=== PATIENT | female | born 1965 | race Caucasian/White ===

== ENCOUNTER → 2022-06-15 08:17 | Outpatient (CLI) | payer OTHER, SELFPAY ==
[2022-06-15 08:27] LABS: Microscopic, Urine URINE MICROSCOPIC (MICROSCOPIC)
[2022-06-15 08:53] LABS: Appearance,Urine SL CLOUDY (Clear); Bilirubin,Urine Negative (Negative); Blood, Urine TRACE-L (Negative); Color,Urine YELLOW (Yellow); Glucose,Urine (UA) Negative (Negative); Ketones,Urine Negative (Negative); Leukocyte Esterase,Urine 3+ (Negative); Nitrate,Urine Negative (Negative); Protein,Urine Negative (Negative); Specific Gravity, Urine 1.015 (1.005-1.030); Urobilinogen,Urine 0.2 EU/dl (0.2)
[2022-06-15 08:57] LABS: Basophils % 0.2 % (0.1-2.0); Eosinophils # 0.1 K/mm3 (0.0-0.4); Eosinophils % 1.1 % (0.1-12.0); Lymphocytes # 2.4 K/mm3 (0.7-4.5); Lymphocytes % 21.6 % (10-50); Mean Corpuscular HGB Conc 31.7 g/dL (31.8-35.4); Mean Corpuscular Hemoglobin 33.6 pg (27.0-31.2); Mean Corpuscular Volume 106.1 fl (81-99); Mean Platelet Volume 9.2 fl (7.4-10.4); Monocytes # 0.7 K/mm3 (0.1-1.0); Monocytes % 6.2 % (1.7-9.3); Neutrophils # 7.9 K/mm3 (1.8-7.8); Neutrophils % 70.8 % (37.0-80.0); Platelet Count 225 K/mm3 (142-424); Red Blood Count 3.86 M/mm3 (4.20-5.40); Red Cell Distribution Width 13.6 % (11.5-17.5); White Blood Count 11.1 K/mm3 (4.8-10.8)
[2022-06-15 09:01] LABS: Hemoglobin A1C 7.1 % (4.0-6.0)
[2022-06-15 09:12] LABS: Bacteria,Urine 1+ /lpf
[2022-06-15 09:24] LABS: Alanine Aminotransferase 28 U/L (12-78); Albumin Level 3.9 g/dl (3.5-5.0); Albumin/Globulin Ratio 1.9 (1.1-1.8); Alkaline Phosphatase 68 U/L (38-126); Anion Gap 4.8 mEq/L (5-15); Aspartate Amino Transferase 34 U/L (14-36); Bilirubin,Total 0.5 mg/dl (0.2-1.3); Blood Urea Nitrogen 14 mg/dl (7-17); Carbon Dioxide 29 mmol/L (22.0-30.0); Chloride 105 mmol/L (98-107); Chol/HDL Ratio 2.1 (1-3.5); Cholesterol 146 mg/dl (140-200); Estimated Glomerular Filt Rate 127 ml/min (>60); GFR (African American) 154 ML/MIN (>60); Globulin 2.1 g/dL (1.3-3.2); Glucose 96 mg/dl (74-100); HDL Cholesterol 71 mg/dl (40-60); Potassium 3.8 mmoL/L (3.5-5.1); Sodium 135 mmol/L (136-145); Triglycerides 103 mg/dl (30-150); VLDL Cholesterol 21 mg/dL (0-40)
[2022-06-15 09:29] LABS: Erythrocyte Sedimentation Rate 19 mm/hr (0-30)
[2022-06-15 09:35] LABS: C-Reactive Protein 5.4 mg/L (0-4); Direct LDL Cholesterol 63.93 mg/dL (100-129)
== END ==
PROVIDERS: PCP Nurse Practitioner Family; Visit Provider Nurse Practitioner Family
DX: M54.50 Low back pain, unspecified (principal); I48.91 Unspecified atrial fibrillation; I10 Essential (primary) hypertension; E11.9 Type 2 diabetes mellitus without complications; Z13.1 Encounter for screening for diabetes mellitus; Z13.220 Encounter for screening for lipoid disorders; Z79.84 Long term (current) use of oral hypoglycemic drugs; Z79.899 Other long term (current) drug therapy
CPT/HCPCS: 36415; 80053; 80061; 81001; 83036; 84443; 85025; 85651; 86140; 87086

== ENCOUNTER → 2022-06-22 08:56 | Outpatient (CLI) | payer OTHER, SELFPAY ==
--- NOTE | 2022-06-22 08:56 | XR_ITS ---
FINAL REPORT TECHNIQUE: Bone densitometry calculations of the lumbar spine and left hip were obtained. CLINICAL HISTORY: . POST MENOPAUSAL SCREENING FINDINGS: DEXA BONE DENSITY AXIAL SKELETON Using L1-4, the bone mineral density of the spine is 1.312 g/cm2, corresponding to T-score of 2.4 Using the left hip, the bone mineral density of the femoral neck is 0.795 g/cm2, corresponding to a T-score of -0.5 NOTE: T-score: Standard deviation compared with peak bone mass of young adult mean. *Following the recommendations of the International Society of Bone densitometry, classification of hip BMD is based on the lower of two T-scores; total hip or femoral neck. IMPRESSION: Normal bone mineral density of the lumbar spine and left hip. Reviewed, Interpreted and Dictated by Will Villatoro III, MD Transcribed by Luly Benítez Authenticated and [facility]
== END ==
PROVIDERS: PCP Nurse Practitioner Family; Visit Provider Nurse Practitioner Family
DX: Z78.0 Asymptomatic menopausal state (principal); Z13.820 Encounter for screening for osteoporosis
CPT/HCPCS: 77080

== ENCOUNTER → 2022-07-01 15:12 | Outpatient (CLI) | payer OTHER, SELFPAY | PROVIDERS: PCP Nurse Practitioner Family; Visit Provider Nurse Practitioner Family | DX: I42.9 Cardiomyopathy, unspecified (principal) | CPT/HCPCS: 93306 ==

== ENCOUNTER → 2022-07-05 12:57 | Outpatient (POV) | payer OTHER, SELFPAY ==
--- NOTE | 2022-07-05 13:16 | EXP.PAIN.OV ---
HPI Data of Consult Patient: new to practice Consult date: 07/05/22 Requesting Physician: Merced Cox APRN Primary Care Provider: Lori Petersen APRN Consult Narrative Reason for consult: Low back pain, bilateral leg pain, bilateral hip pain History of present illness: Ms. Goodrich is a 56 year old female who presents today as a new patient. She is a referral from Lori Petersen's office. Today she rates her pain a 7 out of 10. Patient states her pain is all in her low back with radiating symptoms into her bilateral lower extremities. She does describe this as a constant aching sensation with occasional sharp pains with certain movements. She states this has been going on for years and progressively worsened over time. She does state she notices more stiffness in the mornings and harder to bend and then it gets better as the day goes on. Patient does state that she also has hip pain that is worse due to being a side sleeper. She describes this as a sharp throbbing sensation with certain movements. Patient states that she was previously in a pain management group there in [place] for approximately 4 years where she was given pain medication as well as injections such as an epidural. She states these were hit or miss and sometimes they would provide 6 to 7 months of relief with just 1 injection. Patient has tried [id number] Tylenol with no additional relief. She does states she has an allergy to ibuprofen. Patient has also tried heat and ice and topical such as Biofreeze and CBD creams with no additional relief. Patient was also tried on gabapentin in the past however it made her very sick and she discontinued this. patient does have a history of A-fib and is currently on Eliquis. Patient states she is currently prescribed [place] 10 mg 4 times a day. Patient denies any side effects from this medication. She states that they did just move in May. Patient has had recent physical therapy just last year however it worsened her pain symptoms. She is interested in any additional help we can provide to give better pain improvement. Her Angel is [phone]. Its been reviewed and appropriate. CC: Merced Cox APRN [facility] Disclaimer: The information contained in this section may have been updated after the patient was seen, as this information can be updated by other users. Medical History (Updated 07/05/22 @ 16:16 by Merced Cox APRN) Afib Asthma BMI 32.0-32.9,adult Echocardiogram abnormal Encounter for screening for diabetes mellitus Establishing care with new doctor, encounter for H/O cardiovascular stress test Heart failure with reduced ejection fraction Paroxysmal A-fib Surgical History H/O colonoscopy History of partial hysterectomy Hx of tonsillectomy S/P ORIF (open reduction internal fixation) fracture Family History Father Diabetes Cancer colon Hypertension Social History (Updated 07/05/22 @ 13:36 by Jes Carvalho, BETSY) Smoking Status: Never smoker alcohol intake: current substance use type: denies use current occupational status: retired Travel in the last 8 weeks: None household members: spouse housing: house marital status: number of children: 3 current occupation: retired Review of Systems Review of Systems Review of systems:: pertinent systems reviewed and negative unless documented below Review of systems (narrative): Review of Systems: General: No recent weight changes, no fever, no sleep disturbances Respiratory: No cough, no shortness of air, no recurring pulmonary infections Cardiovascular/peripheral vascular: No chest pain, no palpitations, no edema, no shortness of breath Gastrointestinal: No new onset incontinence, normal bowel movements reported Genitourinary: No new onset incontinence Musculoskeletal: Low back pain, bilateral leg pain, bilateral h
[2022-07-05 13:35] VITALS: BP 129/79; PULSE 66; RESP 18; O2SAT 98; BMI 30.8
== END | disposition home or self-care (01) ==
PROVIDERS: PCP Nurse Practitioner Family; Visit Provider Nurse Practitioner Family
DX: M54.16 Radiculopathy, lumbar region (principal); M54.50 Low back pain, unspecified; M25.551 Pain in right hip; M25.552 Pain in left hip
CPT/HCPCS: 99202; G0463

== ENCOUNTER → 2022-07-05 14:07 | Outpatient (CLI) | payer OTHER, SELFPAY ==
--- NOTE | 2022-07-05 14:15 | XR_ITS ---
FINAL REPORT CLINICAL HISTORY: PAIN, low back pain FINDINGS: Five views were obtained. There is no acute fracture. There is no malalignment. There is moderate disc space narrowing throughout the lumbar spine. There is endplate sclerosis and anterior osteophytes at L2-L3 through L5-S1. There is vacuum disc phenomenon at L3-L4, L4-L5 and L5-S1. IMPRESSION: Moderate degenerative disc disease. Reviewed, Interpreted and Dictated by eKndrick Dee MD Transcribed by Saad Chávez Authenticated and [facility]
== END ==
PROVIDERS: PCP Nurse Practitioner Family; Visit Provider Anesthesiology
DX: M54.50 Low back pain, unspecified (principal)
CPT/HCPCS: 72110

== ENCOUNTER 2022-07-13 10:38 | Day surgery (SDC) | payer OTHER, SELFPAY ==
[2022-07-13 10:52] VITALS: BP 123/79; PULSE 78; RESP 18; TEMP 36.5; O2SAT 97; BMI 30.8
[2022-07-13 11:01] VITALS: BP 133/73; PULSE 60; RESP 18; O2SAT 98
[2022-07-13 11:02] VITALS: BP 133/73; PULSE 60; RESP 18; O2SAT 98
[2022-07-13 11:15] VITALS: BP 127/79; PULSE 78; RESP 18; O2SAT 97
--- NOTE | 2022-07-13 11:33 | P.PCN_ITS ---
Procedure Date: 07/13/22 Time: 11:00 Anesthesiologist:: Hakeem Franco CRNA Complications:: None Pre-procedure Diagnosis:: Degenerative disc disease lumbar spine multilevels. Lumbar radiculopathy Post-procedure Diagnosis:: Same. Indications for Procedure:: Patient is a very pleasant 56-year-old female comes our clinic today for lumbar epidural steroid injection at the L4-5 level. Patient complains of low back pain as well as bilateral hip and leg radicular symptoms at times. Patient r ates her pain today 08/14 Procedure Details:: Procedure: Lumbar epidural steroid injection under fluoroscopy Informed consent was obtained and the risks and benefits of the procedure were explained to the patient. The patient was taken to the procedure room and noninvasive monitors placed, including noninvasive blood pressure cuff and pulse oximeter. The back was viewed using C-arm Fluoroscopy and prepped using Chloraprep as a cleansing solution and the L4-L5 interspace was palpated. Skin and subcutaneous tissues were anesthetized using lidocaine 1.5% and a 25-gauge needle. After this, an 18-gauge Touhy epidural needle was placed into the L4-L5 interspace and advanced using fluoroscopic guidance and loss of resistance to air until the epidural space was encountered. After confirmation of needle placement in the epidural space, with dye, a solution containing normal saline, 3 mL and Depo-Medrol 80 mg were incrementally injected into the lumbar epidural space. The patient tolerated the procedure well with no complications. The patient was observed in the Pain Clinic and then discharged home neurologically intact. Plan and Disposition:: Patient was discharged without incident.
== END 2022-07-13 11:15 | disposition home or self-care (01) ==
LOC: SC.PAINP 10:39
PROVIDERS: PCP Nurse Practitioner Family; Visit Provider Nurse Anesthetist, Certified Registered
DX: M51.16 Intervertebral disc disorders with radiculopathy, lumbar region (principal)
CPT/HCPCS: 62323; J1040

== ENCOUNTER → 2022-08-12 14:59 | Outpatient (POV) | payer OTHER, SELFPAY ==
--- NOTE | 2022-08-12 15:02 | EXP.PAIN.SOA ---
[facility] Pain Management SOAP Note Subjective:: Patient is a pleasant 56-year-old female who presents today for follow-up of lumbar epidural steroid injection of L4-L5 on 07/13/2022. We are currently treating the patient for degenerative disc disease of lumbar spine with lumbar radiculopathy symptoms, bilateral hip pain. Today she rates her pain a 7 out of 10.? She denies any new trauma or injury. She denies any change in location or type of pain she experiences. She states the injection did provide at least 50% improvements however only lasting a couple of days. Patient states she was able to increase her activity during that timeframe with decreased pain symptoms. Today she states she is back to her baseline and states the pain continues to be in her low back with radiating symptoms into her lower extremities. She does describe this as an aching sensation with occasional sharp pains with certain movements.? Patient states the pain does interfere with her ability to perform activities of daily living such as cooking and cleaning. This is a chronic pain that has been going on for years and progressively worsened over time.?At her last visit we did prescribe methocarbamol 500 mg at bedtime. Patient states that she did not notice any additional improvement with this medication or the compounding cream. she has an allergy to ibuprofen.?She does have a history of A-fib and is currently on Eliquis.? She is currently prescribed [place] 10 mg 4 times a day.? Patient denies any side effects from this medication.? She states that they did just move in May.? Patient has had recent physical therapy just last year however it worsened her pain symptoms.? She is interested in any additional help we can provide to give better pain improvement.? Her Angel is [phone].? Its been reviewed and appropriate. Review of Systems: General: No recent weight changes, no fever, no sleep disturbances Respiratory: No cough, no shortness of air, no recurring pulmonary infections Cardiovascular/peripheral vascular: No chest pain, no palpitations, no edema, no shortness of breath Gastrointestinal: No new onset incontinence, normal bowel movements reported Genitourinary: No new onset incontinence Musculoskeletal: Low back pain Psychiatric: [Normal mood/affect] Neurological: [Denies weakness in extremities], [denies balance issues] Objective:: Physical Exam: General: Alert and oriented x3, no acute distress, pleasant and cooperative Lungs: Respirations even and unlabored, symmetrical chest expansion Eyes: PERRL Musculoskeletal: Flexion and extension of lumbar [spine] somewhat guarded secondary to pain, [antalgic gait noted] Neurological: Speech clear, no gross sensory deficit Assessment:: Degenerative disc disease of lumbar spine with lumbar radiculopathy symptoms, low back pain, bilateral hip pain Plan:: Patient is experiencing significant pain in her low back with limited range of motion. I have discussed with patient that she may benefit from repeat lumbar epidural steroid injection. Risk and benefits were discussed with the patient and she would like to proceed forward with this plan of care. Patient did have at least 50% improvement with her last injection only lasting short-term. Patient is on blood thinners and will have to come off of this prior to her injection. We will contact her doctor and confirm that she can stop taking this medication. I will also order the patient tizanidine 4 mg at bedtime and provide a 2-week supply of this medication. I have counseled the patient to discontinue the methocarbamol. We will schedule the patient for an LESI L4-L5. Patient has been instructed to contact the clinic with any concerns before the next appointment. Dr. Jones has reviewed this note and agrees with this plan of care. This note was dictated using voice recognition software and make contain errors or omissions. [facility] Disclaimer: The information contained in this section may have
[2022-08-12 15:07] VITALS: BP 115/80; PULSE 73; RESP 18; O2SAT 98; BMI 29.7
== END | disposition home or self-care (01) ==
PROVIDERS: PCP Nurse Practitioner Family; Visit Provider Nurse Practitioner Family
DX: M51.16 Intervertebral disc disorders with radiculopathy, lumbar region (principal); M25.551 Pain in right hip; M25.552 Pain in left hip
CPT/HCPCS: 99212; G0463

== ENCOUNTER 2022-08-12 21:31 | Emergency (ER) | payer OTHER, SELFPAY ==
[2022-08-12 21:40] VITALS: BP 145/74; PULSE 102; RESP 18; TEMP 36.8; O2SAT 96; BMI 29.7
--- NOTE | 2022-08-12 21:47 | XR_ITS ---
PROCEDURE INFORMATION: Exam: XR Chest Exam date and time: 08/12/2022 10:31 PM Age: 56 years old Clinical indication: Fever TECHNIQUE: Imaging protocol: Radiologic exam of the chest. Views: 2 views. COMPARISON: No relevant prior studies available. FINDINGS: Lungs: Unremarkable. No consolidation. Pleural spaces: Unremarkable. No pleural effusion. No pneumothorax. Heart/Mediastinum: Unremarkable. No cardiomegaly. Bones/joints: Multilevel degenerative disc and joint space changes of thoracolumbar spine. Vertebral body heights grossly preserved. IMPRESSION: No acute findings. No infiltration identified.
--- NOTE | 2022-08-12 21:47 | CT_ITS ---
PROCEDURE INFORMATION: Exam: CT Abdomen And Pelvis With Contrast Exam date and time: 08/12/2022 10:44 PM Age: 56 years old Clinical indication: Abdominal pain; Additional info: Rlq pain TECHNIQUE: Imaging protocol: Computed tomography of the abdomen and pelvis with contrast. Radiation optimization: All CT scans at this facility use at least one of these dose optimization techniques: automated exposure control; mA and/or kV adjustment per patient size (includes targeted exams where dose is matched to clinical indication); or iterative reconstruction. Contrast material: ISOVUE; Contrast volume: 75 ml; Contrast route: IV; REPORTING DATA: Count of CT and Cardiac NM exams in prior 12 months: This patient has received 0 known CTs and 0 known cardiac nuclear medicine studies in the 12 months prior to the current study. COMPARISON: CR XR CHEST 2V 08/12/2022 10:31 PM FINDINGS: Liver: Fatty liver infiltration. Liver measures 20 cm. Gallbladder and bile ducts: Normal. No calcified stones. No ductal dilation. Pancreas: Normal. No ductal dilation. Spleen: Normal. No splenomegaly. Adrenal glands: Normal. No mass. Kidneys and ureters: Normal. No hydronephrosis. Stomach and bowel: Scattered colonic diverticula without pericolonic fat stranding. Appendix: No evidence of appendicitis. Intraperitoneal space: Unremarkable. No free air. No significant fluid collection. Vasculature: Unremarkable. No abdominal aortic aneurysm. Lymph nodes: Unremarkable. No enlarged lymph nodes. Urinary bladder: Unremarkable as visualized. Reproductive: Unremarkable as visualized. Bones/joints: Multilevel degenerative disc and joint space changes most pronounced at L4/5 and L5/S1. Vertebral body heights grossly preserved. Cortices intact. Soft tissues: Unremarkable. IMPRESSION: 1. Hepatomegaly with fatty liver infiltration. 2. Colonic diverticulosis.
[2022-08-12 21:57] LABS: Basophils % 0.2 % (0.1-2.0); Eosinophils # 0.4 K/mm3 (0.0-0.4); Eosinophils % 4.8 % (0.1-12.0); Hematocrit 43.2 % (37.0-47.0); Hemoglobin 13.3 g/dL (12.2-16.2); Lymphocytes # 0.5 K/mm3 (0.7-4.5); Lymphocytes % 5.9 % (10-50); Mean Corpuscular HGB Conc 30.8 g/dL (31.8-35.4); Mean Corpuscular Hemoglobin 31.9 pg (27.0-31.2); Mean Corpuscular Volume 103.7 fl (81-99); Mean Platelet Volume 8.4 fl (7.4-10.4); Monocytes # 0.2 K/mm3 (0.1-1.0); Monocytes % 2.4 % (1.7-9.3); Neutrophils # 6.8 K/mm3 (1.8-7.8); Neutrophils % 86.6 % (37.0-80.0); Platelet Count 277 K/mm3 (142-424); Red Blood Count 4.17 M/mm3 (4.20-5.40); Red Cell Distribution Width 12.6 % (11.5-17.5); White Blood Count 7.9 K/mm3 (4.8-10.8)
[2022-08-12 22:03] LABS: Alanine Aminotransferase 31 U/L (12-78); Albumin Level 4.3 g/dl (3.5-5.0); Albumin/Globulin Ratio 1.4 (1.1-1.8); Alkaline Phosphatase 96 U/L (38-126); Amylase 50 U/L (30-110); Anion Gap 13.4 mEq/L (5-15); Aspartate Amino Transferase 43 U/L (14-36); Bilirubin,Total 0.6 mg/dl (0.2-1.3); Blood Urea Nitrogen 9 mg/dl (7-17); Calcium 8.9 mg/dl (8.4-10.2); Carbon Dioxide 29 mmol/L (22.0-30.0); Chloride 98 mmol/L (98-107); Creatinine Clearance Estimated 153 mL/min (50-200); Estimated Glomerular Filt Rate 103 ml/min (>60); GFR (African American) 125 ML/MIN (>60); Globulin 3.1 g/dL (1.3-3.2); Glucose 93 mg/dl (74-100); Lipase 127 U/L (23-300); Potassium 4.4 mmoL/L (3.5-5.1); Sodium 136 mmol/L (136-145); Total Protein,Serum 7.4 g/dl (6.3-8.2)
[2022-08-12 22:08] LABS: C-Reactive Protein 12.1 mg/L (0-4)
--- NOTE | 2022-08-12 22:16 | HMH.EDABDPAI ---
Discharge Plan Disposition Patient Disposition: Home, Self-Care Chief Complaint: Abdominal Pain Prescriptions Prescriptions: No Action levalbuterol tartrate [Xopenex HFA] 45 mcg/actuation HFA aerosol inhaler 2 puff inhalation Q4-6H PRN (Reason: Breathing Problems) lisinopril 20 mg tablet 20 mg PO DAILY escitalopram oxalate [Lexapro] 20 mg tablet 20 mg PO DAILY Eliquis 5 mg tablet 5 mg PO BID conjugated estrogens 0.625 mg tablet 0.625 mg PO DAILY Rx Instructions: cyclically sotalol [Betapace] 120 mg tablet 120 mg PO BID montelukast [Singulair] 10 mg tablet 10 mg PO HS fluticasone furoate-vilanterol [Breo Ellipta] 200-25 mcg/dose blister with device 1 inh inhalation BID multivitamin Tablet 1 tab PO DAILY albuterol sulfate 90 mcg/actuation HFA aerosol inhaler 2 inh inhalation Q6H PRN (Reason: shortness of breath or wheezing) 90 Days Qty: 8.5 1RF (DME) FreeStyle Lite Strips Strip See Rx Instructions .ROUTE .MEDSUPPLY Rx Instructions: As directed (DME) blood-glucose meter [FreeStyle Lite Meter] Kit See Rx Instructions .ROUTE .MEDSUPPLY Rx Instructions: As directed alcohol swabs [Alcohol Pads] Pads, Medicated 1 pad topical QID Trulicity 0.75 mg/0.5 mL pen injector 0.75 mg SQ WEEKLY azelastine 137 mcg (0.1 %) aerosol,spray 2 spray intranasal HS Rx Instructions: administer into each nostril fluticasone propionate [Flonase Allergy Relief] 50 mcg/actuation spray,suspension 2 spray intranasal DAILY Rx Instructions: administer into each nostril aripiprazole 5 mg tablet 5 mg PO AM fluticasone furoate-vilanterol [Breo Ellipta] 200-25 mcg/dose blister with device 1 inh inhalation DAILY tizanidine [Zanaflex] 4 mg tablet 4 mg PO HS Qty: 14 0RF Referrals Follow up/Referrals: Lori Petersen APRN [Primary Care Provider] - See instructions Clinical Impressions Clinical Impression: Febrile illness, acute Instructions Patient Instructions: DI for Fever (Symptom) -- Adult Discharge ED Provider: Stefanie (ED)Jn Abdominal Pain HPI General Chief Complaint: Abdominal Pain Stated Complaint: fever,chills,stomach pain,body aches Time Seen by Provider: 08/12/22 21:50 Mode of Arrival: Ambulatory Source of Information: Patient, Spouse and Medical Record Limitations: No Limitations Description of Symptoms (Recalled from ER Triage Doc. by RN): pt c/o myalgia, chills, fever (103F), RLQ pain, and nausea. pt also c/o a rash to her RLE that she believes started from insect bites. pt states she started feeling bad around 1630. History of Present Illness HPI narrative: acute onset of chills and achey and reported fever at home - nausea and no diarrhea - no cough - limited rash to rt lower leg - no known tick bite Onset (ago): hour(s) Consistency: intermittent Severity: moderate Related Data Home Medications Medication Instructions Recorded Confirmed apixaban 5 mg tablet (Eliquis) 5 mg PO BID Blood thinner 06/14/22 08/12/22 conjugated estrogens 0.625 mg 0.625 mg PO DAILY HORMONE 06/14/22 08/12/22 tablet REPLACEMENT escitalopram oxalate 20 mg tablet 20 mg PO DAILY MOOD 06/14/22 08/12/22 (Lexapro) fluticasone furoate 200 1 inh inhalation BID Breathing 06/14/22 08/12/22 mcg-vilanterol 25 mcg/dose problems inhalation powder (Breo Ellipta) levalbuterol tartrate 45 2 puff inhalation Q4-6H PRN 06/14/22 08/12/22 mcg/actuation aerosol inhaler Breathing Problems (Xopenex HFA) lisinopril 20 mg tablet 20 mg PO DAILY BLOOD PRESSURE 06/14/22 08/12/22 montelukast 10 mg tablet 10 mg PO HS ALLERGIES 06/14/22 08/12/22 (Singulair) multivitamin 1 tab PO DAILY SUPPLIMENT 06/14/22 08/12/22 sotalol 120 mg tablet (Betapace) 120 mg PO BID BLOOD PRESSURE 06/14/22 08/12/22 alcohol swabs (Alcohol Pads) 1 pad topical QID Diabetes 07/05/22 08/12/22 blood sugar diagnostic (FreeStyle
[2022-08-12 22:21] LABS: MANUAL DIFFERENTIAL MANUAL DIFFERENTIAL (MANUAL DIFF)
[2022-08-12 22:39] LABS: Coronavirus 19, PCR Not Detected (NotDetected); Influenza A, PCR Not Detected (NotDetected); Influenza B, PCR Not Detected (NotDetected)
[2022-08-12 22:40] LABS: Eosinophils % 4 % (0-3); Lymphocytes % 8 % (10-50); Macrocytosis 1+; Monocytes % 2 % (2-9); Neutrophils % 85 % (42-76); Platelet Estimate Normal; Stomatocytes 1+; Total Cells Counted 100
[2022-08-12 22:43] LABS: Erythrocyte Sedimentation Rate 20 mm/hr (0-30)
[2022-08-12 22:47] LABS: Lactic Acid 1.4 mmol/L (0.7-2.1)
[2022-08-12 23:07] LABS: Microscopic, Urine URINE MICROSCOPIC (MICROSCOPIC)
[2022-08-12 23:10] LABS: Appearance,Urine CLEAR (Clear); Bilirubin,Urine Negative (Negative); Blood, Urine TRACE-I (Negative); Color,Urine YELLOW (Yellow); Glucose,Urine (UA) Negative (Negative); Ketones,Urine Negative (Negative); Leukocyte Esterase,Urine Negative (Negative); Nitrate,Urine Negative (Negative); PH,Urine 5.5 (5.0-8.5); Protein,Urine Negative (Negative); Urobilinogen,Urine 0.2 EU/dl (0.2)
[2022-08-13 05:46] VITALS: BP 137/78; PULSE 90; RESP 18; TEMP 36.8; O2SAT 96
[2022-08-13 06:29] LABS: RBC,Urine Occasional #/hpf (0-3)
[2022-08-13 06:30] LABS: Squamous Epithelial Cell,Urine Occasional #/hpf (0-5)
== END 2022-08-13 00:04 | disposition home or self-care (01) ==
PROVIDERS: Emergency Provider Emergency Medicine; PCP Nurse Practitioner Family
DX: R10.31 Right lower quadrant pain (principal); R11.0 Nausea; R50.9 Fever, unspecified; I50.20 Unspecified systolic (congestive) heart failure; I48.0 Paroxysmal atrial fibrillation; J45.909 Unspecified asthma, uncomplicated
CPT/HCPCS: 71046; 74177; 80053; 81001; 82150; 83605; 83690; 85007; 85025; 85651; 86140; 87040; 87635; 87636; 96361; 96374; 96375; 99284; 99285; C9803; J0131; J2405; Q9967; U0003; U0005

== ENCOUNTER 2022-08-31 12:44 | Day surgery (SDC) | payer OTHER, SELFPAY ==
[2022-08-31 13:04] VITALS: BP 116/84; PULSE 78; RESP 18; TEMP 36.4; O2SAT 94; BMI 28.8
[2022-08-31 13:17] VITALS: BP 128/79; PULSE 78; RESP 18; O2SAT 98
[2022-08-31 13:18] VITALS: BP 128/79; PULSE 78; RESP 18; O2SAT 98
--- NOTE | 2022-08-31 13:27 | EXP.PAIN.PRO ---
Procedure Date: 08/31/22 Time: 13:20 Anesthesiologist:: Hakeem Franco CRNA Complications:: None Pre-procedure Diagnosis:: Degenerative disc lumbar spine multilevels. Lumbar radiculopathy Post-procedure Diagnosis:: Same. Indications for Procedure:: Very pleasant 56-year-old female comes our clinic today for second lumbar epidural steroid injections L4-5 level. Patient complains of low back pain as well as bilateral hip and leg radicular pain. She rates her pain 7/10. Patient reports minimal relief after her first lumbar epidural steroid injection at the L4-5 level. I think it is reasonable to attempt a second injection for relief. Procedure Details:: Informed consent was obtained and the risks and benefits of the procedure were explained to the patient. The patient was taken to the procedure room and noninvasive monitors placed, including noninvasive blood pressure cuff and pulse oximeter. The back was viewed using C-arm Fluoroscopy and prepped using Chloraprep as a cleansing solution and the L4-L5 interspace was palpated. Skin and subcutaneous tissues were anesthetized using lidocaine 1.5% and a 25-gauge needle. After this, an 18-gauge Touhy epidural needle was placed into the L4-L5 interspace and advanced using fluoroscopic guidance and loss of resistance to air until the epidural space was encountered. After confirmation of needle placement in the epidural space, with dye, a solution containing normal saline, 3 mL and Depo-Medrol 80 mg were incrementally injected into the lumbar epidural space. The patient tolerated the procedure well with no complications. Plan and Disposition:: Patient was discharged without incident.
[2022-08-31 13:32] VITALS: BP 111/82; PULSE 78; RESP 18; O2SAT 94
== END 2022-08-31 13:32 | disposition home or self-care (01) ==
PROVIDERS: PCP Nurse Practitioner Family; Visit Provider Nurse Anesthetist, Certified Registered
DX: M51.16 Intervertebral disc disorders with radiculopathy, lumbar region (principal)
CPT/HCPCS: 62323; J1040

== ENCOUNTER → 2022-09-17 10:35 | Outpatient (POV) | payer OTHER, SELFPAY ==
[2022-09-17 10:56] VITALS: BP 121/79; PULSE 68; RESP 18; O2SAT 97; BMI 29.3
--- NOTE | 2022-09-17 11:05 | A.OFFVIS_ITS ---
[facility] Pain Management SOAP Note Subjective:: This patient is a very pleasant 56-year-old female that comes our clinic today for follow-up visit after receiving a second lumbar epidural steroid injection on 08/31/2022 the L4-5 level. Patient reporting significant improvement following the injection terms of her low back pain as well as bilateral hip and leg radicular symptoms. Patient rates her pain today 3/10. Patient states she is having some increase in the left hip and leg radicular symptoms. However, not anywhere near as bad as it was prior to the second lumbar epidural steroid injection. Patient requesting a third lumbar epidural steroid injection within the next 4 weeks. I think this would be reasonable. Her Angel #[phone] has been reviewed and appropriate. Patient does have a history of atrial fibrillation. She is on Eliquis. I discussed with her regarding discontinuing this for 48 hours prior to the injection. She voices understanding. Objective:: Patient is awake alert [place] x3. In no acute distress. Flexion-extension lumbar spine somewhat guarded secondary to pain. Deep tendon reflexes upper lower extremities normal. Motor strength upper and lower extremities normal. There is no gross sensory deficit. Gait is normal. Assessment:: Degenerative disc disease lumbar spine multilevels. Lumbar radiculopathy. Plan:: We will schedule the patient for a third lumbar epidural steroid injection at the L4-5 level. I discussed in detail with the patient regarding the injection. Answered her questions. She wishes to proceed. [facility] Disclaimer: The information contained in this section may have been updated after the patient was seen, as this information can be updated by other users. Medical History Afib Allergic rhinitis Asthma BMI 30.0-30.9,adult BMI 32.0-32.9,adult Dyspnea on exertion Echocardiogram abnormal Encounter for screening for diabetes mellitus Establishing care with new doctor, encounter for Febrile illness, acute H/O cardiovascular stress test Heart failure with reduced ejection fraction Paroxysmal A-fib Surgical History H/O colonoscopy History of partial hysterectomy Hx of tonsillectomy S/P ORIF (open reduction internal fixation) fracture Family History Father Diabetes Cancer colon Hypertension Social History Smoking Status: Never smoker alcohol intake: current substance use type: denies use current occupational status: retired Travel in the last 8 weeks: None household members: spouse housing: house marital status: number of children: 3 current occupation: retired
== END ==
PROVIDERS: PCP Nurse Practitioner Family; Visit Provider Nurse Practitioner Family
DX: M51.16 Intervertebral disc disorders with radiculopathy, lumbar region (principal)
CPT/HCPCS: 99212; G0463

== ENCOUNTER 2022-10-15 13:14 | Day surgery (SDC) | payer OTHER, SELFPAY ==
[2022-10-15 13:30] VITALS: BP 136/88; PULSE 79; RESP 18; TEMP 36.5; O2SAT 97; BMI 29.4
[2022-10-15 13:46] VITALS: BP 132/87; PULSE 76; RESP 18; O2SAT 95
[2022-10-15 13:47] VITALS: BP 132/87; PULSE 74; RESP 18; O2SAT 95
--- NOTE | 2022-10-15 13:58 | EXP.PAIN.PRO ---
Procedure Date: 10/15/22 Time: 13:55 Anesthesiologist:: Hakeem Franco CRNA Complications:: None
[2022-10-15 14:00] VITALS: BP 135/89; PULSE 76; RESP 18; O2SAT 97
--- NOTE | 2022-10-15 14:08 | P.PCN_ITS ---
Procedure Date: 10/15/22 Time: 14:00 Anesthesiologist:: Hakeem Franco CRNA Complications:: None Pre-procedure Diagnosis:: Degenerative disc lumbar spine multilevels. Lumbar radiculopathy. Lumbar spinal stenosis. Multilevel lumbar facet arthropathy. Lumbar spondylosis Post-procedure Diagnosis:: Same Indications for Procedure:: This patient is a very pleasant 57-year-old female that comes our clinic today for a third lumbar epidural steroid injection at L4-5 level. Patient has had so me moderate improvement terms of her overall low back pain as well as bilateral hip and leg radicular symptoms with previous injections. However, patient states the injections are not lasting. Patient has severe degenerative disc L4- 5 and L5-S1. Discussed spine surgery consultation with the patient. She wishes to proceed. Patient not really interested in having back surgery however, she would like to be informed as to what her options are. I will refer her to Dr. Stewart for consultation. Procedure Details:: Procedure: Lumbar epidural steroid injection under fluoroscopy Informed consent was obtained and the risks and benefits of the procedure were explained to the patient. The patient was taken to the procedure room and noninvasive monitors placed, including noninvasive blood pressure cuff and pulse oximeter. The back was viewed using C-arm Fluoroscopy and prepped using Chloraprep as a cleansing solution and the L4-L5 interspace was palpated. Skin and subcutaneous tissues were anesthetized using lidocaine 1.5% and a 25-gauge needle. After this, an 18-gauge Touhy epidural needle was placed into the L4-L5 interspace and advanced using fluoroscopic guidance and loss of resistance to air until the epidural space was encountered. After confirmation of needle placement in the epidural space, with dye, a solution containing normal saline, 3 mL and Depo-Medrol 80 mg were incrementally injected into the lumbar epidural space. The patient tolerated the procedure well with no complications. The patient was observed in the Pain Clinic and then discharged home neurologically intact. Plan and Disposition:: Patient was discharged without incident.
== END 2022-10-15 14:00 | disposition home or self-care (01) ==
LOC: SC.PAINP 13:14
PROVIDERS: PCP Nurse Practitioner Family; Visit Provider Nurse Anesthetist, Certified Registered
DX: M51.16 Intervertebral disc disorders with radiculopathy, lumbar region (principal); M47.26 Other spondylosis with radiculopathy, lumbar region
CPT/HCPCS: 62323

== ENCOUNTER → 2022-11-01 12:53 | Outpatient (CLI) | payer OTHER, SELFPAY ==
--- NOTE | 2022-11-01 13:51 | PC.NURSE ---
PFT and 6 Minute Walk Test completed without incident. Albuterol 0.083% given via HHN, per protocol, Pt tolerated tx well.
[2022-11-01 16:16] LABS: Basophils % 0.5 % (0.1-2.0); Eosinophils # 0.6 K/mm3 (0.0-0.4); Eosinophils % 7.4 % (0.1-12.0); Hemoglobin 13.9 g/dL (12.2-16.2); Lymphocytes # 2.6 K/mm3 (0.7-4.5); Lymphocytes % 32.4 % (10-50); Mean Corpuscular Hemoglobin 34.9 pg (27.0-31.2); Mean Corpuscular Volume 105.5 fl (81-99); Mean Platelet Volume 8.4 fl (7.4-10.4); Monocytes # 0.6 K/mm3 (0.1-1.0); Monocytes % 6.9 % (1.7-9.3); Neutrophils # 4.3 K/mm3 (1.8-7.8); Neutrophils % 52.7 % (37.0-80.0); Platelet Count 275 K/mm3 (142-424); Red Blood Count 3.98 M/mm3 (4.20-5.40); Red Cell Distribution Width 13.7 % (11.5-17.5); White Blood Count 8.1 K/mm3 (4.8-10.8)
[2022-11-05 00:09] LABS: D001-IgE D pteronyssinus <0.10 kU/L (Class 0); D002-IgE D farinae <0.10 kU/L (Class 0); E001-IgE Cat Dander <0.10 kU/L (Class 0); E005-IgE Dog Dander <0.10 kU/L (Class 0); E072-IgE Mouse Urine <0.10 kU/L (Class 0); G002-IgE Bermuda Grass <0.10 kU/L (Class 0); G006-IgE Timothy Grass <0.10 kU/L (Class 0); I006-IgE Cockroach, German <0.10 kU/L (Class 0); Immunoglobulin E, Total 212 IU/mL (6-495); M001-IgE Penicillium chrysogen <0.10 kU/L (Class 0); M002-IgE Cladosporium herbarum <0.10 kU/L (Class 0); M003-IgE Aspergillus fumigatus <0.10 kU/L (Class 0); M006-IgE Alternaria alternata <0.10 kU/L (Class 0); T001-IgE Maple/Box Elder <0.10 kU/L (Class 0); T003-IgE Common Silver Birch <0.10 kU/L (Class 0); T006-IgE Cedar, Mountain <0.10 kU/L (Class 0); T007-IgE Oak, White <0.10 kU/L (Class 0); T008-IgE Elm, American <0.10 kU/L (Class 0); T010-IgE Walnut <0.10 kU/L (Class 0); T011-IgE Maple Leaf Sycamore <0.10 kU/L (Class 0); T014-IgE Cottonwood <0.10 kU/L (Class 0); T015-IgE Ash, White <0.10 kU/L (Class 0); T022-IgE Pecan, Hickory <0.10 kU/L (Class 0); T070-IgE White Mulberry <0.10 kU/L (Class 0); W001-IgE Ragweed, Short <0.10 kU/L (Class 0); W011-IgE Thistle, Russian <0.10 kU/L (Class 0); W014-IgE Pigweed, Common <0.10 kU/L (Class 0); W018-IgE Sheep Sorrel <0.10 kU/L (Class 0)
== END ==
PROVIDERS: PCP Nurse Practitioner Family; Visit Provider Internal Medicine Pulmonary Disease
DX: R06.09 Other forms of dyspnea (principal); J45.909 Unspecified asthma, uncomplicated
CPT/HCPCS: 36415; 82785; 85025; 86003; 94060; 94618; 94726; 94729

== ENCOUNTER → 2022-12-28 09:51 | Outpatient (CLI) | payer OTHER, SELFPAY ==
--- NOTE | 2022-12-28 09:55 | XR_ITS ---
FINAL REPORT CLINICAL HISTORY: hip pain FINDINGS: 2 views of the right hip were obtained. There is no acute fracture or dislocation. There are mild degenerative changes of the right hip. There is degenerative change of the lower lumbar spine. Pelvic calcifications likely represent phleboliths. IMPRESSION: No acute process. Reviewed, Interpreted and Dictated by Will Villatoro III, MD Transcribed by Saad Chávez Authenticated and [facility]
--- NOTE | 2022-12-28 09:55 | XR_ITS ---
FINAL REPORT CLINICAL HISTORY: hip pain FINDINGS: Left hip Three views were obtained. There is no acute fracture or dislocation. There are degenerative changes of the lower lumbar spine. There are mild degenerative changes of the hip. Multiple presumed phleboliths are seen in the pelvis. There is chronic calcification adjacent to the greater trochanter. No soft tissue abnormality is identified. IMPRESSION: Degenerative changes without acute process. Reviewed, Interpreted and Dictated by Will Villatoro III, MD Transcribed by Jessica Cerda Authenticated and [facility]
== END ==
PROVIDERS: PCP Emergency Medicine; Visit Provider Emergency Medicine
DX: M25.551 Pain in right hip (principal); M25.552 Pain in left hip
CPT/HCPCS: 73502

== ENCOUNTER → 2023-01-20 09:41 | Outpatient (CLI) | payer OTHER, SELFPAY ==
--- NOTE | 2023-01-20 09:42 | MM_ITS ---
PROCEDURE INFORMATION: Exam: MG Bilateral Screening 3D Mammography Exam date and time: 01/20/2023 9:46 AM Age: 57 years old Clinical indication: Screening examination TECHNIQUE: Imaging protocol: Bilateral Screening tomosynthesis and 2D mammography including computer-aided detection (CAD) when performed. COMPARISON: 1. MG MA Mammogram Screening Digital with CAD-Bilateral 09/29/2021 8:07 AM 2. MG SCREENING MAMMOGRAPHY DIGITAL 01/02/2020 10:29 AM FINDINGS: MAMMOGRAPHY: Breast composition: There are scattered areas of fibroglandular density. Mass: None. Architectural distortion: None. Calcifications: No suspicious calcifications. Asymmetric density: None. Skin thickening: None. Axillary adenopathy: None. IMPRESSION: No mammographic evidence of malignancy. Annual screening is recommended unless otherwise clinically indicated. ASSESSMENT: BI-RADS Category 1: Negative
== END ==
PROVIDERS: PCP Emergency Medicine; Visit Provider Emergency Medicine
DX: Z12.31 Encounter for screening mammogram for malignant neoplasm of breast (principal)
CPT/HCPCS: 77063; 77067

== ENCOUNTER → 2023-02-18 23:48 | Outpatient (CLI) | payer OTHER, SELFPAY ==
[2023-02-18 18:37] LABS: Hemoglobin A1C 4.7 % (4.0-6.0)
[2023-02-18 18:48] LABS: Amphetamine/Metha Screen,Urine Negative ng/ml (<1000)
[2023-02-18 18:50] LABS: Cannabinoid Screen,Urine Negative ng/ml (<50)
[2023-02-18 18:51] LABS: Barbiturates Screen,Urine Negative ng/ml (<200)
[2023-02-18 18:52] LABS: Benzodiazepines Screen,Urine Negative ng/ml (<200); Opiate Screen,Urine Positive ng/ml (<300)
[2023-02-18 18:53] LABS: 25-OH Vitamin D, Total 42.4 ng/mL (30-100); Cocaine Screen,Urine Negative ng/ml (<300); Methadone Screen,Urine Negative ng/ml (<300)
[2023-02-18 18:54] LABS: Phencyclidine Screen,Urine Negative ng/ml (<25)
[2023-02-18 19:42] LABS: Vitamin B12 865 pg/mL (239-931)
[2023-02-18 19:50] LABS: Folate > 20.00 ng/mL
== END ==
PROVIDERS: PCP Internal Medicine; Visit Provider Internal Medicine
DX: F11.90 Opioid use, unspecified, uncomplicated (principal); D75.89 Other specified diseases of blood and blood-forming organs; Z13.1 Encounter for screening for diabetes mellitus; Z13.21 Encounter for screening for nutritional disorder; Z79.899 Other long term (current) drug therapy
CPT/HCPCS: 80305; 82306; 82607; 82746; 83036

== ENCOUNTER 2023-04-08 11:11 | Outpatient (CLI) | payer OTHER, SELFPAY ==
--- NOTE | 2023-04-08 11:26 | XR_ITS ---
FINAL REPORT CLINICAL HISTORY: Ovaries Rule out foreign body COMPARISON: 12/28/2022 FINDINGS: Pelvis A single view was obtained. No fracture is identified Numerous pelvic calcifications are likely phleboliths. No metallic foreign body is evident. If foreign body is nonmetallic, consider CT. IMPRESSION: No acute process. Reviewed, Interpreted and Dictated by Gloria Rogers MD Transcribed by Jessica Cerda Authenticated and [facility]
[2023-04-09 08:34] LABS: Progesterone <0.1 ng/mL (.); Testosterone,Total <3 ng/dL (4-50)
[2023-04-13 00:10] LABS: Estrogen 242 pg/mL (40-244)
== END 2023-04-08 23:59 ==
PROVIDERS: PCP Internal Medicine; Visit Provider Obstetrics & Gynecology
DX: Z01.419 Encounter for gynecological examination (general) (routine) without abnormal findings (principal)
CPT/HCPCS: 36415; 72170; 82672; 84144; 84403

== ENCOUNTER 2023-04-18 13:43 | Outpatient (CLI) | payer OTHER, SELFPAY ==
[2023-04-18 15:59] LABS: Creatinine,Urine Random 55 mg/dL (Not Estab.)
[2023-04-18 16:05] LABS: Microalbumin < 6.000 mg/L (0-16.7)
== END 2023-04-18 23:59 ==
LOC: LAB.DROPOF 13:43
PROVIDERS: PCP Internal Medicine; Visit Provider Internal Medicine
DX: E11.9 Type 2 diabetes mellitus without complications (principal)
CPT/HCPCS: 82043; 82570

== ENCOUNTER 2023-05-03 11:24 | Outpatient (CLI) | payer OTHER, SELFPAY ==
[2023-05-03 12:31] LABS: Basophils % 0.3 % (0.1-2.0); Eosinophils # 0.2 K/mm3 (0.0-0.4); Eosinophils % 1.8 % (0.1-12.0); Hemoglobin 13.4 g/dL (12.2-16.2); Lymphocytes # 2.6 K/mm3 (0.7-4.5); Lymphocytes % 30.5 % (10-50); Mean Corpuscular HGB Conc 32.6 g/dL (31.8-35.4); Mean Corpuscular Hemoglobin 35.3 pg (27.0-31.2); Mean Corpuscular Volume 108.2 fl (81-99); Mean Platelet Volume 8.3 fl (7.4-10.4); Monocytes # 0.6 K/mm3 (0.1-1.0); Monocytes % 6.4 % (1.7-9.3); Neutrophils # 5.3 K/mm3 (1.8-7.8); Platelet Count 325 K/mm3 (142-424); Red Blood Count 3.79 M/mm3 (4.20-5.40); Red Cell Distribution Width 13.2 % (11.5-17.5); White Blood Count 8.7 K/mm3 (4.8-10.8)
== END 2023-05-03 23:59 ==
LOC: LAB.DROPOF 11:24
PROVIDERS: PCP Internal Medicine; Visit Provider Internal Medicine
DX: E11.69 Type 2 diabetes mellitus with other specified complication (principal); E66.9 Obesity, unspecified; Z68.32 Body mass index [BMI] 32.0-32.9, adult
CPT/HCPCS: 83036; 85025

== ENCOUNTER 2023-05-23 12:53 | Outpatient (POV) | payer OTHER, SELFPAY ==
[2023-05-23 13:20] VITALS: BP 125/83; PULSE 76; RESP 18; O2SAT 98; BMI 31.5
--- NOTE | 2023-05-23 13:40 | A.OFFVIS_ITS ---
[facility] Pain Management SOAP Note Subjective:: Patient is a pleasant 57-year-old female who presents today for follow-up. We are currently treating the patient for degenerative disc disease of lumbar spine with lumbar radiculopathy symptoms, bilateral hip pain. Today she rates her pain a 10 out of 10.? She denies any new trauma or injury. She states she continues to have pain in her low back with radiating symptoms into her lower extremities. She does describe this as an aching sensation with occasional sharp pains with certain movements.? Patient states the pain does interfere with her ability to perform activities of daily living such as cooking and cleaning. Patient was sent to [facility] office and states that this she ended up getting injections for her hip bursitis which did help a little however she felt overall that she did get any additional improvement with her overall low back symptoms. She did previously have a lumbar epidural back last year and states that she is interested in repeating this injection as it did help her to day-to-day pain. She does have a history of A-fib and is currently on Eliquis.? She is currently prescribed [place] 10 mg 4 times a day from her primary care.? Patient denies any side effects from this medication.? Her Angel has been reviewed and is appropriate. Review of Systems: General: No recent weight changes, no fever, no sleep disturbances Respiratory: No cough, no shortness of air, no recurring pulmonary infections Cardiovascular/peripheral vascular: No chest pain, no palpitations, no edema, no shortness of breath Gastrointestinal: No new onset incontinence, normal bowel movements reported Genitourinary: No new onset incontinence Musculoskeletal: Low back pain bilateral leg pain Psychiatric: [Normal mood/affect] Neurological: [Denies weakness in extremities], [denies balance issues] Objective:: Physical Exam: General: Alert and oriented x3, no acute distress, pleasant and cooperative Lungs: Respirations even and unlabored, symmetrical chest expansion Eyes: PERRL Musculoskeletal: Flexion and extension of lumbar [spine] somewhat guarded secondary to pain, [antalgic gait noted] Neurological: Speech clear, no gross sensory deficit Assessment:: degenerative disc disease of lumbar spine with lumbar radiculopathy symptoms, bilateral hip pain Plan:: Patient is experiencing worsening pain in her low back and legs with limited range of motion. I have discussed with the patient that she may benefit from repeat lumbar epidural steroid injection. Risk and benefits were discussed with the patient and she would like to proceed forward with this plan of care. Patient did previously have a lumbar epidural that did provide more than 50% relief last year. We will schedule the patient for an LESI L4-L5. Patient is currently on blood thinners and we will contact Dr. Larry's office to confirm that she can stop this medication prior to this injection. I have also discussed with the patient in future she may benefit from a spinal cord stimulator trial or pain pump trial. We will follow-up with these options at later visits. Patient has been instructed to contact the clinic with any concerns before the n ext appointment. Dr. Jones has reviewed this note and agrees with this plan of care. This note was dictated using voice recognition software and make contain errors or omissions. [facility] Disclaimer: The information contained in this section may have been updated after the patient was seen, as this information can be updated by other users. Medical History Afib Allergic rhinitis Asthma Patient is currently on is also using leave albuterol MDI as well. Albuterol MDI, as well as fluticasone and the trilogy formulation. Patient does not smoke. 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 She is on long-term anticoagulation and being followed by cardiology. Dyspnea on exertion Echocardiogram abnormal 12/2019. LV size was mildly dilated, normal wall thickness, LVEF 30-35%, severe global hypokinesis, elevated LVEDP, mild RVE, mild LA/ERNIE, moderate MR, mild TR, dilated IVC, RVSP 47 mmHg Febrile illness, acute GERD (gastroesophageal reflux disease) H/O cardiovascular stress test 04/2020 LV perfusion normal. LVEF 62% Heart failure with reduced ejection fraction Paroxysmal A-fib Surgical History H/O colonoscopy 2019 WNL History of partial hysterectomy Hx of tonsillectomy age 4 S/P ORIF (open reduction internal fixation) fracture left knee Family History Father Diabetes Cancer colon Hypertension Social History Smoking Status: Never smoker alcohol intake: current substance use type: denies use current occupational status: retired Travel in the last 8 weeks: None household members: spouse housing: house marital status: number of children: 3 current occupation: retired
== END 2023-05-23 23:59 ==
LOC: SC.PAIN 12:54
PROVIDERS: PCP Internal Medicine; Visit Provider Nurse Practitioner Family
DX: M51.16 Intervertebral disc disorders with radiculopathy, lumbar region (principal); M25.551 Pain in right hip; M25.552 Pain in left hip
CPT/HCPCS: 99212; G0463

== ENCOUNTER 2023-06-14 09:24 | Day surgery (SDC) | payer OTHER, SELFPAY ==
[2023-06-14 09:52] VITALS: BP 103/71; PULSE 71; RESP 18; O2SAT 100; BMI 31.5
[2023-06-14 10:01] VITALS: BP 109/72; PULSE 72; RESP 18
[2023-06-14] MEDS: methylPREDNISolone ACETATE 80MG/ML VIAL 80 MG (10:01)
[2023-06-14 10:02] VITALS: BP 109/72; PULSE 72; RESP 18
[2023-06-14 10:05] VITALS: BP 117/81; PULSE 69; RESP 18; O2SAT 100
--- NOTE | 2023-06-14 10:05 | EXP.PAIN.PRO ---
Procedure Date: 06/14/23 Time: 10:00 Anesthesiologist:: Hakeem Franco CRNA Complications:: None Pre-procedure Diagnosis:: Degenerative disc lumbar spine multilevels. Lumbar radiculopathy Post-procedure Diagnosis:: Same. Indications for Procedure:: Patient is a pleasant 57-year-old female comes our clinic today for repeat lumbar epidural steroid injection at the L4-5 level. Patient reports low back pain as well as bilateral hip and leg radicular symptoms. She rates her pain 7/10. Patient had a recent consultation at [facility] with spine surgery. No surgery recommended. Will continue to treat her conservatively. Procedure Details:: Procedure: Lumbar epidural steroid injection under fluoroscopy Informed consent was obtained and the risks and benefits of the procedure were explained to the patient. The patient was taken to the procedure room and noninvasive monitors placed, including noninvasive blood pressure cuff and pulse oximeter. The back was viewed using C-arm Fluoroscopy and prepped using Chloraprep as a cleansing solution and the L4-L5 interspace was palpated. Skin and subcutaneous tissues were anesthetized using lidocaine 1.5% and a 25-gauge needle. After this, an 18-gauge Touhy epidural needle was placed into the L4-L5 interspace and advanced using fluoroscopic guidance and loss of resistance to air until the epidural space was encountered. After confirmation of needle placement in the epidural space, with dye, a solution containing normal saline, 3 mL and Depo-Medrol 80 mg were incrementally injected into the lumbar epidural space. The patient tolerated the procedure well with no complications. The patient was observed in the Pain Clinic and then discharged home neurologically intact. Plan and Disposition:: Patient was discharged without incident.
== END 2023-06-14 10:05 | disposition home or self-care (01) ==
PROVIDERS: PCP Internal Medicine; Visit Provider Nurse Anesthetist, Certified Registered
DX: M51.16 Intervertebral disc disorders with radiculopathy, lumbar region (principal)
CPT/HCPCS: 62323; J1010

== ENCOUNTER 2023-06-29 11:10 | Outpatient (POV) | payer OTHER, SELFPAY ==
[2023-06-29 11:15] VITALS: BP 111/91; PULSE 77; RESP 16; O2SAT 100; BMI 31.5
--- NOTE | 2023-06-29 11:29 | A.OFFVIS_ITS ---
[facility] Pain Management SOAP Note Subjective:: Patient is a pleasant 57-year-old female who presents today for follow-up of lumbar epidural steroid injection L4-L5 on 06/14/2023. Tonight she rates her pain a 3 out of 10. Patient denies any new trauma or injury. She does state that she has had at least 50% relief following this injection and feels like it still helping. Patient states that she has had much better pain improvement and feels like she is more functional and can do more. She does state that on occasion she will still have some symptoms into her legs however it is still very manageable. Patient does state that it did take about 2 to 3 days for the injection to kick in officially. Patient is currently managed with [facility] from her PCP. Her Angel has been reviewed and is appropriate. Review of Systems: General: No recent weight changes, no fever, no sleep disturbances Respiratory: No cough, no shortness of air, no recurring pulmonary infections Cardiovascular/peripheral vascular: No chest pain, no palpitations, no edema, no shortness of breath Gastrointestinal: No new onset incontinence, normal bowel movements reported Genitourinary: No new onset incontinence Musculoskeletal: Low back pain Psychiatric: [Normal mood/affect] Neurological: [Denies weakness in extremities], [denies balance issues] Objective:: Physical Exam: General: Alert and oriented x3, no acute distress, pleasant and cooperative Lungs: Respirations even and unlabored, symmetrical chest expansion Eyes: PERRL Musculoskeletal: Flexion and extension of lumbar [spine] somewhat guarded secondary to pain, [antalgic gait noted] Neurological: Speech clear, no gross sensory deficit Assessment:: Degenerative disc disease of lumbar spine with lumbar radiculopathy symptoms, bilateral hip pain Plan:: Patient has had significant improvement following her lumbar epidural steroid injection and does not require any additional injection therapy at this time. Patient will return to clinic in 1 month for reevaluation of symptoms and plan of care. Patient has been instructed to contact the clinic with any concerns before the next appointment. Dr. Jones has reviewed this note and agrees with this plan of care. This note was dictated using voice recognition software and make contain errors or omissions. [facility] Disclaimer: The information contained in this section may have been updated after the patient was seen, as this information can be updated by other users. Medical History Current use of nursing home anticoagulation Patient has a history of atrial fibrillation and is following with car diology. She is on long-term anticoagulation and being followed by cardiology. GERD (gastroesophageal reflux disease) Febrile illness, acute Dyspnea on exertion Allergic rhinitis Paroxysmal A-fib Heart failure with reduced ejection fraction Echocardiogram abnormal 12/2019. LV size was mildly dilated, normal wall thickness, LVEF 30-35%, severe global hypokinesis, elevated LVEDP, mild RVE, mild LA/ERNIE, moderate MR, mild TR, dilated IVC, RVSP 47 mmHg H/O cardiovascular stress test 04/2020 LV perfusion normal. LVEF 62% Afib Asthma Patient is currently on is also using leave albuterol MDI as well. Albuterol MDI, as well as fluticasone and the trilogy formulation. Patient does not smoke. Surgical History Hx of tonsillectomy age 4 H/O colonoscopy 2019 WNL S/P ORIF (open reduction internal fixation) fracture left knee History of partial hysterectomy Family History Father Diabetes Cancer colon Hypertension Social History Smoking Status: Never smoker alcohol intake: current alcohol intake frequency: holidays/special occasions only substance use type: denies use current occupational status: other Travel in the last 8 weeks: None household members: spouse housing: house marital status: number of children: 3 current occupation: retired
== END 2023-06-29 23:59 | disposition home or self-care (01) ==
LOC: SC.PAIN 11:10
PROVIDERS: PCP Internal Medicine; Visit Provider Nurse Practitioner Family
DX: M51.16 Intervertebral disc disorders with radiculopathy, lumbar region (principal); M25.551 Pain in right hip; M25.552 Pain in left hip
CPT/HCPCS: 99212; G0463

== ENCOUNTER 2023-07-28 10:57 | Outpatient (POV) | payer OTHER, SELFPAY ==
[2023-07-28 11:12] VITALS: BP 119/86; PULSE 76; RESP 16; O2SAT 97; BMI 31.5
--- NOTE | 2023-07-28 12:10 | A.OFFVIS_ITS ---
[facility] Pain Management SOAP Note Subjective:: Patient is a pleasant 57-year-old female who presents today for 1 month follow- up. Today she rates her pain a 9 out of 10. Patient does state that she is back to her baseline with worsening pain in her low back and legs. Patient did previously have a lumbar epidural steroid injection L4-L5 back at the beginning of June that did provide more than 50% relief and lasted up until about last week. She does state that she went to the zoo and had a lot of walking and her legs just felt like giving out. Patient does state that the pain is a constant aching, throbbing sensation with numbness and tingling into her legs. The pain does interfere with her ability to perform activities of daily living such as cooking and cleaning. Patient is interested in repeat injections. Patient does state that Dr. Larry is doing bursa injections for her next week. Patient is prescribed [place] from Dr. Larry's office. Her Angel has been reviewed and is appropriate. Review of Systems: General: No recent weight changes, no fever, no sleep disturbances Respiratory: No cough, no shortness of air, no recurring pulmonary infections Cardiovascular/peripheral vascular: No chest pain, no palpitations, no edema, no shortness of breath Gastrointestinal: No new onset incontinence, normal bowel movements reported Genitourinary: No new onset incontinence Musculoskeletal: Low back pain, bilateral leg pain Psychiatric: [Normal mood/affect] Neurological: [Denies weakness in extremities], [denies balance issues] Objective:: Physical Exam: General: Alert and oriented x3, no acute distress, pleasant and cooperative Lungs: Respirations even and unlabored, symmetrical chest expansion Eyes: PERRL Musculoskeletal: Flexion and extension of lumbar [spine] somewhat guarded secondary to pain, [antalgic gait noted] point tenderness along bilateral greater trochanteric bursa's Neurological: Speech clear, no gross sensory deficit Assessment:: Degenerative disc disease of lumbar spine with lumbar radiculopathy symptoms, bilateral hip pain, greater trochanteric bursitis Plan:: Patient is experiencing worsening pain in her low back and legs with limited range of motion. Patient did previously have a lumbar epidural at the beginning of June that did provide more than 50% improvement lasting up until the last week or so. I have discussed with the patient that she may benefit from repeat lumbar epidural steroid injection. Risk and benefits were discussed with patient and she would like to proceed forward with this plan of care. Patient has tried and failed conservative therapies including continued at home exercising and stretching between injections. I will also order the patient some Salonpas patches. Patient will be scheduled for an LESI L4-L5 under fluoroscopy. Patient has been instructed to contact the clinic with any concerns before the next appointment. Dr. Jones has reviewed this note and agrees with this plan of care. This note was dictated using voice recognition software and make contain errors or omissions. [facility] Disclaimer: The information contained in this section may have been updated after the patient was seen, as this information can be updated by other users. Medical History Current use of prison anticoagulation Patient has a history of atrial fibrillation and is following with cardiology. She is on long-term anticoagulation and being followed by cardiology. GERD (gastroesophageal reflux disease) Febrile illness, acute Dyspnea on exertion Allergic rhinitis Paroxysmal A-fib Heart failure with reduced ejection fraction Echocardiogram abnormal 12/2019. LV size was mildly dilated, normal wall thickness, LVEF 30-35%, severe global hypokinesis, elevated LVEDP, mild RVE, mild LA/ERNIE, moderate MR , mild TR, dilated IVC, RVSP 47 mmHg H/O cardiovascular stress test 04/2020 LV perfusion normal. LVEF 62% Afib Asthma Patient is currently on is also using leave albuterol MDI as well. Albuterol MDI, as well as fluticasone and the trilogy formulation. Patient does not smoke. Surgical History Hx of tonsillectomy age 4 H/O colonoscopy 2019 WNL S/P ORIF (open reduction internal fixation) fracture left knee History of partial hysterectomy Family History Father Diabetes Cancer colon Hypertension Social History Smoking Status: Never smoker alcohol intake: current alcohol intake frequency: holidays/special occasions only substance use type: denies use current occupational status: other Travel in the last 8 weeks: None household members: spouse housing: house marital status: number of children: 3 current occupation: retired
== END 2023-07-28 23:59 | disposition home or self-care (01) ==
PROVIDERS: PCP Internal Medicine; Visit Provider Nurse Practitioner Family
DX: M51.16 Intervertebral disc disorders with radiculopathy, lumbar region (principal); M25.551 Pain in right hip; M25.552 Pain in left hip; M70.60 Trochanteric bursitis, unspecified hip
CPT/HCPCS: 99212; G0463

== ENCOUNTER 2023-08-04 20:08 | Outpatient (CLI) | payer OTHER, SELFPAY ==
[2023-08-04 20:50] LABS: Alanine Aminotransferase 20 U/L (12-78); Albumin Level 3.6 g/dl (3.5-5.0); Albumin/Globulin Ratio 1.4 (1.1-1.8); Alkaline Phosphatase 75 U/L (38-126); Aspartate Amino Transferase 36 U/L (14-36); Bilirubin,Total 0.4 mg/dl (0.2-1.3); Blood Urea Nitrogen 10 mg/dl (7-17); Calcium 9.3 mg/dl (8.4-10.2); Carbon Dioxide 27 mmol/L (22.0-30.0); Chloride 105 mmol/L (98-107); Chol/HDL Ratio 2.4 (1-3.5); Cholesterol 154 mg/dl (140-200); Estimated Glomerular Filt Rate 103 ml/min (>60); GFR (African American) 124 ML/MIN (>60); Globulin 2.5 g/dL (1.3-3.2); Glucose 96 mg/dl (74-100); HDL Cholesterol 63 mg/dl (40-60); Sodium 140 mmol/L (136-145); Total Protein,Serum 6.1 g/dl (6.3-8.2); Triglycerides 135 mg/dl (30-150); VLDL Cholesterol 27 mg/dL (0-40)
[2023-08-04 21:01] LABS: C-Reactive Protein 6.1 mg/L (0-4); Direct LDL Cholesterol 80.75 mg/dL (100-129)
== END 2023-08-04 23:59 | disposition home or self-care (01) ==
LOC: LAB.DROPOF 20:13
PROVIDERS: PCP Internal Medicine; Visit Provider Internal Medicine
DX: I10 Essential (primary) hypertension (principal); Z79.899 Other long term (current) drug therapy
CPT/HCPCS: 80053; 80061; 86140

== ENCOUNTER 2023-09-13 08:53 | Day surgery (SDC) | payer OTHER, SELFPAY ==
[2023-09-13 09:01] VITALS: BP 108/72; PULSE 74; RESP 18; TEMP 36.4; O2SAT 95; BMI 31.5
[2023-09-13 09:11] VITALS: BP 106/70; PULSE 72; RESP 18; O2SAT 97
[2023-09-13] MEDS: methylPREDNISolone ACETATE 80MG/ML VIAL 80 MG (09:11)
--- NOTE | 2023-09-13 09:12 | EXP.PAIN.PRO ---
Procedure Date: 09/13/23 Time: 09:00 Anesthesiologist:: Hakeem Franco CRNA Complications:: None Pre-procedure Diagnosis:: Degenerative disc lumbar spine multilevels. Lumbar radiculopathy. Lumbar spondylosis. Post-procedure Diagnosis:: Same. Indications for Procedure:: Patient is a very pleasant 57-year-old female comes our clinic today for repeat lumbar epidural steroid injections L4-5 level. Patient reports significant improvement terms of her overall low back pain as well as bilateral hip and leg radicular symptoms with previous injections at the same level. She reports pain is in the low lumbar back area as well as bilateral hip and leg radicular symptoms at times. She rates her pain 7/10. Procedure Details:: Procedure: Lumbar epidural steroid injection under fluoroscopy Informed consent was obtained and the risks and benefits of the procedure were explained to the patient. The patient was taken to the procedure room and noninvasive monitors placed, including noninvasive blood pressure cuff and pulse oximeter. The back was viewed using C-arm Fluoroscopy and prepped using Chloraprep as a cleansing solution and the L4-L5 interspace was palpated. Skin and subcutaneous tissues were anesthetized using lidocaine 1.5% and a 25-gauge needle. After this, an 18-gauge Touhy epidural needle was placed into the L4-L5 interspace and advanced using fluoroscopic guidance and loss of resistance to air until the epidural space was encountered. After confirmation of needle placement in the epidural space, with dye, a solution containing normal saline, 3 mL and Depo-Medrol 80 mg were incrementally injected into the lumbar epidural space. The patient tolerated the procedure well with no complications. The patient was observed in the Pain Clinic and then discharged home neurologically intact. Plan and Disposition:: Patient was discharged without incident.
[2023-09-13 09:18] VITALS: BP 106/70; PULSE 72; RESP 18; O2SAT 97
[2023-09-13 09:19] VITALS: BP 118/68; PULSE 78; RESP 18; O2SAT 96
== END 2023-09-13 09:19 | disposition home or self-care (01) ==
PROVIDERS: PCP Internal Medicine; Visit Provider Nurse Anesthetist, Certified Registered
DX: M54.16 Radiculopathy, lumbar region (principal)
CPT/HCPCS: 62323; J1010

== ENCOUNTER 2023-09-29 15:59 | Emergency (ER) | payer OTHER, SELFPAY ==
[2023-09-29 16:00] VITALS: BP 126/86; PULSE 89; RESP 20; TEMP 36.8; O2SAT 95; BMI 31.2
[2023-09-29 16:03] VITALS: BP 126/86; PULSE 85; O2SAT 95
--- NOTE | 2023-09-29 16:05 | ED_ITS ---
<Statement entered by Merced Bose DO - 09/29/23 17:29> I was consulted by the BROOKE, and we discussed the complexity of the problems being addressed. I approved the treatment and management plan for this patient's care in the emergency department, thus performing a substantive portion of the medical decision making. Merced Bose DO Discharge Plan Disposition Patient Disposition: Home, Self-Care Condition: Good Prescriptions Prescriptions: New doxycycline hyclate 100 mg capsule 100 mg PO BID 10 Days Qty: 20 0RF prednisone 50 mg tablet 50 mg PO DAILY 5 Days Qty: 5 0RF No Action levalbuterol tartrate [Xopenex HFA] 45 mcg/actuation HFA aerosol inhaler 45 mcg inhalation DIRECTED hydrocodone-acetaminophen 10-325 mg tablet 1 tab PO Q6H PRN (Reason: pain) Qty: 120 0RF hydrocodone-acetaminophen 10-325 mg tablet 1 tab PO Q6H PRN (Reason: pain) Qty: 120 0RF semaglutide 0.25 mg or 0.5 mg (2 mg/3 mL) pen injector 0.5 mg SQ WEEKLY Qty: 3 8RF Rx Instructions: 0.25 for 4 weeks and then switch to 0.5 mg for the next 4 weeks multivitamin Tablet 1 tab PO DAILY albuterol sulfate 90 mcg/actuation HFA aerosol inhaler 2 inh inhalation Q6H PRN (Reason: shortness of breath or wheezing) 90 Days Qty: 8.5 1RF Trelegy Ellipta 200-62.5-25 mcg blister with device 1 inh inhalation DAILY 90 Days Qty: 90 3RF Eliquis 5 mg tablet 5 mg PO BID 90 Days Qty: 180 3RF aripiprazole 5 mg tablet 5 mg PO AM Qty: 90 3RF escitalopram oxalate [Lexapro] 20 mg tablet 20 mg PO DAILY Qty: 90 3RF montelukast [Singulair] 10 mg tablet 10 mg PO HS Qty: 90 3RF sotalol [Betapace] 120 mg tablet 120 mg PO BID Qty: 180 3RF lisinopril 20 mg tablet 20 mg PO DAILY Qty: 90 3RF Premarin 0.625 mg tablet See Rx Instructions .ROUTE .COMPLEX Qty: 90 3RF Dose Instruction: TAKE 1 TABLET DAILY FOR HORMONE REPLACEMENT Rx Instructions: TAKE 1 TABLET DAILY FOR HORMONE REPLACEMENT zolpidem 10 mg tablet 10 mg PO HS PRN (Reason: insomnia) Qty: 30 2RF hydrocodone-acetaminophen 10-325 mg tablet 1 tab PO Q6H PRN (Reason: pain) Qty: 120 0RF (DME) FreeStyle Lite Strips Strip See Rx Instructions .ROUTE .MEDSUPPLY Rx Instructions: As directed (DME) blood-glucose meter [FreeStyle Lite Meter] Kit See Rx Instructions .ROUTE .MEDSUPPLY Rx Instructions: As directed Salonpas (capsaicin-menthol) 0.025-1.25 % adhesive patch,medicated 1 patch topical TID 5 Days Qty: 6 0RF Rx Instructions: may leave on area for up to 8 hrs Referrals Follow up/Referrals: Pedro Angeles DO [Primary Care Provider] - See instructions Activity Restrictions/Add. Instructions Additional Instructions/Restrictions: Please take medication till course is complete. Follow-up with your PCP within 48 hours for recheck. Return to ER for any worsening signs or symptoms as needed. Clinical Impressions Clinical Impression: Asthma exacerbation Qualifiers: Asthma severity: mild Asthma persistence: intermittent Qualified Code(s): J 45.21 - Mild intermittent asthma with (acute) exacerbation Instructions Patient Instructions: DI for Asthma -- Adult Print Language Print Language: Yoruba Discharge ED Provider: Merced Bose HPI General Chief Complaint: Upper Respiratory Infection Stated Complaint: cough Time Seen by Provider: 09/29/23 16:02 History of Present Illness HPI narrative: Patient presents for evaluation of a lower respiratory tract infection. Patient has a history of asthma and reports that she has had a cough for 2 to 3 days no subjective fever. However in the last 24 hours she has had wheezing and has attempted all of her home remedies without success and she presented emerged part for evaluation. Patient denies chest pain subjective fever chills hemoptysis hematochezia melena hematemesis nausea vomiting diarrhea. Related Data Home Medications ?Medication ?Instructions ?Recorded ?Confirmed multivitamin 1 tab PO DAILY SUPPLIMENT 06/14/22 09/13/23 blood sugar diagnostic (FreeStyle 07/05/22 09/13/23 Lite Strips) blood-glucose meter (FreeStyle 07/05/22 09/13/23 Lite Meter kit) levalbuterol tartrate 45 45 mcg inhalation DIRECTED 03/24/23 09/13/23 mcg/actuation aerosol inhaler Breathing Problems (Xopenex HFA) Previous Rx's ?Medication ?Instructions ?Recorded albuterol sulfate 90 mcg/actuation 2 inh inhalation Q6H PRN shortness 08/04/22 aerosol inhaler of breath or wheezing 90 days #8.5 grams fluticasone fur. 200 mcg-umeclid 1 inh inhalation DAILY 90 days #90 11/09/22 62.5 mcg-vilant 25 mcg ea inhalat.powder (Trelegy Ellipta) apixaban 5 mg tablet (Eliquis) 5 mg PO BID Blood thinner 90 days 06/09/23 #180 tabs aripiprazole 5 mg tablet 5 mg PO AM MOOD #90 tabs 06/09/23 escitalopram oxalate 20 mg tablet 20 mg PO DAILY MOOD #90 tabs 06/09/23 (Lexapro) lisinopril 20 mg tablet 20 mg PO DAILY BLOOD PRESSURE #90 06/09/23 tabs montelukast 10 mg tablet 10 mg PO HS ALLERGIES #90 tabs 06/09/23 (Singulair) sotalol 120 mg tablet (Betapace) 120 mg PO BID BLOOD PRESSURE #180 06/09/23 tabs capsaicin-menthol 0.025 %-1.25 % 1 patch topical TID 5 days #6 ea 07/28/23 topical patch (Salonpas (capsaicin-menthol)) hydrocodone 10 mg-acetaminophen 1 tab PO Q6H PRN pain #120 tabs 07/28/23 325 mg tablet hydrocodone 10 mg-acetaminophen 1 tab PO Q6H PRN pain #120 tabs 07/28/23 325 mg tablet semaglutide 0.25 mg or 0.5 mg (2 0.5 mg (0.736 mL) SQ WEEKLY #3 mL 07/28/23 mg/3 mL) subcutaneous pen injector conjugated estrogens 0.625 mg See Rx Instructions .Route 08/31/23 tablet (Premarin) .COMPLEX #90 tabs zolpidem 10 mg tablet 10 mg PO HS PRN insomnia #30 tabs 09/16/23 hydrocodone 10 mg-acetaminophen 1 tab PO Q6H PRN pain #120 tabs 09/22/23 325 mg tablet doxycycline hyclate 100 mg capsule 100 mg PO BID 10 days #20 caps 09/29/23 prednisone 50 mg tablet 50 mg PO DAILY 5 days #5 tabs 09/29/23 Allergies Allergy/AdvReac Type Severity Reaction Status Date / Time ibuprofen Allergy Severe Anaphylaxis Verified 09/13/23 09:02 sulfamethoxazole Allergy Severe Swelling Verified 09/13/23 09:02 [From Bactrim] of Lip/Tongue/Throat trimethoprim [From Bactrim] Allergy Severe Swelling Verified 09/13/23 09:02 of Lip/Tongue/Throat bacitracin Allergy Intermediate Rash Verified 09/13/23 09:02 [From Neosporin ([id number])] metformin Allergy Intermediate Diarrhea Verified 09/13/23 09:02 neomycin Allergy Intermediate Rash Verified 09/13/23 09:02 [From Neosporin ([id number])] polymyxin B Allergy Intermediate Rash Verified 09/13/23 09:02 [From Neosporin ([id number])] [facility] Disclaimer: The information contained in this section may have been updated after the patient was seen, as this information can be updated by other users. Medical History Current use of jail anticoagulation Patient has a history of atrial fibrillation and is following with cardiology. She is on long-term anticoagulation and being followed by cardiology. GERD (gastroesophageal reflux disease) Febrile illness, acute Dyspnea on exertion Allergic rhinitis Paroxysmal A-fib Heart failure with reduced ejection fraction Echocardiogram abnormal 12/2019. LV size was mildly dilated, normal wall thickness, LVEF 30-35%, severe global hypokinesis, elevated LVEDP, mild RVE, mild LA/ERNIE, moderate MR, mild TR, dilated IVC, RVSP 47 mmHg H/O cardiovascular stress test 04/2020 LV perfusion normal. LVEF 62% Afib Asthma Patient is currently on is also using leave albuterol MDI as well. Albuterol MDI, as well as fluticasone and the trilogy formulation. Patient does not smoke. Surgical History Hx of tonsillectomy age 4 H/O colonoscopy 2019 WNL S/P ORIF (open reduction internal fixation) fracture left knee History of partial hysterectomy Family History Father Diabetes Cancer colon Hypertension Social History Smoking Status: Never smoker alcohol intake: current alcohol intake frequency: holidays/special occasions only substance use type: denies use current occupational status: other Travel in the last 8 weeks: None household members: spouse housing: house marital status: number of children: 3 current occupation: retired ROS Obtained: Yes Systems reviewed as appropriate & no additional complaints except as documented Physical Exam General General appearance: alert and in no apparent distress Chest Chest inspection: Present normal inspection and symmetric chest wall rise; Absent tenderness Respiratory Respiratory exam: Present wheezes (And rhonchi right greater than left); Absent respiratory distress or accessory muscle use Cardiovascular Cardiovascular exam: Present regular rate and normal rhythm Neurological Exam Neurological exam: Present alert and oriented X3 HEART Score HEART Score HEART Score assessment performed?: No Critical Care Critical Care Time Critical Care Time: No Medical Decision Making Medical Records Medical records reviewed: Yes I reviewed the patient's medical records. Angel Inquiry Pt receiving controlled substance: No Vital Signs Vital Signs: 09/29/23 16:00 09/29/23 16:03 09/29/23 17:00 Temperature 98.3 F Temperature Source Oral Pulse Rate 85 74 Pulse Rate [Right] 89 Respiratory Rate 20 Blood Pressure 126/86 127/74 Blood Pressure [Right Arm] 126/86 Blood Pressure Mean 97 Blood Pressure Mean [Right Arm] 99 Blood Pressure Source Blood Pressure Position 02 Sat by Pulse Oximetry 95 95 100 Oxygen Delivery Method Room Air Room Air Room Air 09/29/23 17:18 Temperature 98.2 F Temperature Source Oral Pulse Rate 78 Pulse Rate [Right] Respiratory Rate 18 Blood Pressure 127/74 Blood Pressure [Right Arm] Blood Pressure Mean Blood Pressure Mean [Right Arm] Blood Pressure Source Automatic Cuff Blood Pressure Position Sitting 02 Sat by Pulse Oximetry Oxygen Delivery Method Room Air Lab Data Lab results reviewed: Yes I reviewed the patient's lab results. Labs: Lab Results 09/29/23 16:05: SARS-CoV-2 (PCR) Not detected, Influenza A Untype (PCR) Not detected, Influenza Type B (PCR) Not detected 09/29/23 16:27: WBC 9.2, RBC 4.09 L, Hgb 13.8, Hct 41.8, MCV 102.0 H, MCH 33.8 H , MCHC 33.1, RDW 13.6, Plt Count 323, MPV 8.8, Neut % (Auto) 56.7, Lymph % (Auto) 30.1, King % (Auto) 6.0, Eos % (Auto) 6.0, Baso % (Auto) 1.2, Neut # (Auto) 5.2, Lymph # (Auto) 2.8, King # (Auto) 0.6, Eos # (Auto) 0.6 H, Baso # (Auto) 0.1, Sodium 137, Potassium 3.9, Chloride 107, Carbon Dioxide 23, Anion Gap 10.9, BUN 12, Creatinine 0.90, Estimated Creat Clear 105, Estimated GFR 64, Est GFR ( Amer) 78, Glucose 101 H, Calcium 9.3, Magnesium 1.5 L, Total Bilirubin 0.5, AST 44 H, ALT 26, Alkaline Phosphatase 67, NT-Pro-B Natriuret Pep 172 H, Total Protein 7.2, Albumin 4.1, Globulin 3.1, Albumin/Globulin Ratio 1.3, Procalcitonin 0.045 09/29/23 16:29: VBG pH 7.46 H, VBG pCO2 34.0 L, VBG pO2 56.6 H, VBG HCO3 23.8, VBG Total CO2 24.8, VBG O2 Saturation 90.7 H, VBG Base Excess 0.0, VBG Lactic Acid 2.1 H 09/29/23 16:27 09/29/23 16:27 Response Orders (Tests/Meds): ED MEDICATIONS Discontinued Medications Generic Name Dose Route Start Last Admin Trade Name Gera PRN Reason Stop Dose Admin Acetaminophen 1,000 mg 09/29/23 16:07 09/29/23 16:35 Acetaminophen 1,000mg/100ml Vial IV 09/29/23 16:08 1,000 mg ONCE ONE Administration Albuterol/Ipratropium 9 ml 09/29/23 16:07 09/29/23 16:35 Ipratropium/Albuterol 3 Ml Neb IH 09/29/23 16:08 9 ml ONCE ONE Administration Doxycycline Hyclate 100 mg 09/29/23 17:04 09/29/23 17:16 Doxycycline Hycl 100 Mg Tablet PO 09/29/23 17:05 100 mg ONCE ONE Administration Magnesium Sulfate 2 gm in 50 mls @ 50 mls/hr 09/29/23 16:09 09/29/23 16:35 Magnesium Sulfate 2gm/50ml Premix IV 09/29/23 17:08 50 mls/hr ONCE ONE Administration Methylprednisolone Sodium Succinate 125 mg 09/29/23 16:07 09/29/23 16:34 Methylprednisolone Sod Succ 125mg Vial IV 09/29/23 16:08 125 mg ONCE ONE Administration ORDERS Category Date Time Status Chest XR 2 view (NOT portable) [XR chest 2V] Stat Exams 09/29/23 16:08 Completed BNP [NT Pro Brain Natriuretic Pep.] Stat Lab 09/29/23 16:27 Completed CBC w/Auto Diff [Complete Blood Count Auto Diff] Stat Lab 09/29/23 16:27 Completed CMP [Comprehensive Metabolic Panel] Stat Lab 09/29/23 16:27 Completed Magnesium Stat Lab 09/29/23 16:27 Completed Procalcitonin Stat Lab 09/29/23 16:27 Completed Rapid PCR Covid and Flu A/B Stat Lab 09/29/23 16:05 Completed VBG [Venous Blood Gas] Stat RT 09/29/23 16:29 Completed MDM Narrative Medical Decision Narrative: In summary patient is a 58-year-old female who presents to the emergency department for evaluation of cough wheezing shortness of breath. Patient is hemodynamically stable upon arrival, afebrile. Physical exam is remarkable for coarse bronchial cough, breath sounds reveal bilateral end expiratory wheeze and rhonchi right greater than left.. Differential diagnosis includes asthma exacerbation versus viral bacterial upper respiratory tract infection etc. Initial workup will be conducted with hematologic labs plain film chest x-ray respiratory swab. Initial interventions include Solu-Medrol, DuoNeb Tylenol Toradol. Initial workup reviewed by me and her hematologic labs are nonactionable respiratory swabs for COVID and flu are negative and my informal interpretation of her plain film chest x-ray shows no acute processes.. Upon repeat evaluation had significant improvement after initial intervention of magnesium DuoNeb and Solu-Medrol. Given this patient is appropriate for discharge with a prescription for doxycycline and steroids with close follow-up with her PCP.
--- NOTE | 2023-09-29 16:08 | XR_ITS ---
FINAL REPORT TECHNIQUE: Two views CLINICAL HISTORY: Asthma exacerbation COMPARISON: 08/12/2022 FINDINGS: No acute pulmonary density is present. Mediastinal contour is normal. Heart size is stable. IMPRESSION: Stable chest exam without acute disease Reviewed, Interpreted and Dictated by Gloria Rogers MD Transcribed by Jessica Cerda Authenticated and [facility]
[2023-09-29 16:12] LABS: Coronavirus 19, PCR Not Detected (NotDetected); Influenza A, PCR Not Detected (NotDetected); Influenza B, PCR Not Detected (NotDetected)
--- NOTE | 2023-09-29 16:27 | PC.NURSE ---
PT TO XR
--- NOTE | 2023-09-29 16:33 | PC.NURSE ---
PT RETURNED FROM XR
[2023-09-29] MEDS: METHYLPREDNISOLONE SOD SUCC 125MG VIAL 125 MG IV (16:34)
[2023-09-29] MEDS: ACETAMINOPHEN 1,000MG/100ML VIAL 1000 MG IV (16:35)
[2023-09-29] MEDS: MAGNESIUM SULFATE IN WATER 2 GM/50 ML PIGGYBACK IV (16:35)
[2023-09-29] MEDS: IPRATROPIUM/ALBUTEROL 3 ML NEB 9 ML IH (16:35)
[2023-09-29 16:38] LABS: VBG HCO3 23.8 mmol/L (23-30); VBG Oxygen Saturation 90.7 % (50-70); VBG PH 7.46 mmol/L (7.31-7.41); VBG PO2 56.6 mmol/L (28-40); VBG Total CO2 24.8 mmol/L (23-27)
[2023-09-29 16:39] LABS: Lactate Venous 2.1 mmol/L (0.4-2.0)
[2023-09-29 16:42] LABS: Basophils # 0.1 K/mm3 (0-0.2); Basophils % 1.2 % (0.1-2.0); Eosinophils # 0.6 K/mm3 (0.0-0.4); Hematocrit 41.8 % (37.0-47.0); Hemoglobin 13.8 g/dL (12.2-16.2); Lymphocytes # 2.8 K/mm3 (0.7-4.5); Lymphocytes % 30.1 % (10-50); Mean Corpuscular HGB Conc 33.1 g/dL (31.8-35.4); Mean Corpuscular Hemoglobin 33.8 pg (27.0-31.2); Mean Platelet Volume 8.8 fl (7.4-10.4); Monocytes # 0.6 K/mm3 (0.1-1.0); Neutrophils # 5.2 K/mm3 (1.8-7.8); Neutrophils % 56.7 % (37.0-80.0); Platelet Count 323 K/mm3 (142-424); Red Blood Count 4.09 M/mm3 (4.20-5.40); Red Cell Distribution Width 13.6 % (11.5-17.5); White Blood Count 9.2 K/mm3 (4.8-10.8)
[2023-09-29 16:48] LABS: Alanine Aminotransferase 26 U/L (12-78); Albumin Level 4.1 g/dl (3.5-5.0); Albumin/Globulin Ratio 1.3 (1.1-1.8); Alkaline Phosphatase 67 U/L (38-126); Anion Gap 10.9 mEq/L (5-15); Aspartate Amino Transferase 44 U/L (14-36); Bilirubin,Total 0.5 mg/dl (0.2-1.3); Blood Urea Nitrogen 12 mg/dl (7-17); Calcium 9.3 mg/dl (8.4-10.2); Carbon Dioxide 23 mmol/L (22.0-30.0); Chloride 107 mmol/L (98-107); Creatinine Clearance Estimated 105 mL/min (50-200); Estimated Glomerular Filt Rate 64 ml/min (>60); GFR (African American) 78 ML/MIN (>60); Globulin 3.1 g/dL (1.3-3.2); Glucose 101 mg/dl (74-100); Magnesium 1.5 mg/dl (1.6-2.3); Potassium 3.9 mmoL/L (3.5-5.1); Sodium 137 mmol/L (136-145); Total Protein,Serum 7.2 g/dl (6.3-8.2)
[2023-09-29 16:58] LABS: NT Pro Brain Natriuretic Pep. 172 pg/mL (0-125)
[2023-09-29 17:00] VITALS: BP 127/74; PULSE 74; O2SAT 100
[2023-09-29 17:04] LABS: Procalcitonin 0.045 ng/mL (0.0-2.0)
[2023-09-29] MEDS: DOXYCYCLINE HYCL 100 MG TABLET PO (17:16)
[2023-09-29 17:18] VITALS: BP 127/74; PULSE 78; RESP 18; TEMP 36.8
[2023-09-29 20:39] LABS: Reflex Lactic Add Lactic Reflex
== END 2023-09-29 17:20 | disposition home or self-care (01) ==
PROVIDERS: Physician Assistant; Emergency Provider Emergency Medicine; PCP Internal Medicine
DX: J45.21 Mild intermittent asthma with (acute) exacerbation (principal); R05.9 Cough, unspecified; I48.0 Paroxysmal atrial fibrillation; K21.9 Gastro-esophageal reflux disease without esophagitis; Z79.01 Long term (current) use of anticoagulants; E83.42 Hypomagnesemia
CPT/HCPCS: 71046; 80053; 82803; 83735; 83880; 84145; 85025; 87636; 96365; 96375; 99284; J0131; J2919; J3475; J7620

== ENCOUNTER 2023-10-11 14:27 | Outpatient (CLI) | payer OTHER, SELFPAY ==
--- NOTE | 2023-10-11 14:29 | XR_ITS ---
FINAL REPORT CLINICAL HISTORY: SOB COMPARISON: 09/29/2023 FINDINGS: TWO-VIEW CHEST The heart size is normal. The mediastinum is normal. There are worsening bibasilar opacities, may represent atelectasis or pneumonia. There is no pneumothorax. IMPRESSION: Worsening atelectasis versus pneumonia. Reviewed, Interpreted and Dictated by Will Villatoro III, MD Transcribed by Jessica Cerda Authenticated and [facility]
== END 2023-10-11 23:59 | disposition home or self-care (01) ==
LOC: RAD 14:27
PROVIDERS: PCP Internal Medicine; Visit Provider Internal Medicine Pulmonary Disease
DX: R06.02 Shortness of breath (principal)
CPT/HCPCS: 71046

== ENCOUNTER 2023-10-19 12:58 | Outpatient (POV) | payer OTHER, SELFPAY ==
[2023-10-19 13:04] VITALS: BP 106/71; PULSE 73; RESP 16; O2SAT 94; BMI 31.1
--- NOTE | 2023-10-19 13:22 | EXP.PAIN.SOA ---
[facility] Disclaimer: The information contained in this section may have been updated after the patient was seen, as this information can be updated by other users. Medical History (Updated 10/19/23 @ 13:24 by Merced Cox APRN) Uncontrolled asthma Current use of [facility] anticoagulation GERD (gastroesophageal reflux disease) Febrile illness, acute Dyspnea on exertion Allergic rhinitis Paroxysmal A-fib Heart failure with reduced ejection fraction Echocardiogram abnormal H/O cardiovascular stress test Afib Asthma Surgical History Hx of tonsillectomy H/O colonoscopy S/P ORIF (open reduction internal fixation) fracture History of partial hysterectomy Family History Father Diabetes Cancer colon Hypertension Social History Smoking Status: Never smoker alcohol intake: current alcohol intake frequency: holidays/special occasions only substance use type: denies use current occupational status: unemployed Travel in the last 8 weeks: None household members: spouse housing: house marital status: number of children: 3 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 Today she rates her pain a 7 out of 10. Patient does states she had at least 60% improvement following this injection. She states that she was able to move around easier with overall decreased pain. Patient states that she had actually been down with asthma for the entire months and that during that time she really did not notice significant issues with her overall low back. Patient does state that she is starting to go back towards her baseline. Patient states that she is definitely interested in additional injections since this did work so well. Patient is prescribed [place] from her PCP. Her Angel has been reviewed and is appropriate. Review of Systems: General: No recent weight changes, no fever, no sleep disturbances Respiratory: No cough, no shortness of air, no recurring pulmonary infections Cardiovascular/peripheral vascular: No chest pain, no palpitations, no edema, no shortness of breath Gastrointestinal: No new onset incontinence, normal bowel movements reported Genitourinary: No new onset incontinence Musculoskeletal: Low back pain Psychiatric: [Normal mood/affect] Neurological: [Denies weakness in extremities], [denies balance issues] Pain at rest (0-10 scale): 7 Objective Objective:: Physical Exam: General: Alert and oriented x3, no acute distress, pleasant and cooperative Lungs: Respirations even and unlabored, symmetrical chest expansion Eyes: PERRL Musculoskeletal: Flexion and extension of lumbar [spine] somewhat guarded secondary to pain, [antalgic gait noted] Neurological: Speech clear, no gross sensory deficit Has patient had previous pain injection?: Yes Percent improvement in pain since last injection: 60% Conservative treatment options previously tried: Home exercise plan Length of treatment: Longer than 6 weeks Meds Home Medications and Allergies Home Medications ?Medication ?Instructions ?Recorded ?Confirmed ?Type multivitamin 1 tab PO DAILY SUPPLIMENT 06/14/22 10/19/23 [facility]23 History Lite Strips) [facility] 10/19/23 History Lite Meter kit) albuterol sulfate 90 mcg/actuation 2 inh inhalation Q6H PRN shortness 08/04/22 10/19/23 Rx aerosol inhaler of breath or wheezing 90 days #8.5 grams fluticasone fur. 200 mcg-umeclid 1 inh inhalation DAILY 90 days #90 11/09/22 10/19/23 Rx 62.5 mcg-vilant 25 mcg ea inhalat.powder (Trelegy Ellipta) levalbuterol tartrate 45 45 mcg inhalation DIRECTED 03/24/23 10/19/23 History mcg/actuation aerosol inhaler Breathing Problems (Xopenex HFA) apixaban 5 mg tablet (Eliquis) 5 mg PO BID Blood thinner 90 days 06/09/23 10/19/23 Rx #180 tabs aripiprazole 5 mg tablet 5 mg PO AM MOOD #90 tabs 06/09/23 10/19/23 Rx escitalopram oxalate 20 mg tablet 20 mg PO DAILY MOOD #90 tabs 06/09/23 10/19/23 Rx (Lexapro) lisinopril 20 mg tablet 20 mg PO DAILY BLOOD PRESSURE #90 06/09/23 10/19/23 Rx tabs montelukast 10 mg tablet 10 mg PO HS ALLERGIES #90 tabs 06/09/23 10/19/23 Rx (Singulair) sotalol 120 mg tablet (Betapace) 120 mg PO BID BLOOD PRESSURE #180 06/09/23 10/19/23 Rx tabs capsaicin-menthol 0.025 %-1.25 % 1 patch topical TID 5 days #6 ea 07/28/23 10/19/23 Rx topical patch (Salonpas (capsaicin-menthol)) hydrocodone 10 mg-acetaminophen 1 tab PO Q6H PRN pain #120 tabs 07/28/23 10/19/23 Rx 325 mg tablet hydrocodone 10 mg-acetaminophen 1 tab PO Q6H PRN pain #120 tabs 07/28/23 10/19/23 Rx 325 mg tablet semaglutide 0.25 mg or 0.5 mg (2 0.5 mg (0.736 mL) SQ WEEKLY #3 mL 07/28/23 10/19/23 Rx mg/3 mL) subcutaneous pen injector conjugated estrogens 0.625 mg See Rx Instructions .Route 08/31/23 10/19/23 Rx tablet (Premarin) .COMPLEX #90 tabs zolpidem 10 mg tablet 10 mg PO HS PRN insomnia #30 tabs 09/16/23 10/19/23 Rx hydrocodone 10 mg-acetaminophen 1 tab PO Q6H PRN pain #120 tabs 09/22/23 10/19/23 Rx 325 mg tablet doxycycline hyclate 100 mg capsule 100 mg PO BID 10 days #20 caps 09/29/23 10/19/23 Rx prednisone 50 mg tablet 50 mg PO DAILY 5 days #5 tabs 09/29/23 10/19/23 Rx cefdinir 300 mg capsule 300 mg PO BID 5 days #10 caps 10/03/23 10/19/23 Rx prednisone 20 mg tablet 40 mg (2 x 20 mg) PO DAILY 5 days 10/03/23 10/19/23 Rx #13 tabs prednisone 20 mg tablet See Rx Instructions .Route 10/11/23 10/19/23 Rx .COMPLEX #50 tabs ipratropium 0.5 mg-albuterol 3 mg 3 ml inhalation Q6H PRN shortness 10/13/23 10/19/23 Rx (2.5 mg base)/3 mL nebulization of breath or wheezing #90 mL soln New Prescriptions to Start Prescriptions: Allergies Allergy/AdvReac Type Severity Reaction Status Date / Time ibuprofen Allergy Severe Anaphylaxis Verified 10/11/23 13:59 sulfamethoxazole Allergy Severe Swelling Verified 10/11/23 13:59 [From Bactrim] of Lip/Tongue/Throat trimethoprim [From Bactrim] Allergy Severe Swelling Verified 10/11/23 13:59 of Lip/Tongue/Throat bacitracin Allergy Intermediate Rash Verified 10/11/23 13:59 [From Neosporin ([id number])] metformin Allergy Intermediate Diarrhea Verified 10/11/23 13:59 neomycin Allergy Intermediate Rash Verified 10/11/23 13:59 [From Neosporin ([id number])] polymyxin B Allergy Intermediate Rash Verified 10/11/23 13:59 [From Neosporin ([id number])] Assessment and Plan *Assessment and plan (1) Lumbar radiculopathy: Problem Comment: Patient is following with Dr. Jones and will have an epidural steroid injection today. The first 1 did help for about a month. Status: Acute Category: Medical Code(s): M54.16 - Radiculopathy, lumbar region (2) DDD (degenerative disc disease): Status: Acute Qualifiers: Spinal region: lumbar Qualified Code(s): M51.36 - Other intervertebral disc degeneration, lumbar region Category: Medical Plan Patient did have significant relief following her lumbar epidural. We will see how she does over the next several weeks. Patient will return to clinic in 1 month for reevaluation of symptoms and plan of care. Patient has been instructed to contact the clinic with any concerns before the next appointment. Dr. Jones has reviewed this note and agrees with this plan of care. This note was dictated using voice recognition software and make contain errors or omissions. All injections are used with Lidocaine or Bupivacaine and Depo Medrol.
== END 2023-10-19 23:59 | disposition home or self-care (01) ==
LOC: SC.PAIN 12:58
PROVIDERS: Visit Provider Nurse Practitioner Family
DX: M51.16 Intervertebral disc disorders with radiculopathy, lumbar region (principal); Z79.899 Other long term (current) drug therapy
CPT/HCPCS: 99212; G0463

== ENCOUNTER 2023-10-20 10:12 | Outpatient (CLI) | payer OTHER, SELFPAY ==
[2023-10-20 19:24] LABS: Magnesium 2.1 mg/dl (1.6-2.3)
== END 2023-10-20 23:59 | disposition home or self-care (01) ==
LOC: LAB.DROPOF 10-22 18:51
PROVIDERS: PCP Internal Medicine; Visit Provider Internal Medicine
DX: E61.2 Magnesium deficiency (principal)
CPT/HCPCS: 83735

== ENCOUNTER 2023-12-26 11:29 | Outpatient (POV) | payer OTHER, SELFPAY ==
--- NOTE | 2023-12-26 11:41 | EXP.PAIN.SOA ---
[facility] Disclaimer: The information contained in this section may have been updated after the patient was seen, as this information can be updated by other users. Medical History Eosinophilic asthma Uncontrolled asthma Current use of [facility] anticoagulation GERD (gastroesophageal reflux disease) Febrile illness, acute Dyspnea on exertion Allergic rhinitis Paroxysmal A-fib Heart failure with reduced ejection fraction Echocardiogram abnormal 12/2019. LV size was mildly dilated, normal wall thickness, LVEF 30-35%, severe global hypokinesis, elevated LVEDP, mild RVE, mild LA/ERNIE, moderate MR, mild TR, dilated IVC, RVSP 47 mmHg H/O cardiovascular stress test 04/2020 LV perfusion normal. 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 She rates her pain today a 10 out of 10. Patient denies any new trauma or injury. She does state that her pain has came back full force and describes it as an aching, throbbing sensation that radiates from her low back down into her bilateral lower extremities. Patient does states she has numbness and tingling into her legs and it does interfere with her ability perform activities of daily living such as cooking and cleaning. Patient did previously have a lumbar epidural steroid injection L4-L5 on September 13, 2023 that did provide 60% improvement in last for a couple of months. She does states she would like to see about repeating this injection since she did have such significant improved function. Patient is prescribed [place] from her PCP. Her Angel has been reviewed and is appropriate. Review of Systems: General: No recent weight changes, no fever, no sleep disturbances Respiratory: No cough, no shortness of air, no recurring pulmonary infections Cardiovascular/peripheral vascular: No chest pain, no palpitations, no edema, no shortness of breath Gastrointestinal: No new onset incontinence, normal bowel movements reported Genitourinary: No new onset incontinence Musculoskeletal: Low back pain, bilateral leg pain Psychiatric: [Normal mood/affect] Neurological: [Denies weakness in extremities], [denies balance issues] Pain at rest (0-10 scale): 10 Objective Objective:: Physical Exam: General: Alert and oriented x3, no acute distress, pleasant and cooperative Lungs: Respirations even and unlabored, symmetrical chest expansion Eyes: PERRL Musculoskeletal: Flexion and extension of lumbar [spine] somewhat guarded secondary to pain, [antalgic gait noted] positive leg raise Neurological: Speech clear, no gross sensory deficit Has patient had previous pain injection?: No Conservative treatment options previously tried: Home exercise plan Length of treatment: Longer than 12 weeks Meds Home Medications and Allergies Home Medications ?Medication ?Instructions ?Recorded ?Confirmed ?Type multivitamin 1 tab PO DAILY SUPPLIMENT 06/14/22 11/28/23 [facility]/28/23 History Lite Strips) [facility] 11/28/23 History Lite Meter kit) albuterol sulfate 90 mcg/actuation 2 inh inhalation Q6H PRN shortness 08/04/22 11/28/23 Rx aerosol inhaler of breath or wheezing 90 days #8.5 grams fluticasone fur. 200 mcg-umeclid 1 inh inhalation DAILY 90 days #90 11/09/22 11/28/23 Rx 62.5 mcg-vilant 25 mcg ea inhalat.powder (Trelegy Ellipta) levalbuterol tartrate 45 45 mcg inhalation DIRECTED 03/24/23 11/28/23 History mcg/actuation aerosol inhaler Breathing Problems (Xopenex HFA) apixaban 5 mg tablet (Eliquis) 5 mg PO BID Blood thinner 90 days 06/09/23 11/28/23 Rx #180 tabs aripiprazole 5 mg tablet 5 mg PO AM MOOD #90 tabs 06/09/23 11/28/23 Rx escitalopram oxalate 20 mg tablet 20 mg PO DAILY MOOD #90 tabs 06/09/23 11/28/23 Rx (Lexapro) lisinopril 20 mg tablet 20 mg PO DAILY BLOOD PRESSURE #90 06/09/23 11/28/23 Rx tabs montelukast 10 mg tablet 10 mg PO HS ALLERGIES #90 tabs 06/09/23 11/28/23 Rx (Singulair) sotalol 120 mg tablet (Betapace) 120 mg PO BID BLOOD PRESSURE #180 06/09/23 11/28/23 Rx tabs capsaicin-menthol 0.025 %-1.25 % 1 patch topical TID 5 days #6 ea 07/28/23 11/28/23 Rx topical patch (Salonpas (capsaicin-menthol)) semaglutide 0.25 mg or 0.5 mg (2 0.5 mg (0.736 mL) SQ WEEKLY #3 mL 07/28/23 11/28/23 Rx mg/3 mL) subcutaneous pen injector conjugated estrogens 0.625 mg See Rx Instructions .Route 08/31/23 11/28/23 Rx tablet (Premarin) .COMPLEX #90 tabs hydrocodone 10 mg-acetaminophen 1 tab PO Q6H PRN pain #120 tabs 09/22/23 11/28/23 Rx 325 mg tablet ipratropium 0.5 mg-albuterol 3 mg 3 ml inhalation Q6H PRN shortness 10/13/23 11/28/23 Rx (2.5 mg base)/3 mL nebulization of breath or wheezing #90 mL soln hydrocodone 10 mg-acetaminophen 1 tab PO Q6H PRN pain #120 tabs 10/20/23 11/28/23 Rx 325 mg tablet semaglutide 1 mg/dose (4 mg/3 mL) 1 mg (0.75 mL) SQ WEEKLY #3 mL 10/20/23 11/28/23 Rx subcutaneous pen injector benralizumab 30 mg/mL subcutaneous 30 mg SQ Q4W #1 mL 11/01/23 11/28/23 Rx auto-injector (Fasenra Pen) hydrocodone 10 mg-acetaminophen 1 tab PO Q6H PRN pain #120 tabs 12/14/23 Rx 325 mg tablet zolpidem 10 mg tablet 10 mg PO HS PRN insomnia #30 tabs 12/14/23 Rx New Prescriptions to Start Prescriptions: Allergies Allergy/AdvReac Type Severity Reaction Status Date / Time ibuprofen Allergy Severe Anaphylaxis Verified 11/28/23 13:08 sulfamethoxazole Allergy Severe Swelling Verified 11/28/23 13:08 [From Bactrim] of Lip/Tongue/Throat trimethoprim [From Bactrim] Allergy Severe Swelling Verified 11/28/23 13:08 of Lip/Tongue/Throat bacitracin Allergy Intermediate Rash Verified 11/28/23 13:08 [From Neosporin ([id number])] metformin Allergy Intermediate Diarrhea Verified 11/28/23 13:08 neomycin Allergy Intermediate Rash Verified 11/28/23 13:08 [From Neosporin ([id number])] polymyxin B Allergy Intermediate Rash Verified 11/28/23 13:08 [From Neosporin ([id number])] Assessment and Plan *Assessment and plan (1) Lumbar radiculopathy: Problem Comment: Patient is following with Dr. Jones and will have an epidural steroid injection today. The first 1 did help for about a month. Status: Acute Category: Medical Code(s): M54.16 - Radiculopathy, lumbar region Plan Patient is experiencing worsening pain throughout her low back with radiating numbness and tingling into her lower extremities. Patient did have limited range of motion of her lumbar spine with a positive leg raise. I did discuss the risk and benefits of repeat lumbar epidural steroid injection. Patient does states she would like to proceed forward with this plan of care. Patient is on blood thinner that is written by Dr. Larry's office for A-fib. We will contact this office and confirm she can stop this medication prior to her injection. Patient has tried and failed conservative therapy including continued at home stretching exercises for longer than 12 weeks. Patient will be scheduled for an LESI L4-L5 under fluoroscopy. Patient has been instructed to contact the clinic with any concerns before the next appointment. Dr. Jones has reviewed this note and agrees with this plan of care. This note was dictated using voice recognition software and make contain errors or omissions. All injections are used with Lidocaine or Bupivacaine and Depo Medrol.
[2023-12-26 11:52] VITALS: BP 108/68; PULSE 102; RESP 18; O2SAT 94; BMI 30.4
== END 2023-12-26 23:59 | disposition home or self-care (01) ==
LOC: SC.PAIN 11:30
PROVIDERS: PCP Internal Medicine; Visit Provider Nurse Practitioner Family
DX: M54.16 Radiculopathy, lumbar region (principal); Z73.89 Other problems related to life management difficulty; Z79.899 Other long term (current) drug therapy
CPT/HCPCS: 99212; G0463

== ENCOUNTER 2024-01-06 12:43 | Day surgery (SDC) | payer OTHER, SELFPAY ==
[2024-01-06 13:16] VITALS: BP 123/81; PULSE 62; RESP 16; TEMP 36.4; O2SAT 97; BMI 30.4
[2024-01-06] MEDS: methylPREDNISolone ACETATE 80MG/ML VIAL 80 MG (13:28)
[2024-01-06 13:29] VITALS: BP 122/80; PULSE 71; RESP 18; O2SAT 98
--- NOTE | 2024-01-06 13:34 | EXP.PAIN.PRO ---
Procedure Date: 01/06/24 Time: 13:15 Anesthesiologist:: Hakeem Franco CRNA Complications:: None Pre-procedure Diagnosis:: Generative disc lumbar spine multilevels. Lumbar radiculopathy. Post-procedure Diagnosis:: Same. Indications for Procedure:: Patient is a very pleasant 58-year-old female who comes our clinic today for lumbar epidural steroid injection. Patient describes low lumbar back pain as constant, dull, aching. Patient also reports bilateral hip and leg radicular symptoms at times. She has responded very well to lumbar epidural steroid injections in the past. She rates her pain today 6/10. Procedure Details:: Procedure: Lumbar epidural steroid injection under fluoroscopy Informed consent was obtained and the risks and benefits of the procedure were explained to the patient. The patient was taken to the procedure room and noninvasive monitors placed, including noninvasive blood pressure cuff and pulse oximeter. The back was viewed using C-arm Fluoroscopy and prepped using Chloraprep as a cleansing solution and the L4-L5 interspace was palpated. Skin and subcutaneous tissues were anesthetized using lidocaine 1.5% and a 25-gauge needle. After this, an 18-gauge Touhy epidural needle was placed into the L4-L5 interspace and advanced using fluoroscopic guidance and loss of resistance to air until the epidural space was encountered. After confirmation of needle placement in the epidural space, with dye, a solution containing normal saline, 3 mL and Depo-Medrol 80 mg were incrementally injected into the lumbar epidural space. The patient tolerated the procedure well with no complications. The patient was observed in the Pain Clinic and then discharged home neurologically intact. Plan and Disposition:: Patient was discharged without incident.
[2024-01-06 13:50] VITALS: BP 117/81; PULSE 76; RESP 16; O2SAT 100
== END 2024-01-06 13:50 | disposition home or self-care (01) ==
PROVIDERS: PCP Internal Medicine; Visit Provider Nurse Anesthetist, Certified Registered
DX: M51.16 Intervertebral disc disorders with radiculopathy, lumbar region (principal)
CPT/HCPCS: 62323; J1010

== ENCOUNTER 2024-04-16 10:58 | Outpatient (POV) | payer OTHER, SELFPAY ==
[2024-04-16 11:12] VITALS: BP 110/69; PULSE 71; RESP 14; O2SAT 100; BMI 30.2
--- NOTE | 2024-04-16 11:14 | A.OFFVIS_ITS ---
[facility] Disclaimer: The information contained in this section may have been updated after the patient was seen, as this information can be updated by other users. Medical History Eosinophilic asthma Uncontrolled asthma Current use of reject opener and filler anticoagulation GERD (gastroesophageal reflux disease) Febrile illness, acute Dyspnea on exertion Allergic rhinitis Paroxysmal A-fib Heart failure with reduced ejection fraction Echocardiogram abnormal 12/2019. LV size was mildly dilated, normal wall thickness, LVEF 30-35%, severe global hypokinesis, elevated LVEDP, mild RVE, mild LA/ERNIE, moderate MR, mild TR, dilated IVC, RVSP 47 mmHg H/O cardiovascular stress test 04/2020 LV perfusion normal. LVEF 62% Afib Asthma Surgical History Hx of tonsillectomy age 4 H/O colonoscopy 2019 WNL S/P ORIF (open reduction internal fixation) fracture left knee History of partial hysterectomy Family History Father Diabetes Cancer colon Hypertension Social History Smoking Status: Never smoker alcohol intake: current alcohol intake frequency: holidays/special occasions only substance use type: denies use current occupational status: unemployed Travel in the last 8 weeks: None household members: spouse housing: house marital status: number of children: 3 current occupation: retired Have you lived/traveled outside [place] in past 30 days?: No Contact w/someone who lives/traveled outside [place] past 30 days?: No Exposure to someone with infectious disease in past 14 days?: No Do you have a fever (greater than 100.4 F or 38 C)?: No Have you tested positive for COVID-19: No Exposed to someone with COVID-19 in past 14 days?: No Do you have a sore throat?: No Do you have a cough?: No Do you have any weakness?: No Do you have any diarrhea?: No Are you experiencing any unusual bleeding?: No Do you have any muscle aches/pain?: No Do you have any abdominal pain?: No Are you experiencing loss of taste or smell?: No PM Subjective & Objective Subjective Subjective:: Patient is a pleasant 58-year-old female who presents today for worsening pain. Today she does rated a 4 out of 10 however states that she has not done much yet this morning and that it will go to average 8 or a 9 out of 10. She denies any new falls or injuries. Patient does state it is still the same aching, throbbing sensation with radiating numbness and tingling that does go down into her bilateral lower extremities. Patient does state that she does officially feel like the last epidural has worn off and is back to her baseline. Patient states she would like to get scheduled for another injection because they have done so well in the past. Patient states that she got more than 50% at her last injection and felt like it worked well up until the last couple weeks. Patient has tried conservative treatment with minimal changes. Her Angel has been reviewed and is appropriate. Review of Systems: General: No recent weight changes, no fever, no sleep disturbances Respiratory: No cough, no shortness of air, no recurring pulmonary infections Cardiovascular/peripheral vascular: No chest pain, no palpitations, no edema, no shortness of breath Gastrointestinal: No new onset incontinence, normal bowel movements reported Genitourinary: No new onset incontinence Musculoskeletal: Low back pain, bilateral leg pain Psychiatric: [Normal mood/affect] Neurological: [Denies weakness in extremities], [denies balance issues] Pain at rest (0-10 scale): 8 Objective Objective:: Physical Exam: General: Alert and oriented x3, no acute distress, pleasant and cooperative Lungs: Respirations even and unlabored, symmetrical chest expansion Eyes: PERRL Musculoskeletal: Flexion and extension of lumbar [spine] somewhat guarded secondary to pain, [antalgic gait noted] positive leg raise Neurological: Speech clear, no gross sensory deficit Has patient had previous pain injection?: No Conservative treatment options previously tried: Home exercise plan Length of treatment: Longer than 12 weeks Meds Home Medications and Allergies Home Medications ?Medication ?Instructions ?Recorded ?Confirmed ?Type multivitamin 1 tab PO DAILY SUPPLIMENT 06/14/22 04/16/24 History blood sugar diagnostic ([employer] 07/05/22 04/16/24 History Lite Strips) blood-glucose meter ([employer] 07/05/22 04/16/24 History Lite Meter kit) albuterol sulfate 90 mcg/actuation 2 inh inhalation Q6H PRN shortness 08/04/22 04/16/24 Rx aerosol inhaler of breath or wheezing 90 days #8.5 grams levalbuterol tartrate 45 45 mcg inhalation DIRECTED 03/24/23 04/16/24 History mcg/actuation aerosol inhaler Breathing Problems (Xopenex HFA) apixaban 5 mg tablet (Eliquis) 5 mg PO BID Blood thinner 90 days 06/09/23 04/16/24 Rx #180 tabs escitalopram oxalate 20 mg tablet 20 mg PO DAILY MOOD #90 tabs 06/09/23 04/16/24 Rx (Lexapro) lisinopril 20 mg tablet 20 mg PO DAILY BLOOD PRESSURE #90 06/09/23 04/16/24 Rx tabs montelukast 10 mg tablet 10 mg PO HS ALLERGIES #90 tabs 06/09/23 04/16/24 Rx (Singulair) capsaicin-menthol 0.025 %-1.25 % 1 patch topical TID 5 days #6 ea 07/28/23 04/16/24 Rx topical patch (Salonpas (capsaicin-menthol)) conjugated estrogens 0.625 mg See Rx Instructions .Route 08/31/23 04/16/24 Rx tablet (Premarin) .COMPLEX #90 tabs ipratropium 0.5 mg-albuterol 3 mg 3 ml inhalation Q6H PRN shortness 10/13/23 04/16/24 Rx (2.5 mg base)/3 mL nebulization of breath or wheezing #90 mL soln benralizumab 30 mg/mL subcutaneous 30 mg SQ Q4W #1 mL 11/01/23 04/16/24 Rx auto-injector (Fasenra Pen) fluticasone fur. 200 mcg-umeclid 1 inh inhalation DAILY 90 days #90 01/02/24 04/16/24 Rx 62.5 mcg-vilant 25 mcg ea inhalat.powder (Trelegy Ellipta) sotalol 120 mg tablet (Betapace) 120 mg PO BID BLOOD PRESSURE #180 01/06/24 04/16/24 Rx tabs semaglutide 2 mg/dose (8 mg/3 mL) 2 mg (0.75 mL) SQ WEEKLY #3 mL 01/18/24 04/16/24 Rx subcutaneous pen injector hydrocodone 10 mg-acetaminophen 1 tab PO Q6H PRN pain #120 tabs 04/16/24 04/16/24 Rx 325 mg tablet hydrocodone 10 mg-acetaminophen 1 tab PO Q6H PRN pain #120 tabs 04/16/24 04/16/24 Rx 325 mg tablet zolpidem 10 mg tablet 10 mg PO HS PRN insomnia 60 days 04/16/24 04/16/24 Rx #60 tabs New Prescriptions to Start Prescriptions: Allergies Allergy/AdvReac Type Severity Reaction Status Date / Time ibuprofen Allergy Severe Anaphylaxis Verified 04/16/24 09:30 sulfamethoxazole (From Allergy Severe Swelling Verified 04/16/24 09:30 Bactrim) of Lip/Tongue/Throat trimethoprim (From Bactrim) Allergy Severe Swelling Verified 04/16/24 09:30 of Lip/Tongue/Throat bacitracin (From Neosporin Allergy Intermediate Rash Verified 04/16/24 09:30 ([id number])) metformin Allergy Intermediate Diarrhea Verified 04/16/24 09:30 neomycin (From Neosporin Allergy Intermediate Rash Verified 04/16/24 09:30 ([id number])) polymyxin B (From Neosporin Allergy Intermediate Rash Verified 04/16/24 09:30 ([id number])) Assessment and Plan *Assessment and plan (1) Lumbar radiculopathy: Status: Acute Category: Medical Code(s): M54.16 - Radiculopathy, lumbar region (2) Chronic pain: Status: Chronic Category: Medical Code(s): G89.29 - Other chronic pain (3) Bilateral hip pain: Status: Acute Category: Medical Code(s): M25.551 - Pain in right hip; M25.552 - Pain in left hip (4) DDD (degenerative disc disease): Status: Acute Qualifiers: Spinal region: lumbar Qualified Code(s): M51.36 - Other intervertebral disc degeneration, lumbar region Category: Medical Plan Patient is experiencing worsening pain in her low back with radiating numbness and tingling into her bilateral lower extremities. Patient did have limited range of motion of her lumbar spine with a positive leg raise. I did discuss with patient that I do believe they would benefit from a lumbar epidural steroid injection. Risk and benefits were discussed with patient and the patient would like to proceed forward with this plan of care. Patient is on blood thinners that is written by her primary care. We will reach out to this office to confirm she can stop this medication prior to this injection. Patient has tried and failed conservative therapy including continued at home stretching exercise for longer than 12 weeks between injections that was physician guided. Patient did previously have a lumbar epidural back in January 05 that provided more than 50% relief and lasted longer than 3 months. We will schedule the patient for an LESI L4-L5 under fluoroscopy. Patient has been instructed to contact the clinic with any concerns before the next appointment. Dr. Jones has reviewed this note and agrees with this plan of care. This note was dictated using voice recognition software and make contain errors or omissions. All injections are used with Lidocaine, Bupivacaine and Depo Medrol. Occasionally urine drug screen is needed to verify patient's compliance with our office pain contract. This is ordered based off specific treatments related to chronic pain with the potential to abuse certain medications.
== END 2024-04-16 23:59 | disposition home or self-care (01) ==
LOC: SC.PAIN 10:59
PROVIDERS: PCP Internal Medicine; Visit Provider Nurse Practitioner Family
DX: M51.16 Intervertebral disc disorders with radiculopathy, lumbar region (principal); G89.29 Other chronic pain; M25.551 Pain in right hip; M25.552 Pain in left hip; Z79.899 Other long term (current) drug therapy
CPT/HCPCS: 99212; G0463

== ENCOUNTER 2024-05-01 07:55 | Day surgery (SDC) | payer OTHER, SELFPAY ==
[2024-05-01 08:15] VITALS: BP 123/70; PULSE 76; RESP 16; TEMP 36.6; O2SAT 97; BMI 29.0
[2024-05-01] MEDS: methylPREDNISolone ACETATE 80MG/ML VIAL 80 MG (08:40)
[2024-05-01 08:41] VITALS: BP 115/81; PULSE 85; RESP 18; O2SAT 97
[2024-05-01 08:44] VITALS: BP 115/81; PULSE 68; RESP 18; O2SAT 97
--- NOTE | 2024-05-01 08:48 | EXP.PAIN.PRO ---
Procedure Date: 05/01/24 Time: 08:30 Anesthesiologist:: Hakeem Franco CRNA Complications:: None Pre-procedure Diagnosis:: Degenerative disc lumbar spine multilevels. Lumbar radiculopathy. Post-procedure Diagnosis:: Same. Indications for Procedure:: Patient is a very pleasant 58-year-old female who comes our clinic today for repeat lumbar epidural steroid injection. Patient describes low lumbar back pain as well as bilateral hip and leg radicular symptoms. She rates her pain 7/10. Patient reports having moderate to significant improvement terms of the above symptoms with previous injections at the L4-5 level. Procedure Details:: Procedure: Lumbar epidural steroid injection under fluoroscopy Informed consent was obtained and the risks and benefits of the procedure were explained to the patient. The patient was taken to the procedure room and noninvasive monitors placed, including noninvasive blood pressure cuff and pulse oximeter. The back was viewed using C-arm Fluoroscopy and prepped using Chloraprep as a cleansing solution and the L4-L5 interspace was palpated. Skin and subcutaneous tissues were anesthetized using lidocaine 1.5% and a 25-gauge needle. After this, an 18-gauge Touhy epidural needle was placed into the L4-L5 interspace and advanced using fluoroscopic guidance and loss of resistance to air until the epidural space was encountered. After confirmation of needle placement in the epidural space, with dye, a solution containing normal saline, 3 mL and Depo-Medrol 80 mg were incrementally injected into the lumbar epidural space. The patient tolerated the procedure well with no complications. The patient was observed in the Pain Clinic and then discharged home neurologically intact. Plan and Disposition:: Patient was discharged without incident.
[2024-05-01 09:00] VITALS: BP 102/63; PULSE 71; RESP 16; O2SAT 95
== END 2024-05-01 09:00 | disposition home or self-care (01) ==
PROVIDERS: PCP Internal Medicine; Visit Provider Nurse Anesthetist, Certified Registered
DX: M51.16 Intervertebral disc disorders with radiculopathy, lumbar region (principal)
CPT/HCPCS: 62323; J1010

== ENCOUNTER 2024-05-10 09:01 | Outpatient (CLI) | payer OTHER, SELFPAY ==
--- NOTE | 2024-05-10 09:01 | XR_ITS ---
FINAL REPORT TECHNIQUE: Bone mineral density was calculated of the lumbar spine and hip. CLINICAL HISTORY: height decreased by 2 inches COMPARISON: 06/22/2022 FINDINGS: Using L1-4, the bone mineral density of the spine is 1.3 2 7 g/cm2, corresponding to T-score of 2.5. Using the left hip, the bone mineral density of the femoral neck is 0.813 g/cm2, corresponding to a T-score of -0.3. Using the right hip, the bone mineral density of the femoral neck is 0.815 g/cm?, corresponding to a T-score of -0.3. NOTE: T-score: Standard deviation compared with peak bone mass of young adult mean. *Following the recommendations of the International Society of Bone densitometry, classification of hip BMD is based on the lower of two T-scores; total hip or femoral neck. IMPRESSION: Diminished bone mineral density of the bilateral hips consistent with osteopenia. Normal bone mineral density of the lumbar spine. Reviewed, Interpreted and Dictated by Gloria Rogers MD Transcribed by Lupe Sotelo Authenticated and [facility]
== END 2024-05-10 23:59 | disposition home or self-care (01) ==
LOC: RAD 09:01
PROVIDERS: PCP Internal Medicine; Visit Provider Internal Medicine
DX: M85.88 Other specified disorders of bone density and structure, other site (principal)
CPT/HCPCS: 77080

== ENCOUNTER 2024-05-14 11:39 | Outpatient (POV) | payer OTHER, SELFPAY ==
--- NOTE | 2024-05-14 11:47 | A.OFFVIS_ITS ---
[facility] Disclaimer: The information contained in this section may have been updated after the patient was seen, as this information can be updated by other users. 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 LV size was mildly dilated, normal wall thickness, LVEF 30-35%, severe global hypokinesis, elevated LVEDP, mild RVE, mild LA/ERNIE, moderate MR, mild TR, dilated IVC, RVSP 47 mmHg H/O cardiovascular stress test 04/2020 LV perfusion normal. 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 Today she rates her pain a 4 out of 10. She states that she has had great relief following this injection and feels like it still working. She rates at least 60% relief and feels like her movements are easier with overall decreased pain. She denies any other changes from her last appointment or any new falls or injuries.Patient is currently managed with Arnold 10 mg 4 times a day from Dr. Larry's office. She denies any side effects. Her Angel has been reviewed and is appropriate. Review of Systems: General: No recent weight changes, no fever, no sleep disturbances Respiratory: No cough, no shortness of air, no recurring pulmonary infections Cardiovascular/peripheral vascular: No chest pain, no palpitations, no edema, no shortness of breath Gastrointestinal: No new onset incontinence, normal bowel movements reported Genitourinary: No new onset incontinence Musculoskeletal: Low back pain Psychiatric: [Normal mood/affect] Neurological: [Denies weakness in extremities], [denies balance issues] Pain at rest (0-10 scale): 4 Objective Objective:: Physical Exam: General: Alert and oriented x3, no acute distress, pleasant and cooperative Lungs: Respirations even and unlabored, symmetrical chest expansion Eyes: PERRL Musculoskeletal: Flexion and extension of lumbar [spine] somewhat guarded secondary to pain, [antalgic gait noted] Neurological: Speech clear, no gross sensory deficit Has patient had previous pain injection?: Yes Percent improvement in pain since last injection: 60% Conservative treatment options previously tried: Home exercise plan Length of treatment: Longer than 12 weeks Meds Home Medications and Allergies Home Medications ?Medication ?Instructions ?Recorded ?Confirmed ?Type multivitamin 1 tab PO DAILY SUPPLIMENT 06/14/22 04/16/24 [facility] History Lite Strips[facility] History Lite Meter kit) albuterol sulfate 90 mcg/actuation 2 inh inhalation Q6H PRN shortness 08/04/22 04/16/24 Rx aerosol inhaler of breath or wheezing 90 days #8.5 grams levalbuterol tartrate 45 45 mcg inhalation DIRECTED 03/24/23 04/16/24 History mcg/actuation aerosol inhaler Breathing Problems (Xopenex HFA) apixaban 5 mg tablet (Eliquis) 5 mg PO BID Blood thinner 90 days 06/09/23 04/16/24 Rx #180 tabs escitalopram oxalate 20 mg tablet 20 mg PO DAILY MOOD #90 tabs 06/09/23 04/16/24 Rx (Lexapro) lisinopril 20 mg tablet 20 mg PO DAILY BLOOD PRESSURE #90 06/09/23 04/16/24 Rx tabs montelukast 10 mg tablet 10 mg PO HS ALLERGIES #90 tabs 06/09/23 04/16/24 Rx (Singulair) capsaicin-menthol 0.025 %-1.25 % 1 patch topical TID 5 days #6 ea 07/28/23 04/16/24 Rx topical patch (Salonpas (capsaicin-menthol)) conjugated estrogens 0.625 mg See Rx Instructions .Route 08/31/23 04/16/24 Rx tablet (Premarin) .COMPLEX #90 tabs ipratropium 0.5 mg-albuterol 3 mg 3 ml inhalation Q6H PRN shortness 10/13/23 04/16/24 Rx (2.5 mg base)/3 mL nebulization of breath or wheezing #90 mL soln benralizumab 30 mg/mL subcutaneous 30 mg SQ Q4W #1 mL 11/01/23 04/16/24 Rx auto-injector (Fasenra Pen) fluticasone fur. 200 mcg-umeclid 1 inh inhalation DAILY 90 days #90 01/02/24 04/16/24 Rx 62.5 mcg-vilant 25 mcg ea inhalat.powder (Trelegy Ellipta) sotalol 120 mg tablet (Betapace) 120 mg PO BID BLOOD PRESSURE #180 01/06/24 04/16/24 Rx tabs semaglutide 2 mg/dose (8 mg/3 mL) 2 mg (0.75 mL) SQ WEEKLY #3 mL 01/18/24 04/16/24 Rx subcutaneous pen injector hydrocodone 10 mg-acetaminophen 1 tab PO Q6H PRN pain #120 tabs 04/16/24 04/16/24 Rx 325 mg tablet hydrocodone 10 mg-acetaminophen 1 tab PO Q6H PRN pain #120 tabs 04/16/2404/07 Rx 325 mg tablet zolpidem 10 mg tablet 10 mg PO HS PRN insomnia 60 days 04/16/24 04/16/24 Rx #60 tabs alendronate 10 mg tablet 10 mg PO DAILY #30 tabs 05/14/24 Rx New Prescriptions to Start Prescriptions: Allergies Allergy/AdvReac Type Severity Reaction Status Date / Time ibuprofen Allergy Severe Anaphylaxis Verified 04/16/24 09:30 sulfamethoxazole (From Allergy Severe Swelling Verified 04/16/24 09:30 Bactrim) of Lip/Tongue/Throat trimethoprim (From Bactrim) Allergy Severe Swelling Verified 04/16/24 09:30 of Lip/Tongue/Throat bacitracin (From Neosporin Allergy Intermediate Rash Verified 04/16/24 09:30 ([id number])) metformin Allergy Intermediate Diarrhea Verified 04/16/24 09:30 neomycin (From Neosporin Allergy Intermediate Rash Verified 04/16/24 09:30 ([id number])) polymyxin B (From Neosporin Allergy Intermediate Rash Verified 04/16/24 09:30 ([id number])) Assessment and Plan *Assessment and plan (1) DDD (degenerative disc disease): Status: Acute Qualifiers: Spinal region: lumbar Qualified Code(s): M51.36 - Other intervertebral disc degeneration, lumbar region Category: Medical Plan Patient has had significant relief following her epidural injection and does not require any additional injection therapy at this time. Patient will return to clinic in 6 weeks. Patient has been instructed to contact the clinic with any concerns before the next appointment. Dr. Jones has reviewed this note and agrees with this plan of care. This note was dictated using voice recognition software and make contain errors or omissions. All injections are used with Lidocaine, Bupivacaine and Depo Medrol. Occasionally urine drug screen is needed to verify patient's compliance with our office pain contract. This is ordered based off specific treatments related to chronic pain with the potential to abuse certain medications.
[2024-05-14 11:48] VITALS: BP 106/73; PULSE 73; RESP 14; O2SAT 96; BMI 28.4
== END 2024-05-14 23:59 | disposition home or self-care (01) ==
LOC: SC.PAIN 11:40
PROVIDERS: PCP Internal Medicine; Visit Provider Nurse Practitioner Family
DX: M51.369 Other intervertebral disc degeneration, lumbar region without mention of lumbar back pain or lower extremity pain (principal); Z79.899 Other long term (current) drug therapy
CPT/HCPCS: 99212; G0463

== ENCOUNTER 2024-07-09 10:39 | Outpatient (CLI) | payer OTHER, SELFPAY ==
[2024-07-09 18:30] LABS: Basophils % 0.2 % (0.1-2.0); Hematocrit 37.7 % (37.0-47.0); Hemoglobin 12.4 g/dL (12.2-16.2); Lymphocytes # 2.1 K/mm3 (0.7-4.5); Lymphocytes % 25.5 % (10-50); Mean Corpuscular HGB Conc 32.9 g/dL (31.8-35.4); Mean Corpuscular Hemoglobin 32.8 pg (27.0-31.2); Mean Corpuscular Volume 99.7 fl (81-99); Monocytes # 0.8 K/mm3 (0.1-1.0); Monocytes % 9.5 % (1.7-9.3); Neutrophils # 5.3 K/mm3 (1.8-7.8); Neutrophils % 64.6 % (37.0-80.0); Nucleated Red Blood Cells # 0 10^3/uL; Nucleated Red Blood Cells % 0 %; Platelet Count 312 K/mm3 (142-424); Red Blood Count 3.78 M/mm3 (4.20-5.40); Red Cell Distribution Width 12.5 % (11.5-17.5); Red Cell Distribution Width-SD 46.2 fL; White Blood Count 8.2 K/mm3 (4.8-10.8)
[2024-07-09 20:23] LABS: Alanine Aminotransferase 15 U/L (12-78); Albumin Level 3.7 g/dl (3.5-5.0); Albumin/Globulin Ratio 1.5 (1.1-1.8); Alkaline Phosphatase 95 U/L (38-126); Anion Gap 3.9 mEq/L (5-15); Aspartate Amino Transferase 27 U/L (14-36); Bilirubin,Total 0.5 mg/dl (0.2-1.3); Blood Urea Nitrogen 9 mg/dl (7-17); Calcium 8.5 mg/dl (8.4-10.2); Carbon Dioxide 28 mmol/L (22.0-30.0); Chloride 108 mmol/L (98-107); Chol/HDL Ratio 3.4 (1-3.5); Cholesterol 151 mg/dl (140-200); Estimated Glomerular Filt Rate 102 ml/min (>60); GFR (African American) 124 ML/MIN (>60); Globulin 2.5 g/dL (1.3-3.2); Glucose 78 mg/dl (74-100); HDL Cholesterol 45 mg/dl (40-60); Potassium 3.9 mmoL/L (3.5-5.1); Sodium 136 mmol/L (136-145); Total Protein,Serum 6.2 g/dl (6.3-8.2); Triglycerides 227 mg/dl (30-150); VLDL Cholesterol 45 mg/dL (0-40)
[2024-07-09 20:34] LABS: Direct LDL Cholesterol 63.65 mg/dL (100-129)
[2024-07-09 21:28] LABS: Hemoglobin A1C 4.8 % (4.0-6.0)
== END 2024-07-09 23:59 | disposition home or self-care (01) ==
LOC: LAB.DROPOF 07-10 09:20
PROVIDERS: PCP Family Medicine; Visit Provider Family Medicine
DX: E11.69 Type 2 diabetes mellitus with other specified complication (principal); E66.9 Obesity, unspecified; J44.9 Chronic obstructive pulmonary disease, unspecified
CPT/HCPCS: 80053; 80061; 83036; 85025

== ENCOUNTER 2024-08-09 11:04 | Emergency (ER) | payer OTHER, SELFPAY ==
[2024-08-09 11:07] VITALS: BP 128/88; PULSE 74; RESP 18; TEMP 36.9; O2SAT 98; BMI 28.5
[2024-08-09 11:10] VITALS: BP 128/88; PULSE 74; O2SAT 98
[2024-08-09] MEDS: TET/DIPHTH/PERT-ADULT 0.5ML SYRINGE 0.5 ML IM (11:25)
[2024-08-09 11:31] VITALS: BP 104/76; PULSE 70; O2SAT 98
--- NOTE | 2024-08-09 11:57 | HMH.EDGENADL ---
Discharge Plan Disposition Patient Disposition: Home, Self-Care Condition: Good Prescriptions Prescriptions: No Action levalbuterol tartrate [Xopenex HFA] 45 mcg/actuation HFA aerosol inhaler 45 mcg inhalation DIRECTED multivitamin Tablet 1 tab PO DAILY Fasenra Pen 30 mg/mL auto-injector 30 mg SQ Q4W Qty: 1 2RF Rx Instructions: 30 mg administered once every 4 weeks for the first 3 doses, and then once every 8 weeks thereafter by subcutaneous injection semaglutide 2 mg/dose (8 mg/3 mL) pen injector 2 mg SQ WEEKLY Qty: 3 6RF lisinopril 20 mg tablet 20 mg PO DAILY Qty: 90 3RF escitalopram oxalate [Lexapro] 20 mg tablet 20 mg PO DAILY Qty: 90 3RF albuterol sulfate 90 mcg/actuation HFA aerosol inhaler 2 inh inhalation Q6H PRN (Reason: shortness of breath or wheezing) 90 Days Qty: 8.5 1RF Eliquis 5 mg tablet 5 mg PO BID 90 Days Qty: 180 3RF montelukast [Singulair] 10 mg tablet 10 mg PO HS Qty: 90 3RF Premarin 0.625 mg tablet See Rx Instructions .ROUTE .COMPLEX Qty: 90 3RF Dose Instruction: TAKE 1 TABLET DAILY FOR HORMONE REPLACEMENT Rx Instructions: TAKE 1 TABLET DAILY FOR HORMONE REPLACEMENT ipratropium-albuterol 0.5 mg-3 mg(2.5 mg base)/3 mL solution for nebulization 3 ml inhalation Q6H PRN (Reason: shortness of breath or wheezing) Qty: 90 3RF Trelegy Ellipta 200-62.5-25 mcg blister with device 1 inh inhalation DAILY 90 Days Qty: 90 3RF sotalol [Betapace] 120 mg tablet 120 mg PO BID Qty: 180 3RF zolpidem 10 mg tablet 10 mg PO HS PRN (Reason: insomnia) 60 Days Qty: 60 2RF hydrocodone-acetaminophen 10-325 mg tablet 1 tab PO Q6H PRN (Reason: pain) Qty: 120 0RF (DME) FreeStyle Lite Strips Strip See Rx Instructions .ROUTE .MEDSUPPLY Rx Instructions: As directed (DME) blood-glucose meter [FreeStyle Lite Meter] Kit See Rx Instructions .ROUTE .MEDSUPPLY Rx Instructions: As directed Referrals Follow up/Referrals: Randall Alanis MD [Primary Care Provider, Family Practice] - See instructions Activity Restrictions/Add. Instructions Additional Instructions/Restrictions: You were evaluated in the emergency department today. Your skin tear is very superficial, so there were no sutures or kelsey used to repair this today. Please apply antibiotic ointment twice daily and apply a clean, dry dressing to the wound twice daily. Use a nonadherent dressing, such as Vaseline coated gauze or other nonadherent dressing. Monitor for any signs of infection, such as redness, warmth, or pus draining from the wounds. Follow-up with your primary care provider over the next week for wound recheck. Return to the emergency department for new or worsening symptoms. Clinical Impressions Clinical Impression: Fall, Skin tear of left lower leg without complication Stand Alone Forms Stand Alone Forms: Work/School Release Instructions Patient Instructions: DI for Abrasion, Skin Wound Print Language Print Language: Malay Discharge ED Provider: Merced Bose General Adult HPI General Chief complaint: Skin/Abscess/Foreign Body Stated complaint: AO 08/09/24 10:45, lac to left leg Time Seen by Provider: 08/09/24 11:18 Mode of Arrival: Wheelchair Source of Information: Patient Description of Symptoms (Recalled from ER Triage Doc. by RN): pt presents to ED after tripping over dog gate. pt has skin tear to left lower leg. pt reports hitting right knee. pt denies hitting her head or any LOC. History of Present Illness HPI narrative: This patient is a 58-year-old female with a history of atrial fibrillation on Eliquis, type 2 diabetes, hypertension, and asthma presenting to the emergency department for evaluation with concern for skin tear to left lower leg after tripping over a dog gate. She did not hit her head or lose consciousness. She denies any other concerns or complaints aside from the large skin tear to her left lower leg. She notes she came in because it kept bleeding. She was well prior to this. Related Data Home Medications ?Medication ?Instructions ?Recorded ?Confirmed multivitamin 1 tab PO DAILY SUPPLIMENT 06/14/22 07/09/24 blood sugar diagnostic (FreeStyle 07/05/22 05/14/24 Lite Strips) blood-glucose meter (FreeStyle 07/05/22 05/14/24 Lite Meter kit) levalbuterol tartrate 45 45 mcg inhalation DIRECTED 03/24/23 07/09/24 mcg/actuation aerosol inhaler Breathing Problems (Xopenex HFA) Previous Rx's ?Medication ?Instructions ?Recorded albuterol sulfate 90 mcg/actuation 2 inh inhalation Q6H PRN shortness 08/04/22 aerosol inhaler of breath or wheezing 90 days #8.5 grams apixaban 5 mg tablet (Eliquis) 5 mg PO BID Blood thinner 90 days 06/09/23 #180 tabs montelukast 10 mg tablet 10 mg PO HS ALLERGIES #90 tabs 06/09/23 (Singulair) conjugated estrogens 0.625 mg See Rx Instructions .Route 08/31/23 tablet (Premarin) .COMPLEX #90 tabs ipratropium 0.5 mg-albuterol 3 mg 3 ml inhalation Q6H PRN shortness 10/13/23 (2.5 mg base)/3 mL nebulization of breath or wheezing #90 mL soln benralizumab 30 mg/mL subcutaneous 30 mg SQ Q4W #1 mL 11/01/23 auto-injector (Fasenra Pen) fluticasone fur. 200 mcg-umeclid 1 inh inhalation DAILY 90 days #90 01/02/24 62.5 mcg-vilant 25 mcg ea inhalat.powder (Trelegy Ellipta) sotalol 120 mg tablet (Betapace) 120 mg PO BID BLOOD PRESSURE #180 01/06/24 tabs zolpidem 10 mg tablet 10 mg PO HS PRN insomnia 60 days 06/12/24 #60 tabs escitalopram oxalate 20 mg tablet 20 mg PO DAILY MOOD #90 tabs 07/09/24 (Lexapro) lisinopril 20 mg tablet 20 mg PO DAILY BLOOD PRESSURE #90 07/09/24 tabs semaglutide 2 mg/dose (8 mg/3 mL) 2 mg (0.75 mL) SQ WEEKLY #3 mL 07/09/24 subcutaneous pen injector hydrocodone 10 mg-acetaminophen 1 tab PO Q6H PRN pain #120 tabs 08/07/24 325 mg tablet Allergies Allergy/AdvReac Type Severity Reaction Status Date / Time ibuprofen Allergy Severe Anaphylaxis Verified 07/09/24 09:40 sulfamethoxazole (From Allergy Severe Swelling Verified 07/09/24 09:40 Bactrim) of Lip/Tongue/Throat trimethoprim (From Bactrim) Allergy Severe Swelling Verified 07/09/24 09:40 of Lip/Tongue/Throat bacitracin (From Neosporin Allergy Intermediate Rash Verified 07/09/24 09:40 ([id number])) metformin Allergy Intermediate Diarrhea Verified 07/09/24 09:40 neomycin (From Neosporin Allergy Intermediate Rash Verified 07/09/24 09:40 ([id number])) polymyxin B (From Neosporin Allergy Intermediate Rash Verified 07/09/24 09:40 ([id number])) [facility] Disclaimer: The information contained in this section may have been updated after the patient was seen, as this information can be updated by other users. 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 GERD (gastroesophageal reflux disease) Allergic rhinitis Paroxysmal A-fib Heart failure with reduced ejection fraction Echocardiogram abnormal H/O cardiovascular stress test Afib Asthma Surgical History Hx of tonsillectomy H/O colonoscopy S/P ORIF (open reduction internal fixation) fracture History of partial hysterectomy Family History Father Diabetes Cancer Hypertension Social History Smoking Status: Never smoker alcohol intake: current alcohol intake frequency: holidays/special occasions only substance use type: denies use current occupational status: other Travel in the last 8 weeks?: None household members: spouse housing: house marital status: number of children: 3 current occupation: retired Have you lived/traveled outside [place] in past 30 days?: No Contact w/someone who lives/traveled outside US past 30 days?: No Exposure to someone with infectious disease in past 14 days?: No Do you have a fever (greater than 100.4 F or 38 C)?: No Have you tested positive for COVID-19?: No Exposed to someone with COVID-19 in past 14 days?: No Do you have a sore throat?: No Do you have a cough?: No Do you have any weakness?: No Do you have any diarrhea?: No Are you experiencing any unusual bleeding?: No Do you have any muscle aches/pain?: No Do you have any abdominal pain?: No Are you experiencing loss of taste or smell?: No Other Medical History Have you received the Flu Vaccine for this season: Yes Have you received the Pneumonia Vaccine: Yes ROS Obtained: Yes All systems reviewed & no additional complaints except as documented Physical Exam General General appearance: alert and in no apparent distress Head Head exam: atraumatic and normocephalic Eye Eye exam: Present normal appearance, PERRL and EOMI ENT ENT exam: Present normal exam, normal oropharynx, mucous membranes moist and normal external ear exam Neck Neck exam: Present normal inspection, full ROM and trachea midline; Absent tenderness Chest Chest inspection: Present normal inspection and symmetric chest wall rise; Absent tenderness Respiratory Respiratory exam: Present normal lung sounds bilaterally; Absent respiratory distress, wheezes, stridor or accessory muscle use Cardiovascular Cardiovascular exam: Present regular rate and normal rhythm Abdominal Exam Abdominal exam: Present soft; Absent distention, tenderness or guarding Extremities Exam Extremities exam: Present full ROM and normal capillary refill; Absent tenderness or edema Expanded Lower Extremity Exam Left: Leg image:  1. Large very superficial flap skin tear. Minimal soft tissue swelling underlying this region. No significant bony tenderness. Neurovascularly intact distally. 2. Smaller skin tear this very superficial Back Exam Back exam: Present normal inspection and full ROM; Absent tenderness Neurological Exam Neurological exam: Present alert, oriented X3, CN II-XII intact and normal gait; Absent motor sensory deficit Psychiatric Psychiatric exam: Present normal affect and normal mood Skin Skin exam: Present warm and dry Medical Decision Making Medical Records Medical records reviewed: Yes I reviewed the patient's medical records. Screening: Per USPSTF and CDC recommendations, given the prevalence of disease in our region, it is our hospital?s policy to screen for HIV and viral Hepatitis for all patients aged 18 and over and those with ongoing risk factors. Angel Inquiry Pt receiving controlled substance: No Vital Signs: 08/09/24 11:07 Temperature 98.4 F Temperature Source Oral Pulse Rate [Right Radial] 74 Respiratory Rate 18 Blood Pressure [Right Arm] 128/88 Blood Pressure Mean [Right Arm] 101 Blood Pressure Source [Right Arm] Automatic Cuff Blood Pressure Position [Right Arm] Sitting 02 Sat by Pulse Oximetry 98 Oxygen Delivery Method Room Air Lab Data Lab results reviewed: Yes I reviewed the patient's lab results. Orders (Tests/Meds): ED MEDICATIONS Discontinued Medications Generic Name Dose Route Start Last Admin Trade Name Gera PRN Reason Stop Dose Admin Bacitracin 1 gm 08/09/24 11:53 Bacitracin Zinc Oint 30gm Tube TP 08/09/24 11:54 ONCE ONE Tetanus/Reduced Diphtheria/Acell Pertussis 0.5 ml 08/09/24 11:15 08/09/24 11:25 Tet/Diphth/Pert-Adult 0.5ml Syringe IM 08/09/24 11:16 0.5 ml .ONCE ONE Administration Medical Decision Narrative: In summary, this patient is a 58-year-old female presenting to the Emergency Department for evaluation of skin tears to the left lower leg after mechanical ground-level fall. Differential diagnoses considered include but are not limited to skin tear, laceration, abrasion, polytrauma. Ruling out the most morbid conditions drove assessment. It should be noted patient's history includes atrial fibrillation on Eliquis which may or may not be at goal therapy. This complicates all aspects of care by increasing patient's risk for morbidity. On exam, the patient is well-appearing. She is ambulatory without issue and is neurologically intact. She did not hit her head or lose consciousness, but given that she takes a blood thinner I did recommend CT scan of the head in the setting of a ground-level fall, however she declines stating that she did not hit her head and think she is okay. Risk versus benefit discussion had, and decided to defer after shared decision-making with the patient. At this time, I do not feel that other imaging is indicated based on reassuring history and exam. She has skin tears to the left lower leg that are very superficial, there is nothing to suture or staple. Local wound care was performed with cleaning, application of bacitracin, and application of a nonadherent dressing. She tolerated this well with no complication. She notes she is allergic to Neosporin/triple antibiotic ointment, but she is tolerated bacitracin well in the past. Ultimately at this time, I feel she is appropriate for discharge with instructions for wound care and close follow-up with primary care for wound recheck. She is given strict return precautions Critical Care Critical Care Time Critical Care Time: No
[2024-08-09 12:00] VITALS: BP 111/80; PULSE 69; O2SAT 98
[2024-08-09] MEDS: BACITRACIN ZINC OINT 30GM TUBE TP (12:02)
--- NOTE | 2024-08-09 12:05 | PC.NURSE ---
Pt left leg laceration cleansed with saline, bacitracin applied, non-adherent bandage, curlex and nicole wrap. Educated pt on cleaning and signs of infection. Supplies sent home with pt for dressing changes.
[2024-08-09 12:09] VITALS: BP 111/80; PULSE 72; RESP 16; TEMP 36.6; O2SAT 97
== END 2024-08-09 12:11 | disposition home or self-care (01) ==
PROVIDERS: Emergency Provider Emergency Medicine; PCP Family Medicine
DX: S81.802A Unspecified open wound, left lower leg, initial encounter (principal); W01.10XA Fall on same level from slipping, tripping and stumbling with subsequent striking against unspecified object, initial encounter; Z23 Encounter for immunization
CPT/HCPCS: 90471; 90715; 99283

== ENCOUNTER 2024-08-20 12:40 | Outpatient (CLI) | payer OTHER, SELFPAY ==
--- OUTSIDE RECORDS SUMMARY | 2024-08-20 12:43 | XMS_ITS | Clinical Summary ---
Author Organization Healthcare Address [address] [place] [address] Care Team Providers Care [employer] Name Role Phone Lori Petersen APRN Primary Care Provider [phone] Social History Tobacco Use Types Packs/Day Years Used Date Smoking Tobacco: Never Assessed Comments Unknown Sex and Gender Information Value Date Recorded Sex Assigned at Not on file Legal Sex Female 4:51 PM EDT Gender Identity Not on file Sexual Orientation Not on file Plan of Treatment Health Maintenance Due Date Last Done Comments [facility]-Depression Screening 1964 [facility]-/Child/Adol SDOH Screenings 1964 [facility]- SDOH Screenings 1982 [facility]-Adult SDOH Screenings 1982 [facility]-DTaP,Tdap,and Td Vaccine s (1 - Tdap) 09/22/1983 [facility]-Hepatitis B Vaccines (1 of 3 - 19+ 3-dose series) 09/22/1983 [facility]-Pap Smear 1985 [facility]-Cervical Cancer Screening 1994 [facility]-HPV/Cotest 1994 CT Colonography 2009 Colonoscopy 2009 FIT-DNA 2009 FIT 2009 FOBT 2009 Sigmoidoscopy 2009 [facility]-Colorectal Cancer Screening 2009 [facility]-Pneumococcal Vaccine: 50 + Years (1 of 1 - PCV) 2014 [facility]-Zoster Vaccines (1 of 2) 2014 [id number] Vaccine (1 - 20 24-25 season) 2023 [facility]-Influenza Vaccine ([place]as[place] n Ended) 2024 HPV Vaccines Aged Out No longer eligi ble based on patient's age to complete this topic [facility]-HIB Vaccines Aged Out No longer e ligible based on patient's age to complete this topic [facility]-Hepatitis A Vaccines Aged Out No longer eligible based on patient's age to complete this topic [facility]-IPV Vaccines Aged Out No longer e ligible based on patient's age to complete this topic [facility]-Rotavirus Vaccines Aged Out No lo nger eligible based on patient's age to complete this topic Care Teams [employer] Relationship Specialty Start Date End Date Lori Petersen, [employer] [address] [place] [address] PCP - General 07/02/22
--- NOTE | 2024-08-20 12:44 | XR_ITS ---
FINAL REPORT CLINICAL HISTORY: trauma, fall, mid tib/fib pain, COMPARISON: None FINDINGS: Two views of the left tibia/fibula were obtained. There is a single transverse orthopedic screw in the proximal tibial metaphysis. There is no acute fracture or dislocation. The joint spaces are intact. Sharpening of the tibial spines is noted. There is no soft tissue abnormality. IMPRESSION: No acute bony abnormality. Reviewed, Interpreted and Dictated by Kendrick Dee MD Transcribed by Cori Dang Authenticated and [facility]
== END 2024-08-20 23:59 | disposition home or self-care (01) ==
LOC: RAD 12:41
PROVIDERS: PCP Family Medicine; Visit Provider Family Medicine
DX: S80.10XA Contusion of unspecified lower leg, initial encounter (principal)
CPT/HCPCS: 73590

== ENCOUNTER 2024-09-27 08:00 | Day surgery (SDC) | payer OTHER, SELFPAY ==
[2024-09-25 13:17] VITALS: BMI 28.3
--- NOTE | 2024-09-27 08:16 | EXP.HP ---
History of Present Illness *Admission Date: 09/27/24 *Reason for visit:: Screening for colon cancer *History of present illness: Mrs. Goodrich is a 59-year-old female who is here for screening colonoscopy. Her last colonoscopy was 10 years ago. The examination is deemed medically necessary for screening colonoscopy. The patient has been seen, interviewed and examined prior to the procedure by both myself and the anesthesia provider. [facility] Disclaimer: The information contained in this section may have been updated after the patient was seen, as this information can be updated by other users. Medical History DDD (degenerative disc disease) Chronic pain Diabetes mellitus Breast cancer screening by mammogram Anxiety and depression HTN (hypertension) Insomnia Lumbar radiculopathy Eosinophilic asthma Uncontrolled asthma Current use of superintendent terminal anticoagulation GERD (gastroesophageal reflux disease) Allergic rhinitis Paroxysmal A-fib Heart failure with reduced ejection fraction Echocardiogram abnormal 12/2019. LV size was mildly dilated, normal wall thickness, LVEF 30-35%, severe global hypokinesis, elevated LVEDP, mild RVE, mild LA/ERNIE, moderate MR, mild TR, dilated IVC, RVSP 47 mmHg H/O cardiovascular stress test 04/2020 LV perfusion normal. LVEF 62% Afib Asthma Surgical History Hx of tonsillectomy age 4 H/O colonoscopy ~2015 WNL S/P ORIF (open reduction internal fixation) fracture left knee History of partial hysterectomy Family History Father Diabetes Cancer colon Hypertension Social History Smoking Status: Never smoker alcohol intake: current alcohol intake frequency: holidays/special occasions only substance use type: denies use current occupational status: other Travel in the last 8 weeks?: None household members: spouse housing: house marital status: number of children: 3 current occupation: retired Have you lived/traveled outside US in past 30 days?: No Contact w/someone who lives/traveled outside US past 30 days?: No Exposure to someone with infectious disease in past 14 days?: No Do you have a fever (greater than 100.4 F or 38 C)?: No Have you tested positive for COVID-19?: No Exposed to someone with COVID-19 in past 14 days?: No Do you have a sore throat?: No Do you have a cough?: No Do you have any weakness?: No Do you have any diarrhea?: No Are you experiencing any unusual bleeding?: No Do you have any muscle aches/pain?: No Do you have any abdominal pain?: No Are you experiencing loss of taste or smell?: No Other Medical History Have you received the Flu Vaccine for this season: Yes Have you received the Pneumonia Vaccine: Yes Review of Systems Review of Systems Review of systems (narrative): Negative *Cardiovascular Comments: Negative *Gastrointestinal Comments: Negative *Genitourinary Comments: Negative *Musculoskeletal Comments: Negative *Neurologic Comments: Negative Meds Home Medications and Allergies Home Medications ?Medication ?Instructions ?Recorded ?Confirmed ?Type multivitamin 1 tab PO DAILY SUPPLIMENT 06/14/22 09/27/24 [facility]24 History Lite Strips) [facility] 09/06/24 History Lite Meter kit) albuterol sulfate 90 mcg/actuation 2 inh inhalation Q6H PRN shortness 08/04/22 09/27/24 Rx aerosol inhaler of breath or wheezing 90 days #8.5 grams levalbuterol tartrate 45 45 mcg inhalation DIRECTED 03/24/23 09/27/24 History mcg/actuation aerosol inhaler Breathing Problems (Xopenex HFA) conjugated estrogens 0.625 mg See Rx Instructions .Route 08/31/23 09/27/24 Rx tablet (Premarin) .COMPLEX #90 tabs ipratropium 0.5 mg-albuterol 3 mg 3 ml inhalation Q6H PRN shortness 10/13/23 09/27/24 Rx (2.5 mg base)/3 mL nebulization of breath or wheezing #90 mL soln fluticasone fur. 200 mcg-umeclid 1 inh inhalation DAILY 90 days #90 01/02/24 09/27/24 Rx 62.5 mcg-vilant 25 mcg ea inhalat.powder (Trelegy Ellipta) sotalol 120 mg tablet (Betapace) 120 mg PO BID BLOOD PRESSURE #180 01/06/24 09/27/24 Rx tabs lisinopril 20 mg tablet 20 mg PO DAILY BLOOD PRESSURE #90 07/09/24 09/27/24 Rx tabs semaglutide 2 mg/dose (8 mg/3 mL) 2 mg (0.75 mL) SQ WEEKLY #3 mL 07/09/24 09/27/24 Rx subcutaneous pen injector lorazepam 2 mg tablet 2 mg PO HS PRN sleep #14 tabs 08/20/24 09/27/24 Rx metoprolol tartrate 25 mg tablet 25 mg PO DAILY PRN palpitations 09/03/24 09/27/24 Rx #30 tabs hydrocodone 10 mg-acetaminophen 1 tab PO Q6H PRN pain #120 tabs 09/05/24 09/27/24 Rx 325 mg tablet apixaban 5 mg tablet (Eliquis) 5 mg PO BID Blood thinner 90 days 09/10/24 09/27/24 Rx #180 tabs escitalopram oxalate 20 mg tablet 20 mg PO DAILY MOOD #90 tabs 09/10/24 09/27/24 Rx (Lexapro) montelukast 10 mg tablet 10 mg PO HS ALLERGIES #90 tabs 09/10/24 09/27/24 Rx (Singulair) [id number] 140 gram-sod sulfate 9 500 ml PO .COMPLEX colonscopy #3 ea 09/14/24 Rx gram-NaCl 5.2gram-KCl-C oral pwdr packs (Plenvu) benralizumab 30 mg/mL subcutaneous 30 mg SQ Q90MIN 09/25/24 09/27/24 History auto-injector (Fasenra Pen) zolpidem 10 mg tablet (Ambien) 10 mg PO HS PRN insomnia 09/27/24 09/27/24 History New Prescriptions to Start Prescriptions: Allergies Allergy/AdvReac Type Severity Reaction Status Date / Time ibuprofen Allergy Severe Anaphylaxis Verified 09/27/24 08:17 sulfamethoxazole (From Allergy Severe Swelling Verified 09/27/24 08:17 Bactrim) of Lip/Tongue/Throat trimethoprim (From Bactrim) Allergy Severe Swelling Verified 09/27/24 08:17 of Lip/Tongue/Throat bacitracin (From Neosporin Allergy Intermediate Rash Verified 09/27/24 08:17 ([id number])) metformin Allergy Intermediate Diarrhea Verified 09/27/24 08:17 neomycin (From Neosporin Allergy Intermediate Rash Verified 09/27/24 08:17 ([id number])) polymyxin B (From Neosporin Allergy Intermediate Rash Verified 09/27/24 08:17 (vij-[id number])) Sulfa (Sulfonamide Allergy Nausea Verified 09/27/24 08:17 Antibiotics) Exam Data for Last 24 hours I & O for Last 24 hours: Intake & Output 09/24/24 09/25/24 09/26/24 09/27/24 23:59 23:59 23:59 23:59 Weight 197 lb *Routine HEENT Exam Head: Present normocephalic Eye: Present EOMI and PERRL ENT: Present mucous membranes moist *Routine Neck Exam Neck: Present supple *Routine Respiratory Exam Respiratory: Present CTA bilaterally *Routine Cardiovascular Exam Cardiovascular: Present RRR *Routine Abdominal Exam Abdominal: Present soft and normoactive bowel sounds; Absent tenderness *Routine Rectal Exam Rectal:: deferred *Routine Genitalia Exam Genitalia:: deferred *Routine Extremities Exam Extremities: Absent cyanosis, clubbing or edema *Routine Skin Exam Skin: Present warm; Absent rash *Routine Neurological Exam Neurological: Present alert and oriented X3 Assessment and Plan *Assessment and plan (1) Screening for colon cancer: Status: Acute Category: Medical Code(s): Z12.11 - Encounter for screening for malignant neoplasm of colon Plan A/P: 1. Screening for colon cancer is the preprocedural diagnosis. The patient will be anesthetized/sedated using MAC sedation. The patient has been seen and examined. Cardiac and lung assessment prior to the examination is stable. Proceed with planned screening colonoscopy.
[2024-09-27 08:23] VITALS: BP 116/77; PULSE 73; RESP 18; TEMP 36.1; O2SAT 98
[2024-09-27 08:26] LABS: POC Glucose,Bedside 96 (70-110)
[2024-09-27] MEDS: LACTATED RINGERS 1000ML 1,000 ML 50 ML IV (08:39)
--- NOTE | 2024-09-27 08:54 | P.PNANES_ITS ---
[facility] Disclaimer: The information contained in this section may have been updated after the patient was seen, as this information can be updated by other users. Medical History DDD (degenerative disc disease) Chronic pain Diabetes mellitus Breast cancer screening by mammogram Anxiety and depression HTN (hypertension) Insomnia Lumbar radiculopathy Eosinophilic asthma Uncontrolled asthma Current use of custodial anticoagulation GERD (gastroesophageal reflux disease) Allergic rhinitis Paroxysmal A-fib Heart failure with reduced ejection fraction Echocardiogram abnormal 12/2019. LV size was mildly dilated, normal wall thickness, LVEF 30-35%, severe global hypokinesis, elevated LVEDP, mild RVE, mild LA/ERNIE, moderate MR, mild TR, dilated IVC, RVSP 47 mmHg H/O cardiovascular stress test 04/2020 LV perfusion normal. LVEF 62% Afib Asthma Surgical History Hx of tonsillectomy age 4 H/O colonoscopy ~2015 WNL S/P ORIF (open reduction internal fixation) fracture left knee History of partial hysterectomy Family History Father Diabetes Cancer colon Hypertension Social History Smoking Status: Never smoker alcohol intake: current alcohol intake frequency: holidays/special occasions only substance use type: denies use current occupational status: other Travel in the last 8 weeks?: None household members: spouse housing: house marital status: number of children: 3 current occupation: retired Have you lived/traveled outside US in past 30 days?: No Contact w/someone who lives/traveled outside US past 30 days?: No Exposure to someone with infectious disease in past 14 days?: No Do you have a fever (greater than 100.4 F or 38 C)?: No Have you tested positive for COVID-19?: No Exposed to someone with COVID-19 in past 14 days?: No Do you have a sore throat?: No Do you have a cough?: No Do you have any weakness?: No Do you have any diarrhea?: No Are you experiencing any unusual bleeding?: No Do you have any muscle aches/pain?: No Do you have any abdominal pain?: No Are you experiencing loss of taste or smell?: No [facility] Anesthesia Checklist Patient Identification Patient Identification: Arm Band and Family Structural Data Admitted From: Home Planned Operative Procedure/s: Colonoscopy Consent for Planned Operative Procedure(s) Verified: Yes Verified Documents: Surgical Consent and History and Physical NPO Status Verified Time NPO: 00:00 Additional verifications Patient : No Anesthesia Reactions: No Hx Blood Transfusions: No Blood Transfusion Reaction: No Cephalosporin Allergy: No Previous Colonoscopy: Yes Airway Assessment Mallampati Score:: Class II C-Spine Mobility Assessed: Yes TMJ Mobility Assessed: Yes Dentition: Good Dentition Neurological Assessment Level of Consciousness: Awake, Alert, Appropriate and Follows Commands Hx Seizures: No Numbness or tingling in extremities: No Anesthesia Plan Anesthesia Risk discussed: Yes ASA Class: II Anesthesia Type: MAC Preoperative Comments Pre-Operative Comments: A-Fib. Asthma.
--- NOTE | 2024-09-27 09:38 | P.PCN_ITS ---
[facility] Procedure Note Date: 09/27/24 Time: 09:51 Procedure Note:: Colonoscopy Procedure Report: Colonoscopy with cold snare polypectomy Endoscopist: Tim Vaca II, MD Referring physician: Randall Alanis MD Date of Procedure: September 27, 2024 Equipment: Olympus [id number] adult colonoscope Sedation: MAC sedation Indication: Mrs. Goodrich is a 59-year-old female who is here for screening/surveillance colonoscopy. Her last colonoscopy 9 to 10 years ago in [place] was normal. She reports no abdominal pain, weight loss, change in her bowel habits or rectal bleeding. She reports no family history of colon cancer. Procedure: Prior to the procedure, a history and physical exam was performed, and patient's medications and allergies were reviewed. The risks, benefits and alternatives of the sedation and procedure were discussed with the patient. All questions were answered and informed consent was obtained. The patient was brought to the procedure room. Patient identification and proposed procedure were verified by the physician and the nurse. The patient was placed in a left lateral decubitus position and the scope was passed under direct vision. Throughout the procedure, the patient's blood pressure, pulse, and oxygen saturations were monitored continuously. The colonoscopy was accomplished without difficulty. The patient tolerated the procedure well. Findings: On digital rectal examination there was normal rectal tone. There were no external hemorrhoids. The colonoscope was introduced through the anal canal to the rectum and advanced to the cecum. The ileocecal valve and appendiceal orifice were identified. The scope was advanced a short distance into the ileum which appeared grossly normal. The scope was then withdrawn into the colon. The cecum, ascending and transverse colon and mucosa were grossly normal. There were mildly scattered diverticuli throughout the descending and sigmoid colon (LEFT colon). There were 2 polyps (sigmoid x 1 (4 mm) and rectosigmoid x 1 (5 mm)). Both of these were removed via cold snare polypectomy. The rectum itself was normal. Upon retroflexion within the rectum there were grade 1-2 internal hemorrhoids. The preparation was excellent throughout with Camillus Preparation Score of 9. The cecal time was 12 minutes. Impression: 1. Diminutive colonic polyps x 2 2. Mild left-sided diverticulosis 3. Grade 1-2 internal hemorrhoids Plan: I will follow-up the polyp histology and recommend repeat surveillance colonoscopy again in 7 years if the polyps are adenomatous. I would encourage psyllium bulking fiber supplementation on a long-term daily maintenance basis.
[2024-09-27 09:53] VITALS: BP 86/49; PULSE 87; RESP 16; TEMP 36.1; O2SAT 96
[2024-09-27 10:03] VITALS: BP 98/55; PULSE 78; RESP 16; O2SAT 99
[2024-09-27 10:13] VITALS: BP 105/66; PULSE 72; RESP 16; O2SAT 94
[2024-09-27 10:23] VITALS: BP 116/73; PULSE 76; RESP 16; TEMP 36.1; O2SAT 97
== END 2024-09-27 10:38 | disposition home or self-care (01) ==
PROVIDERS: PCP Family Medicine; Visit Provider Internal Medicine Gastroenterology
PROC: 0DJD8ZZ Inspection of Lower Intestinal Tract, Via Natural or Artificial Opening Endoscopic (ICD-10-PCS; CPT 45378; principal; 2024-09-27 09:30)
DX: Z12.11 Encounter for screening for malignant neoplasm of colon (principal); D12.5 Benign neoplasm of sigmoid colon; D12.7 Benign neoplasm of rectosigmoid junction; K57.30 Diverticulosis of large intestine without perforation or abscess without bleeding; K64.0 First degree hemorrhoids; K64.1 Second degree hemorrhoids; J45.909 Unspecified asthma, uncomplicated; K21.9 Gastro-esophageal reflux disease without esophagitis; E11.9 Type 2 diabetes mellitus without complications; I10 Essential (primary) hypertension; Z88.6 Allergy status to analgesic agent; Z88.2 Allergy status to sulfonamides; Z88.8 Allergy status to other drugs, medicaments and biological substances; Z88.1 Allergy status to other antibiotic agents; Z79.899 Other long term (current) drug therapy
CPT/HCPCS: 45385; 82962; J2003; J2704; J7120

== ENCOUNTER 2024-09-28 09:46 | Outpatient (CLI) | payer OTHER, SELFPAY ==
--- OUTSIDE RECORDS SUMMARY | 2023-07-30 05:00 | XMS_ITS ---
Author Organization [facility] Address [address] [place] [address] Care Team Providers Care Senior Functional Analyst Name Role Phone Migration, Provider Unavailable Unavailable REASON FOR VISIT EMR-Carlos Encounters Encounter Location Date Provider Diagnosis [facility] [address] [place] [address] 07/30/2023 Provider Migration Plan Of Treatment No Information Progress Notes * Herber GOODRICHDOB:1965 (59 yo F)Acc No.[id number]:07/30/2023 Patient: Rohini Herber BRADFORD :1965 A ge:57 Y S ex:Female Phone: Address:[address] [place] [address], [phone] Subjective: * Chief Complaints: * E MR-Carlos * Medical History: * Surgical History: * Hospitalization/Major Diagno stic Procedure: * Medications: Objective: * Vitals: * Physical Examination: Assessment: Plan: * Treatment: * Procedure Codes: * * Date:
--- OUTSIDE RECORDS SUMMARY | 2023-07-31 05:00 | XMS_ITS ---
Author Organization [facility] Address [address] [place] [address] Care Team Providers Care Clean Rice Broker Name Role Phone Migration, Provider Unavailable Unavailable REASON FOR VISIT EMR-Carlos Encounters Encounter Location Date Provider Diagnosis [facility] [address] [place] [address] 07/31/2023 Provider Migration Plan Of Treatment No Information Progress Notes * Herber GOODRICHDOB:1965 (59 yo F)Acc No.[id number]:07/31/2023 Patient: Rohini Herber BRADFORD :1965 A ge:57 Y S ex:Female Phone: Address:[address] [place] [address], [phone] Subjective: * Chief Complaints: * E MR-Carlos * Medical History: * Surgical History: * Hospitalization/Major Diagno stic Procedure: * Medications: Objective: * Vitals: * Physical Examination: Assessment: Plan: * Treatment: * Procedure Codes: * * Date:
--- OUTSIDE RECORDS SUMMARY | 2024-09-28 09:50 | XMS_ITS | Patient Health Record ---
Author Organization [facility] Address [address] [place] [address] Support Name Relationship Address Phone Herber Goodrich Guarantor Unknown Unavailable Reason For Referral No Information Problems Problem Type SNOMED Code ICD Code Onset Dates Problem Status W/U Status Risk Notes Problem Lumbar radiculopathy (360460736) Radiculopat hy, lumbar region (M54.16) 09/18/2015 Active confirmed Plan Of Treatment No Information Insurance Providers Payer Name Payer Address Payer Phone Subscriber Number Group Number Insured Name Patient Relationship to Insured Coverage Start Date Coverage End Date [id number] [place] [phone] [id number] [facility] Herber Goodrich Self - patient is the insured 4
--- OUTSIDE RECORDS SUMMARY | 2024-09-28 09:50 | XMS_ITS | Clinical Summary ---
Author Organization Healthcare Address [address] [place] [address] Care Team Providers Care Fabrication Technician Name Role Phone Lori Petersen APRN Primary Care Provider [phone] Social History Tobacco Use Types Packs/Day Years [...] Td Vaccine s (1 - Tdap) 09/22/1983 [facility]-Pap Smear 1985 [facility]-Cervical Cancer Screening 1994 [facility]-HPV/Cotest 1994 CT Colonography 2009 Colonoscopy 2009 FIT-DNA 2009 FIT 2009 FOBT 2009 Sigmoidoscopy 2009 [facility]-Colorectal Cancer Screening 2009 [facility]-Pneumococcal Vaccine: 50 + Years (1 of 1 - PCV) 2014 [facility]-Zoster Vaccines (1 of 2) 2014 [id number] Vaccine (1 - 20 24-25 season) 2023 [facility]-Influenza Vaccine (#1) 2024 [facility]-RSV Vaccine: 60+ Years o r (1 - 1-dose 75+ series) 09/22/2039 HPV Vaccines Aged Out No longer eligi [...] age to complete this topic Care Teams Fabrication Technician Relationship Specialty Start Date End Date Lori Petersen, FANY [address] [place] [address] PCP - General 07/02/22
[2024-09-28] MEDS: ALBUTEROL 0.083% 2.5 MG/3 ML NEB IH (10:10)
--- NOTE | 2024-09-28 10:11 | PC.NURSE ---
Pre and Post Spirometry completed without incident, Albuterol 0.083% given via HHN, per written protocol, Pt tolerated tx well. 6 Minute Walk completed, Pt tolerated well.
== END 2024-09-28 23:59 | disposition home or self-care (01) ==
LOC: RT 09:48
PROVIDERS: PCP Family Medicine; Visit Provider Internal Medicine Pulmonary Disease
DX: J44.9 Chronic obstructive pulmonary disease, unspecified (principal)
CPT/HCPCS: 94010; 94618

== ENCOUNTER 2024-10-02 09:00 | Outpatient (RCR) | payer OTHER, SELFPAY ==
--- NOTE | 2024-09-10 11:57 | HMH.PTOPWND ---
Rehab Outpt Wound Evaluation Rehab OP Wound Evaluation Start: 09/10/24 11:48 Freq: Status: Active Protocol: Document 09/10/24 11:49 TA (Rec: 09/10/24 11:57 [email or web address] [id number]) E-signed By Shola Gallardo, PT Subjective/History History History This is the initial PT wound care eval for Herber Goodrich, 58 yowf who presents with c/o L anterior rivera wound x ~ 1 mo S/P fall over a gate in her home with resulting skin tear/laceration. She reports her wound was much worse, but has been healing steadily. She has been using mupirocin ointment as prescribed by her physician . She reports most pain has dissipated and only mild tenderness to palpation remains. PMH of a-fib, asthma. Subjective Subjective Current pain 0/10, TTP 2/4 in michael-wound skin. Wound Eval Wound Left Anterior Rivera Wound Type Skin Tear Is This a Chronic Yes Wound Wound Length (cm) 9.4 Wound Width (cm) 4.0 Wound Depth (cm) 0.3 Wound Bed Appearance Beefy Red,Yellow Percentage 90 Granulated (%) Percentage of Slough 10 (%) Wound Margins Well Defined Description Surrounding Tissue [place] Appearance Drainage Description Serosanguineous Drainage Amount Moderate Drainage Odor No Odor Wound Topical Saline Irrigant Solution/Irrigant Primary Dressing collagen Comment puracol Wound Secondary Composite Dressing Type Comment large optifoam gentle border Wound Debridement Forceps,Gauze,Mechanical Method Wound Debridement Minimal Amount of Tissue Removed Dressing Change Tolerated Well Patient Tolerance Cortés-Duong Wound Assessment Tool Assessment Wound size 4=Length x Width 36.1--<80 sq cm Wound depth 3=Full thickness skin loss involving damage or necrosis of Wound edges 3=Well-defined, not attached to wound base Wound undermining 1=None present Necrotic tissue type 2=White/méndez non-viable tissue &/or non-adherent yellow slough Necrotic tissue 2=<25% of wound bed covered amount Exudate type 3=Serosanguineous: thin, watery, pale red/pink Exudate amount 4=Moderate Skin color 1=[place] or normal for ethnic group surrounding wound Peripheral tissue 2=Non-pitting edema extends <4 cm around wound edema Peripheral tissue 1=None present induration Granulation tissue 2=Bright, beefy red;75% to 100% of wound filled &/or tissue overgrowth Epithelialization 5= < 25% wound covered Wound assessment 33 total score Wound Problems/Impairments Impairments Problems/ Palpation Tenderness,Impaired Shower/Bathing,Impaired Impairmments Household Care,Impaired Recreational Activities,Wound Care Needs,Subjective C/O Pain,Impaired Self Care/Self Management Prognosis Rehab Potential Good Comment Skilled therapy is indicated to decrease overall wound surface area in order to aid pt healing and return pt to PLOF with all ADLs. Clinical Impression Consistent with Yes Diagnosis Short Term Goals Number of Weeks 2 Decreased Palpation Yes: 1/4 L rivera Tenderness Decrease Wound Area Yes: by 25% Usp Goals Number of Weeks 4 Decreased Palpation Yes: 0/4 L rivera Tenderness Decrease Wound Area Yes: by 75% Patient to be Ind w/ Yes Home Wound Care/ Dressing Changes Outpatient Therapy Plan of Care Treatment Plan May Include Therapeutic Exercise Yes Including Home Exercise Program Manual Therapy Yes Techniques Neuromuscular Re- Yes education Therapeutic Yes Activities to Return to Previous Functional/Work Level ADL/Self Care Yes Education Orthotics/Bracing/ Yes Splinting Wound Care Yes Eval/Re-Eval Yes Frequency Times per week 2 Duration Number of Weeks 4 Addendums This patient is a No candidate for social or vocational rehab ? Patient/Guardian Yes verbally acknowledges understanding of treatment program and consents to further treatment? Patient/Guardian Yes verbally acknowledges understanding of diagnosis, prognosis and goals for treatment? Eval Complexity PT Charges 33700 - High Complexity PHYSICIAN CERTIFICATION: I certify the specified therapy services for Herber Goodrich are required, authorized, and reviewed every 30 days.
== END 2024-10-02 23:59 | disposition home or self-care (01) ==
LOC: PT 09:00
PROVIDERS: Visit Provider Family Medicine
DX: S81.812A Laceration without foreign body, left lower leg, initial encounter (principal); S80.10XA Contusion of unspecified lower leg, initial encounter; W17.89XA Other fall from one level to another, initial encounter
CPT/HCPCS: 97163; 97597; 97598

== ENCOUNTER 2024-10-05 13:45 | Outpatient (CLI) | payer OTHER, SELFPAY ==
--- OUTSIDE RECORDS SUMMARY | 2023-07-30 05:00 | XMS_ITS ---
Author Organization [facility] Address [address] [place] [address] Care Team Providers Care Belt Sander Name Role Phone Migration, Provider Unavailable Unavailable REASON FOR VISIT EMR-Carlos Encounters Encounter Location Date Provider Diagnosis [facility] [address] [place] [address] 07/30/2023 Provider Migration Plan Of Treatment No Information Progress Notes * Herber GOODRICHDOB:1965 (59 yo F)Acc No.[id number]:07/30/2023 Patient: Rohini Herber BRADFORD :1965 A ge:57 Y S ex:Female Phone: Address:[address] [place] [address], [phone] Subjective: * Chief Complaints: * E MR-Carlos * Medical History: * Surgical History: * Hospitalization/Major Diagno stic Procedure: * Medications: Objective: * Vitals: * Physical Examination: Assessment: Plan: * Treatment: * Procedure Codes: * * Date:
--- OUTSIDE RECORDS SUMMARY | 2023-07-31 05:00 | XMS_ITS ---
Author Organization [facility] Address [address] [place] [address] Care Team Providers Care Principal Systems Engineer Name Role Phone Migration, Provider Unavailable Unavailable REASON FOR VISIT EMR-Carlos Encounters Encounter Location Date Provider Diagnosis [facility] [address] [place] [address] 07/31/2023 Provider Migration Plan Of Treatment No Information Progress Notes * Herber GOODRICHDOB:1965 (59 yo F)Acc No.[id number]:07/31/2023 Patient: Rohini Herber BRADFORD :1965 A ge:57 Y S ex:Female Phone: Address:[address] [place] [address], [phone] Subjective: * Chief Complaints: * E MR-Carlos * Medical History: * Surgical History: * Hospitalization/Major Diagno stic Procedure: * Medications: Objective: * Vitals: * Physical Examination: Assessment: Plan: * Treatment: * Procedure Codes: * * Date:
--- OUTSIDE RECORDS SUMMARY | 2024-10-05 13:46 | XMS_ITS | Continuity of Care Document ---
Author Name [facility] Organization [facility] Care Team Providers Care Accounting Consultant Name Role Phone [facility] Unavailable Unavailable Medications Combined list of outpatient medications from Department of Defense and Veterans Affairs facilities.Medications provided include 1) outpatient medications from the last 15 months, and 2) patient-reported medications. Medication Details Route Status Patient Instructions Prescription Expires Prescription Number Last Dispense Date Ordering Provider Order Date Order Qty Source CICLOPIROX (CICLOPIROX ), 8%, SOLUTION, TOPICAL, PERRIGO CO., 6.6 ml BOTTLE Cancele d [id number] : 2023 0 Pharmac y Data Transac tion Service Facilit y HYDROCODONE -ACETAMINOP HEN (HYDROCODON E/ACETAMINO PHEN), 10MG-325MG, TABLET, ORAL, MALLINCKROD T PH, 500 ea. BOTTLE Active [id number] 4 2023 120 Pharmac y Data Transac tion Service Facilit y HYDROCODONE -ACETAMINOP HEN (HYDROCODON E/ACETAMINO PHEN), 10MG-325MG, TABLET, ORAL, MALLINCKROD T PH, 500 ea. BOTTLE Cancele d [id number] : 2023 0 Pharmac y Data Transac tion Service Facilit y HYDROCODONE -ACETAMINOP HEN (HYDROCODON E/ACETAMINO PHEN), 10MG-325MG, TABLET, ORAL, MALLINCKROD T PH, 500 ea. BOTTLE Active [id number] 4 2023 120 Pharmac y Data Transac tion Service Facilit y OZEMPIC (semaglutid e), .25 OR 0.5, PEN INJCTR, SUBCUT, PAM NORDISK, 3 ml SYRINGE Cancele d [id number] : 2023 0 Pharmac y Data Transac tion Service Facilit y PREMARIN (ESTROGENS, CONJUGATED) , 0.625MG, TABLET, ORAL, WYETH PHARM, 1000 ea. BOTTLE Active [id number] 4 2023 90 Pharmac y Data Transac tion Service Facilit y ZOLPIDEM TARTRATE (ZOLPIDEM TARTRATE), 10MG, TABLET, ORAL, AUROBINDO PHARM, 100 ea. BOTTLE Cancele d [id number] : 2023 0 Pharmac y Data Transac tion Service Facilit y Immunizations Combined list of available immunizations from the Department of Defense and Veterans Affairs facilities. Immunization Series Date Given Administered By Site Reaction Lot Number CVX Code Drug [employer] Teacher Status Comments Source COVID-19, mRNA, LNP-S, PF, 100 mcg or 50 mcg dose 2021 CAMARCE,STEVEN () Not Given COVID-19, mRNA, LNP-S, PF, 100 mcg or 50 mcg dose DoD Influenza, injectable, MDCK, preservative free, quadrivalent 2021 CAMARCE,STEVEN () Not Given Influenza , injectabl e, MDCK, preservat bart free, quadrival ent DoD COVID-19, mRNA, LNP-S, PF, 100 mcg or 50 mcg dose 2020 CAMARCE,STEVEN () Not Given COVID-19, mRNA, LNP-S, PF, 100 mcg or 50 mcg dose DoD COVID-19, mRNA, LNP-S, PF, 100 mcg or 50 mcg dose 2020 CAMARCE,STEVEN () Not Given COVID-19, mRNA, LNP-S, PF, 100 mcg or 50 mcg dose DoD Social History Combined list of available smoking, tobacco, and other social history from Department of Defense and Veterans Affairs facilities. Social History Type Response Date Comment Sour e This section is an empty social history section. [facility]
--- OUTSIDE RECORDS SUMMARY | 2024-10-05 13:47 | XMS_ITS | Clinical Summary ---
Author Organization Healthcare Address [address] [place] [address] Care Team Providers Care Directional Bore Operator Name Role Phone Lori Petersen APRN Primary Care Provider [phone] Social History Tobacco Use Types Packs/Day Years Used Date Smoking Tobacco: Never Assessed Comments Unknown Sex and Gender Information Value Date Recorded Sex Assigned at Not on file Legal Sex Female 4:51 PM EDT Gender Identity Not on file Sexual Orientation Not on file Plan of Treatment Health Maintenance Due Date Last Done Comments [facility]-Depression Screening 1964 [facility]-Infant/Child/Adol SDOH Screenings 1964 [facility]- SDOH Screenings 1982 [facility]-Adult SDOH Screenings 1982 [facility]-DTaP,Tdap,and Td Vaccine s (1 - Tdap) 09/22/1983 [facility]-Pap Smear 1985 [facility]-Cervical Cancer Screening 1994 [facility]-HPV/Cotest 1994 CT Colonography 2009 Colonoscopy 2009 FIT-DNA 2009 FIT 2009 FOBT 2009 Sigmoidoscopy 2009 [facility]-Colorectal Cancer Screening 2009 [facility]-Pneumococcal Vaccine: 50 + Years (1 of 1 - PCV) 2014 [facility]-Zoster Vaccines (1 of 2) 2014 [id number] Vaccine (1 - 20 24-25 season) 2023 [...] age to complete this topic Care Teams Directional Bore Operator Relationship Specialty Start Date End Date Lori Petersen, FANY [address] [place] [address] PCP - General 07/02/22
--- OUTSIDE RECORDS SUMMARY | 2024-10-05 13:47 | XMS_ITS | Patient Health Record ---
Author Organization [facility] Address [address] [place] [address] Support Name Relationship Address Phone Herber Goodrich Guarantor Unknown Unavailable Reason For Referral No Information Problems Problem Type SNOMED Code ICD Code Onset Dates Problem Status W/U Status Risk Notes Problem Lumbar radiculopathy ([id number]) Radiculopat hy, lumbar region (M54.16) 09/18/2015 Active confirmed Plan Of Treatment No Information Insurance Providers Payer Name Payer Address Payer Phone Subscriber Number Group Number Insured Name Patient Relationship to Insured Coverage Start Date Coverage End Date [id number] [place] [phone] [id number] [facility] Herber Goodrich Self - patient is the insured 4
--- NOTE | 2024-10-05 14:00 | MM_ITS ---
PROCEDURE INFORMATION: Exam: MG Bilateral Screening 3D Mammography Exam date and time: 10/05/2024 2:02 PM Age: 59 years old Clinical indication: Screening examination TECHNIQUE: Imaging protocol: Bilateral Screening tomosynthesis and 2D mammography including computer-aided detection (CAD) when performed. COMPARISON: 1. MG MM DIG SCREENING MAMM BI W/CAD 01/20/2023 9:46 AM 2. MG MA Mammogram Screening Digital with CAD-Bilateral 09/29/2021 8:07 AM FINDINGS: MAMMOGRAPHY: Breast composition: There are scattered areas of fibroglandular density. Mass: None. Architectural distortion: None. Calcifications: No suspicious calcifications. Asymmetric density: None. Skin thickening: None. Axillary adenopathy: None. IMPRESSION: No mammographic evidence of malignancy. Annual screening is recommended unless otherwise clinically indicated. ASSESSMENT: BI-RADS Category 1: Negative.
== END 2024-10-05 23:59 | disposition home or self-care (01) ==
LOC: RAD 13:45
PROVIDERS: PCP Family Medicine; Visit Provider Family Medicine
DX: Z12.31 Encounter for screening mammogram for malignant neoplasm of breast (principal); R92.323 Mammographic fibroglandular density, bilateral breasts
CPT/HCPCS: 77063; 77067

== ENCOUNTER 2024-10-09 08:38 | Outpatient (CLI) | payer OTHER, SELFPAY ==
--- OUTSIDE RECORDS SUMMARY | 2023-07-30 05:00 | XMS_ITS ---
Author Organization [facility] Address [address] [place] [address] Care Team Providers Care Leases And Land Supervisor Name Role Phone Migration, Provider Unavailable Unavailable REASON FOR VISIT EMR-Carlos Encounters Encounter Location Date Provider Diagnosis [facility] [address] [place] [address] 07/30/2023 Provider Migration Plan Of Treatment No Information Progress Notes * Herber GOODRICHDOB:1965 (59 yo F)Acc No.[id number]:07/30/2023 Patient: Rohini Herber BRADFORD :1965 A ge:57 Y S ex:Female Phone: Address:[address] [place] [address], [id number] Subjective: * Chief Complaints: * E MR-Carlos * Medical History: * Surgical History: * Hospitalization/Major Diagno stic Procedure: * Medications: Objective: * Vitals: * Physical Examination: Assessment: Plan: * Treatment: * Procedure Codes: * * Date:
--- OUTSIDE RECORDS SUMMARY | 2023-07-31 05:00 | XMS_ITS ---
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 Role Phone Migration, Provider Unavailable Unavailable REASON FOR VISIT EMR-Carlos Encounters Encounter Location Date Provider Diagnosis [facility] [address] [place] [address] 07/31/2023 Provider Migration Plan Of Treatment No Information Progress Notes * Herber GOODRICHDOB:1965 (59 yo F)Acc No.[id number]:07/31/2023 Patient: Rohini Herber BRADFORD :1965 A ge:57 Y S ex:Female Phone: Address:[address] [place] [address], [phone] Subjective: * Chief Complaints: * E MR-Carlos * Medical History: * Surgical History: * Hospitalization/Major Diagno stic Procedure: * Medications: Objective: * Vitals: * Physical Examination: Assessment: Plan: * Treatment: * Procedure Codes: * * Date:
--- OUTSIDE RECORDS SUMMARY | 2024-10-08 09:32 | XMS_ITS | Continuity of Care Document ---
Author Name [facility] Organization [facility] Care Team Providers Care Developer Prover Mechanical Name Role Phone [facility] Unavailable Unavailable Medications Combined list of outpatient medications from Department of Defense and Veterans Affairs facilities.Medications provided include 1) outpatient medications from the last 15 months, and 2) patient-reported medications. Medication Details Route Status Patient Instructions Prescription Expires Prescription Number Last Dispense Date Ordering Provider Order Date Order Qty Source CICLOPIROX (CICLOPIROX ), 8%, SOLUTION, TOPICAL, PERRIGO CO., 6.6 ml BOTTLE Cancele d [id number] : 2023 0 Pharmac y Data Transac tion Service Facilit y HYDROCODONE -ACETAMINOP HEN (HYDROCODON E/ACETAMINO PHEN), 10MG-325MG, TABLET, ORAL, MALLINCKROD T PH, 500 ea. BOTTLE Active [id number] 4 2023 120 Pharmac y Data Transac tion Service Facilit y HYDROCODONE -ACETAMINOP HEN (HYDROCODON E/ACETAMINO PHEN), 10MG-325MG, TABLET, ORAL, MALLINCKROD T PH, 500 ea. BOTTLE Cancele d [id number] : 2023 0 Pharmac y Data Transac tion Service Facilit y HYDROCODONE -ACETAMINOP HEN (HYDROCODON E/ACETAMINO PHEN), 10MG-325MG, TABLET, ORAL, MALLINCKROD T PH, 500 ea. BOTTLE Active [id number] 4 2023 120 Pharmac y Data Transac tion Service Facilit y OZEMPIC (semaglutid e), .25 OR 0.5, PEN INJCTR, SUBCUT, PAM NORDISK, 3 ml SYRINGE Cancele d [id number] : 2023 0 Pharmac y Data Transac tion Service Facilit y PREMARIN (ESTROGENS, CONJUGATED) , 0.625MG, TABLET, ORAL, WYETH PHARM, 1000 ea. BOTTLE Active [id number] 4 2023 90 Pharmac y Data Transac tion Service Facilit y ZOLPIDEM TARTRATE (ZOLPIDEM TARTRATE), 10MG, TABLET, ORAL, AUROBINDO PHARM, 100 ea. BOTTLE Cancele d [id number] : 2023 0 Pharmac y Data Transac tion Service Facilit y Immunizations Combined list of available immunizations from the Department of Defense and Veterans Affairs facilities. Immunization Series Date Given Administered By Site Reaction Lot Number CVX Code Drug Cafe Manager Status Comments Source COVID-19, mRNA, LNP-S, PF, [...] section is an empty social history section. [facility]
--- OUTSIDE RECORDS SUMMARY | 2024-10-09 08:42 | XMS_ITS | Clinical Summary ---
Author Organization Healthcare Address [address] [place] [address] Care Team Providers Care Ward Service Supervisor Name Role Phone Lori Petersen APRN Primary Care Provider [phone] Social History Tobacco Use Types Packs/Day Years [...] 2014 UKY-Zoster Vaccines (1 of 2) 2014 [id number] Vaccine (1 - 20 24-25 season) 2023 [...] age to complete this topic Care Teams Ward Service Supervisor Relationship Specialty Start Date End Date Lori Petersen, FANY [address] [place] [address] PCP - General 07/02/22
--- OUTSIDE RECORDS SUMMARY | 2024-10-09 08:42 | XMS_ITS | Patient Health Record ---
Author Organization [facility] Address [address] [place] [address] Support Name Relationship Address Phone Herber Goodrich Guarantor Unknown Unavailable Reason For Referral No Information Problems Problem Type SNOMED Code ICD Code Onset Dates Problem Status W/U Status Risk Notes Problem Lumbar radiculopathy (382914366) Radiculopat hy, lumbar region (M54.16) 09/18/2015 Active confirmed Plan Of Treatment No Information Insurance Providers Payer Name Payer Address Payer Phone Subscriber Number Group Number Insured Name Patient Relationship to Insured Coverage Start Date Coverage End Date [id number] [place] [phone] [id number] [facility] Herber Goodrich Self - patient is the insured 4
[2024-10-09 09:18] LABS: Hematocrit 37.1 % (37.0-47.0); Hemoglobin 12.1 g/dL (12.2-16.2); Immature Granulocytes % 0.2 %; Mean Corpuscular HGB Conc 32.6 g/dL (31.8-35.4); Mean Corpuscular Hemoglobin 32.2 pg (27.0-31.2); Mean Corpuscular Volume 98.7 fl (81-99); Nucleated Red Blood Cells % 0 %; Platelet Count 270 K/mm3 (142-424); Red Blood Count 3.76 M/mm3 (4.20-5.40); Red Cell Distribution Width-SD 48.3 fL; White Blood Count 6.3 K/mm3 (4.8-10.8)
[2024-10-09 09:39] LABS: Albumin Level 3.3 g/dl (3.5-5.0); Chloride 103 mmol/L (98-107); Potassium 4.2 mmoL/L (3.5-5.1); Sodium 135 mmol/L (136-145)
[2024-10-09 09:42] LABS: Alanine Aminotransferase 24 U/L (12-78); Albumin/Globulin Ratio 1.0 (1.1-1.8); Alkaline Phosphatase 87 U/L (38-126); Anion Gap 6.2 mEq/L (5-15); Aspartate Amino Transferase 42 U/L (14-36); Bilirubin,Total 0.4 mg/dl (0.2-1.3); Blood Urea Nitrogen 12 mg/dl (7-17); Calcium 9.2 mg/dl (8.4-10.2); Carbon Dioxide 30 mmol/L (22.0-30.0); Cholesterol 154 mg/dl (140-200); Creatinine,Serum 0.50 mg/dl (0.52-1.04); Estimated Glomerular Filt Rate 126 ml/min (>60); GFR (African American) 152 ML/MIN (>60); Globulin 3.3 g/dL (1.3-3.2); Glucose 89 mg/dl (74-100); Total Protein,Serum 6.6 g/dl (6.3-8.2); Triglycerides 152 mg/dl (30-150)
[2024-10-09 09:43] LABS: HDL Cholesterol 54 mg/dl (40-60)
[2024-10-09 10:41] LABS: Hemoglobin A1C 4.5 % (4.0-6.0)
[2024-10-13 07:10] LABS: I006-IgE Cockroach, German <0.10 kU/L (Class 0); T006-IgE Cedar, Mountain <0.10 kU/L (Class 0); T007-IgE Oak, White <0.10 kU/L (Class 0); T008-IgE Elm, American <0.10 kU/L (Class 0); T015-IgE Ash, White <0.10 kU/L (Class 0); T022-IgE Pecan, Hickory <0.10 kU/L (Class 0); W001-IgE Ragweed, Short <0.10 kU/L (Class 0); W011-IgE Thistle, Russian <0.10 kU/L (Class 0); W014-IgE Pigweed, Common <0.10 kU/L (Class 0)
== END 2024-10-09 23:59 | disposition home or self-care (01) ==
LOC: LAB 08:39
PROVIDERS: Internal Medicine Pulmonary Disease; PCP Family Medicine; Visit Provider Family Medicine
DX: S80.10XA Contusion of unspecified lower leg, initial encounter (principal); E66.9 Obesity, unspecified; E11.9 Type 2 diabetes mellitus without complications; J30.9 Allergic rhinitis, unspecified
CPT/HCPCS: 36415; 80053; 80061; 82785; 83036; 85025; 86003

== ENCOUNTER 2024-10-22 10:07 | Outpatient (POV) | payer OTHER, SELFPAY ==
--- OUTSIDE RECORDS SUMMARY | 2023-07-30 05:00 | XMS_ITS ---
Author Organization [facility] Address [address] [place] [address] Care Team Providers Care Social Work Instructor Name Role Phone Migration, Provider Unavailable Unavailable REASON FOR VISIT EMR-Carlos Encounters Encounter Location Date Provider Diagnosis [facility] [address] [place] [address] 07/30/2023 Provider Migration Plan Of Treatment No Information Progress Notes * Herber GOODRICHDOB:1965 (59 yo F)Acc No.[id number]:07/30/2023 Patient: Rohini Herber BRADFORD :1965 A ge:57 Y S ex:Female Phone: Address:[address] [place] [address], [phone] Subjective: * Chief Complaints: * E MR-Carlos * Medical History: * Surgical History: * Hospitalization/Major Diagno stic Procedure: * Medications: Objective: * Vitals: * Physical Examination: Assessment: Plan: * Treatment: * Procedure Codes: * * Date:
--- OUTSIDE RECORDS SUMMARY | 2023-07-31 05:00 | XMS_ITS ---
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 Name Role Phone Migration, Provider Unavailable Unavailable REASON FOR VISIT EMR-Carlos Encounters Encounter Location Date Provider Diagnosis [facility] [address] [place] [address] 07/31/2023 Provider Migration Plan Of Treatment No Information Progress Notes * Herber GOODRICHDOB:1965 (59 yo F)Acc No.[id number]:07/31/2023 Patient: Rohini Herber BRADFORD :1965 A ge:57 Y S ex:Female Phone: Address:[address] [place] [address], [phone] Subjective: * Chief Complaints: * E MR-Carlos * Medical History: * Surgical History: * Hospitalization/Major Diagno stic Procedure: * Medications: Objective: * Vitals: * Physical Examination: Assessment: Plan: * Treatment: * Procedure Codes: * * Date:
--- NOTE | 2024-10-22 10:10 | A.OFFVIS_ITS ---
[facility] Disclaimer: The information contained in this section may have been updated after the patient was seen, as this information can be updated by other users. Medical History Tubular adenoma of colon colonoscopy, September 2024 DDD (degenerative disc disease) Chronic pain Diabetes mellitus Breast cancer screening by mammogram Anxiety and depression HTN (hypertension) Insomnia Lumbar radiculopathy Eosinophilic asthma Uncontrolled asthma Current use of retirement anticoagulation GERD (gastroesophageal reflux disease) Allergic rhinitis Paroxysmal A-fib Heart failure with reduced ejection fraction Echocardiogram abnormal 12/2019. LV size was mildly dilated, normal wall thickness, LVEF 30-35%, severe global hypokinesis, elevated LVEDP, mild RVE, mild LA/ERNIE, moderate MR, mild TR, dilated IVC, RVSP 47 mmHg H/O cardiovascular stress test 04/2020 LV perfusion normal. LVEF 62% Afib Asthma Surgical History Hx of tonsillectomy age 4 H/O colonoscopy ~2015 WNL S/P ORIF (open reduction internal fixation) fracture left knee History of partial hysterectomy Family History Father Diabetes Cancer colon Hypertension Social History Smoking Status: Never smoker alcohol intake: current alcohol intake frequency: holidays/special occasions only substance use type: denies use current occupational status: other Travel in the last 8 weeks?: None household members: spouse housing: house marital status: number of children: 3 current occupation: retired Have you lived/traveled outside US in past 30 days?: No Contact w/someone who lives/traveled outside US past 30 days?: No Exposure to someone with infectious disease in past 14 days?: No Do you have a fever (greater than 100.4 F or 38 C)?: No Have you tested positive for COVID-19?: No Exposed to someone with COVID-19 in past 14 days?: No Do you have a sore throat?: No Do you have a cough?: No Do you have any weakness?: No Do you have any diarrhea?: No Are you experiencing any unusual bleeding?: No Do you have any muscle aches/pain?: No Do you have any abdominal pain?: No Are you experiencing loss of taste or smell?: No PM Subjective & Objective Subjective Subjective:: Patient is a pleasant 59-year-old female who presents today for worsening back pain. She does state that she has had a fall from her last appointment however it was related to a puppy that she ended up tripping and scraped the front of her left leg. Patient denies any significant injury. She rates her pain today at a 6 out of 10. Patient does state this pain is still the same pain she has been having there in her low back and does radiate into her legs with numbness and tingling. She does feel like her last injection has officially worn off and would like to go ahead and get scheduled for another injection. Patient states the pain is interfering with her ability to perform activities of daily living such as cooking and cleaning. Patient had her last lumbar epidural in April that did provide at least 60% relief and lasted longer than 3 months. Her Angel has been reviewed and is appropriate. Review of Systems: General: No recent weight changes, no fever, no sleep disturbances Respiratory: No cough, no shortness of air, no recurring pulmonary infections Cardiovascular/peripheral vascular: No chest pain, no palpitations, no edema, no shortness of breath Gastrointestinal: No new onset incontinence, normal bowel movements reported Genitourinary: No new onset incontinence Musculoskeletal: Low back pain, leg pain Psychiatric: [Normal mood/affect] Neurological: [Denies weakness in extremities], [denies balance issues] Pain at rest (0-10 scale): 6 Objective Objective:: Physical Exam: General: Alert and oriented x3, no acute distress, pleasant and cooperative Lungs: Respirations even and unlabored, symmetrical chest expansion Eyes: PERRL Musculoskeletal: Flexion and extension of lumbar [spine] somewhat guarded secondary to pain, positive leg raise Neurological: Speech clear, no gross sensory deficit Has patient had previous pain injection?: No Conservative treatment options previously tried: Home exercise plan Length of treatment: Longer than 12 weeks Meds Home Medications and Allergies Home Medications ?Medication ?Instructions ?Recorded ?Confirmed ?Type multivitamin 1 tab PO DAILY SUPPLIMENT 10/08/24 History blood sugar diagnostic (FreeStyle 07/05/22 10/08/24 H istory Lite Strips) blood-glucose meter (FreeStyle 07/05/22 10/08/24 Hist ory Lite Meter kit) albuterol sulfate 90 mcg/actuation 2 inh inhalation Q6 H PRN shortness 08/04/22 10/08/24 Rx aerosol inhaler of breath or wheezing 90 day s #8.5 grams levalbuterol tartrate 45 45 mcg inhalation DIRECTE D 03/24/23 10/08/24 History mcg/actuation aerosol inhaler Breathing Problems (Xopenex HFA) ipratropium 0.5 mg-albuterol 3 mg 3 ml inhalation Q6H PRN shortness 10/13/23 10/08/24 Rx (2.5 mg base)/3 mL nebulization of breath or wheezing #90 mL soln fluticasone fur. 200 mcg-umeclid 1 inh inhalation BARBI Y 90 days #90 01/02/24 10/08/24 Rx 62.5 mcg-vilant 25 mcg ea inhalat.powder (Trelegy Ellipta) sotalol 120 mg tablet (Betapace) 120 mg PO BID BLOOD P RESSURE #180 01/06/24 10/08/24 Rx tabs lisinopril 20 mg tablet 20 mg PO DAILY BLOOD PRESSUR E #90 07/09/24 10/08/24 Rx tabs semaglutide 2 mg/dose (8 mg/3 mL) 2 mg (0.75 mL) SQ WE EKLY #3 mL 07/09/24 10/08/24 Rx subcutaneous pen injector metoprolol tartrate 25 mg tablet 25 mg PO DAILY PRN pa lpitations 09/03/2406/29 Rx #30 tabs apixaban 5 mg tablet (Eliquis) 5 mg PO BID Blood thinn er 90 days 09/10/24 10/08/24 Rx #180 tabs escitalopram oxalate 20 mg tablet 20 mg PO DAILY MOOD #90 tabs 09/10/24 10/08/24 Rx (Lexapro) montelukast 10 mg tablet 10 mg PO HS ALLERGIES #90 ta bs 09/10/24 10/08/24 Rx (Singulair) [id number] 140 gram-sod sulfate 9 500 ml PO .COMPLEX colo nscopy #3 ea 09/14/24 10/08/24 Rx gram-NaCl 5.2gram-KCl-C oral pwdr packs (Plenvu) benralizumab 30 mg/mL subcutaneous 30 mg SQ Q90MIN 10/08/24 History auto-injector (Fasenra Pen) hydrocodone 10 mg-acetaminophen 1 tab PO Q6H PRN pain #120 tabs 10/03/24 10/08/24 Rx 325 mg tablet conjugated estrogens 0.625 mg See Rx Instructions .Rou te 10/08/24 Rx tablet (Premarin) .COMPLEX #90 tabs lorazepam 2 mg tablet 2 mg PO HS PRN sleep #30 tab s 10/08/24 10/08/24 Rx New Prescriptions to Start Prescriptions: Allergies Allergy/AdvReac Type Severity Reaction Status Date / Time ibuprofen Allergy Severe Anaphylaxis Verified 10/08/24 09:55 sulfamethoxazole (From Allergy Severe Swelling Verified 10/08/24 09:55 Bactrim) of Lip/Tongue/Throat trimethoprim (From Bactrim) Allergy Severe Swelling Verified 10/08/24 09:55 of Lip/Tongue/Throat bacitracin (From Neosporin Allergy Intermediate Rash Verified 10/08/24 09:55 ([id number])) metformin Allergy Intermediate Diarrhea Verified 10/08/24 09:55 neomycin (From Neosporin Allergy Intermediate Rash Verified 10/08/24 09:55 ([id number])) polymyxin B (From Neosporin Allergy Intermediate Rash Verified 10/08/24 09:55 ([id number])) Sulfa (Sulfonamide Allergy Nausea Verified 10/08/24 09:55 Antibiotics) Assessment and Plan *Assessment and plan (1) Lumbar radiculopathy: Status: Acute Category: Medical Code(s): M54.16 - Radiculopathy, lumbar region (2) Chronic pain: Status: Chronic Category: Medical Code(s): G89.29 - Other chronic pain (3) Low back pain: Status: Chronic Qualifiers: Chronicity: chronic Back pain laterality: midline Sciatica presence: with sciatica Sciatica laterality: sciatica laterality unspecified Qualified Code(s): M54.40 - Lumbago with sciatica, unspecified side; G89.29 - Other chronic pain Category: Medical Code(s): M54.50 - Low back pain, unspecified Plan Patient is experiencing worsening pain in her low back with numbness and tingling into her lower extremities. Patient did have limited range of motion of her lumbar spine with a positive leg raise. I did discuss with patient that I do believe they would benefit from a lumbar epidural steroid injection. Risk and benefits were discussed with patient and the patient would like to proceed forward with this plan of care. Patient is on blood thinners written by Dr Alanis. We will reach out to this office and confirm that she can stop taking this medication prior to this procedure. Patient acknowledges understanding agrees with plan of care. Patient has tried and failed conservative therapy including oral medications, heat and ice, topicals and continued at home stretching exercise for longer than 12 weeks between injections. Patient has had chronic back pain for longer than 6 months. Patient did previously have a lumbar epidural back in April that provided 60% relief and lasted longer than 3 months. We will schedule the patient for an LESI L4-L5 under fluoroscopy. Patient has been instructed to contact the clinic with any concerns before the next appointment. Dr. Jones has reviewed this note and agrees with this plan of care. This note was dictated using voice recognition software and make contain errors or omissions. All injections are used with Lidocaine, Bupivacaine and dexamethasone. Occasionally urine drug screen is needed to verify patient's compliance with our office pain contract. This is ordered based off specific treatments related to chronic pain with the potential to abuse certain medications.
--- OUTSIDE RECORDS SUMMARY | 2024-10-22 10:10 | XMS_ITS | Continuity of Care Document ---
Author Name [facility] Organization [facility] Care Team Providers Care Machine Slat Basket Maker Name Role Phone [facility] Unavailable Unavailable Medications Combined list of outpatient medications from Department of Defense and Veterans Affairs facilities.Medications provided include 1) outpatient medications from the last 15 months, and 2) patient-reported medications. Medication Details Route Status Patient Instructions Prescription Expires Prescription Number Last Dispense Date Ordering Provider Order Date Order Qty Source CICLOPIROX (CICLOPIROX ), 8%, SOLUTION, TOPICAL, PERRIGO CO., 6.6 ml BOTTLE Cancele d [id number] : 2023 0 Pharmac y Data Transac tion Service Facilit y HYDROCODONE -ACETAMINOP HEN (HYDROCODON E/ACETAMINO PHEN), 10MG-325MG, TABLET, ORAL, MALLINCKROD T PH, 500 ea. BOTTLE Active [id number] 4 2023 120 Pharmac y Data Transac tion Service Facilit y HYDROCODONE -ACETAMINOP HEN (HYDROCODON E/ACETAMINO PHEN), 10MG-325MG, TABLET, ORAL, MALLINCKROD T PH, 500 ea. BOTTLE Cancele d [id number] : 2023 0 Pharmac y Data Transac tion Service Facilit y HYDROCODONE -ACETAMINOP HEN (HYDROCODON E/ACETAMINO PHEN), 10MG-325MG, TABLET, ORAL, MALLINCKROD T PH, 500 ea. BOTTLE Active [id number] 4 2023 120 Pharmac y Data Transac tion Service Facilit y OZEMPIC (semaglutid e), .25 OR 0.5, PEN INJCTR, SUBCUT, PAM NORDISK, 3 ml SYRINGE Cancele d [id number] : 2023 0 Pharmac y Data Transac tion Service Facilit y PREMARIN (ESTROGENS, CONJUGATED) , 0.625MG, TABLET, ORAL, WYETH PHARM, 1000 ea. BOTTLE Active [id number] 4 2023 90 Pharmac y Data Transac tion Service Facilit y ZOLPIDEM TARTRATE (ZOLPIDEM TARTRATE), 10MG, TABLET, ORAL, AUROBINDO PHARM, 100 ea. BOTTLE Cancele d [id number] : 2023 0 Pharmac y Data Transac tion Service Facilit y Immunizations Combined list of available immunizations from the Department of Defense and Veterans Affairs facilities. 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 [facility]
--- OUTSIDE RECORDS SUMMARY | 2024-10-22 10:13 | XMS_ITS | Patient Health Record ---
Author Organization [facility] Address [address] [place] [address] Support Name Relationship Address Phone Herber Goodrich Guarantor Unknown Unavailable Reason For Referral No Information Problems Problem Type SNOMED Code ICD Code Onset Dates Problem Status W/U Status Risk Notes Problem Lumbar radiculopathy ([id number]) Radiculopat hy, lumbar region (M54.16) 09/18/2015 Active confirmed Plan Of Treatment No Information Insurance Providers Payer Name Payer Address Payer Phone Subscriber Number Group Number Insured Name Patient Relationship to Insured Coverage Start Date Coverage End Date [id number] [place] [phone] [id number] [facility] Herber Goodrich Self - patient is the insured 4
--- OUTSIDE RECORDS SUMMARY | 2024-10-22 10:13 | XMS_ITS | Clinical Summary ---
Author Organization Healthcare Address [address] [place] [address] Care Team Providers Care Electronics Teacher Name Role Phone Lori Petersen APRN Primary Care Provider [phone] Social History Tobacco Use Types Packs/Day Years [...] 2014 UKY-Zoster Vaccines (1 of 2) 2014 [id number] Vaccine (1 - 20 24-25 season) 2023 [...] age to complete this topic Care Teams Electronics Teacher Relationship Specialty Start Date End Date Lori Petersen, FANY [address] [place] [address] PCP - General 07/02/22
[2024-10-22 11:23] VITALS: BP 117/76; PULSE 70; RESP 18; BMI 28.4
== END 2024-10-22 23:59 | disposition home or self-care (01) ==
LOC: SC.PAIN 10:08
PROVIDERS: PCP Family Medicine; Visit Provider Nurse Practitioner Family
DX: M54.40 Lumbago with sciatica, unspecified side (principal); G89.29 Other chronic pain
CPT/HCPCS: 99212; G0463

== ENCOUNTER 2024-10-30 08:00 | Outpatient (RCR) | payer OTHER, SELFPAY ==
--- NOTE | 2024-10-09 10:47 | HMH.RHREAS ---
Rehab Reassessment Rehab OP Re-assessment Start: 10/09/24 10:21 Freq: Status: Active Protocol: Document 10/09/24 10:33 TA (Rec: 10/09/24 10:47 PHORSHAHRAM [id number]) E-signed By Shola Gallardo, PT Jean Wound Assessment Tool Assessment Wound size 2=Length x Width 4--<16 sq cm Wound depth 3=Full thickness skin loss involving damage or necrosis of Wound edges 2=Distinct, outline clearly visible, attached, even with wound base Wound undermining 1=None present Necrotic tissue type 1=Non visible Necrotic tissue 1=None visible amount Exudate type 3=Serosanguineous: thin, watery, pale red/pink Exudate amount 3=Small Skin color 1=[place] or normal for ethnic group surrounding wound Peripheral tissue 1=No swelling or edema edema Peripheral tissue 1=None present induration Granulation tissue 2=Bright, beefy red;75% to 100% of wound filled &/or tissue overgrowth Epithelialization 3=50% to <75% wound covered &/or epithelial tissue extends to < 0.5cm Wound assessment 24 total score Rehab Re-assessment Subjective Subjective Pt has no c/o pain at this time and feels she is steadily seeing improvement in her L denis wound. She is having no difficulty with home dressing changes at this time. Objective Objective Notes L anterior denis wound: L= 6.5 cm, W= 2.4 cm, D= 0.1 cm wound is 58% healed surface area at this time vs IE. TTP: michael-wound skin TTP is 1/4 Assessment Progress Assessment Progressing as Expected Assessment Notes Pt has shown significant improvement in overall total wound surface area with reduction of necrotic tissue. Skilled therapy services remain indicated to aid further wound healing on order to improve pt QOL and return her to independence with all ADLs. Patient goals met STG (in 2 weeks pt will): 1) Reduce TTP to 1/4 in L denis - MET 2) Reduce total wound surface are by 25% - MET LTG (in 4 weeks pt will): 1) Reduce TTP to 0/4 in L denis - NOT MET - Remains Active 2) Reduce total wound surface are by 75% - NOT MET - Remains Active Revised Goals STG (in 2 weeks pt will): 3) Reduce total wound surface are by 65% Plan Plan Continue with POC as indicated via: Frequency of Therapy 1 x/wk Duration of Therapy 4 wks Wound Care Yes Eval/Re-Eval Yes Time and Billing Re-Eval Time 14 Re-Eval Billing 1 Units Charge for PT Yes reassessment? PHYSICIAN CERTIFICATION: I certify the specified therapy services for Herber Goodrich are required, authorized, and reviewed every 30 days.
== END 2024-10-30 23:59 | disposition home or self-care (01) ==
LOC: PT 08:00
PROVIDERS: Visit Provider Family Medicine
DX: S81.812A Laceration without foreign body, left lower leg, initial encounter (principal); S80.10XA Contusion of unspecified lower leg, initial encounter
CPT/HCPCS: 97164; 97597

== ENCOUNTER 2024-11-27 09:52 | Day surgery (SDC) | payer OTHER, SELFPAY ==
[2024-11-27 09:59] VITALS: BP 128/81; PULSE 67; RESP 18; O2SAT 98; BMI 28.4
[2024-11-27] MEDS: DEXAMETHASONE 10MG/ML 1ML VIAL 10 MG (10:10)
--- NOTE | 2024-11-27 10:14 | P.PCN_ITS ---
Procedure Date: 11/27/24 Time: 10:00 Anesthesiologist:: Renato Franco CRNA Complications:: None Pre-procedure Diagnosis:: Degenerative disc lumbar spine multilevels. Lumbar radiculopathy. Post-procedure Diagnosis:: Same. Indications for Procedure:: Is a very pleasant 59-year-old female who comes our clinic today for lumbar epidural steroid injection at the L4-5 level. Patient describes low lumbar back pain as well as bilateral hip and leg radicular symptoms as constant, dull, ac cydney, intermittent. She rates her pain 6/10. Procedure Details:: Procedure: Lumbar epidural steroid injection under fluoroscopy Informed consent was obtained and the risks and benefits of the procedure were explained to the patient. The patient was taken to the procedure room and noninvasive monitors placed, including noninvasive blood pressure cuff and pulse oximeter. The back was viewed using C-arm Fluoroscopy and prepped using Chloraprep as a cleansing solution and the L4-L5 interspace was palpated. Skin and subcutaneous tissues were anesthetized using lidocaine 1.5% and a 25-gauge needle. After this, an 18-gauge Touhy epidural needle was placed into the L4-L5 interspace and advanced using fluoroscopic guidance and loss of resistance to air until the epidural space was encountered. After confirmation of needle placement in the epidural space, with dye, a solution containing normal saline, 3 mL and dexamethasone 10 mg were incrementally injected into the lumbar epidural space. The patient tolerated the procedure well with no complications. The patient was observed in the Pain Clinic and then discharged home neurologically intact. Plan and Disposition:: Patient was discharged without incident.
[2024-11-27 10:18] VITALS: BP 126/84; PULSE 67; RESP 18; O2SAT 98
[2024-11-27 10:19] VITALS: BP 126/84; PULSE 67; RESP 18; O2SAT 98
[2024-11-27 10:25] VITALS: BP 119/87; PULSE 66; RESP 18; O2SAT 97
== END 2024-11-27 10:25 | disposition home or self-care (01) ==
PROVIDERS: PCP Family Medicine; Visit Provider Nurse Anesthetist, Certified Registered
DX: M51.16 Intervertebral disc disorders with radiculopathy, lumbar region (principal); I48.91 Unspecified atrial fibrillation; F32.A Depression, unspecified; F41.9 Anxiety disorder, unspecified; J45.909 Unspecified asthma, uncomplicated; E11.9 Type 2 diabetes mellitus without complications; K21.9 Gastro-esophageal reflux disease without esophagitis; I11.0 Hypertensive heart disease with heart failure; I50.20 Unspecified systolic (congestive) heart failure; Z88.1 Allergy status to other antibiotic agents; Z88.2 Allergy status to sulfonamides; Z88.6 Allergy status to analgesic agent; Z88.8 Allergy status to other drugs, medicaments and biological substances; Z79.85 Long-term (current) use of injectable non-insulin antidiabetic drugs; Z79.51 Long term (current) use of inhaled steroids; Z79.01 Long term (current) use of anticoagulants; Z79.899 Other long term (current) drug therapy
CPT/HCPCS: 62323; J1100